=== PATIENT | female | born 1995 | race African-American/Black ===

== ENCOUNTER 2025-01-17 16:19 | Emergency (ER) | payer MEDICAID, SELFPAY ==
[2025-01-17 16:55] VITALS: BP 121/90; PULSE 84; RESP 18; TEMP 36.7; O2SAT 100
[2025-01-17 17:22] VITALS: BP 132/68; PULSE 81; RESP 18; O2SAT 100
--- NOTE | 2025-01-17 17:31 | ED.NAVMDI ---
HPI - Nausea/Vomiting/Diarrhea General Chief complaint: Nausea/Vomiting/Diarrhea Stated complaint: dizzy, ill feeling Time Seen by Provider: 01/17/25 17:17 History of Present Illness HPI Narrative: Patient is a 29-year-old female who presents ER with nausea vomiting. Ongoing over last week. Associated with dysuria. Has urinary urgency where she needs to be in the bathroom immediately otherwise she may go on herself. She has had fatigue as well as dizziness when she goes from sitting to standing. No spinning dizziness. Dizziness does not cause her nausea. No chest pain or shortness of breath. Related Data Allergies Allergy/AdvReac Type Severity Reaction Status Date / Time No Known Allergies Allergy Verified 01/17/25 17:28 Review of Systems Review of Systems: All systems reviewed & are unremarkable except as noted in HPI and below Constitutional: Constitutional: Reports no additional constitutional complaints ENT: Reports system reviewed and no additional complaints, except as documented Cardiovascular: Cardiovascular: Reports no additional cardiovascular complaints Respiratory: Respiratory: Reports no additional respiratory complaints Gastrointestinal: Gastrointestinal: Reports no additional gastrointestinal complaints Genitourinary: Genitourinary: Reports no additional female genitourinary complaints [facility] Past Medical History Medical History (Updated 01/17/25 @ 18:37 by oJb Loaiza MD) Healthy female adult Surgical History Surgical History (Updated 01/17/25 @ 17:32 by Job Loaiza MD) No pertinent past surgical history Exam Narrative: GENERAL: Well-appearing, well-nourished, and in no acute distress. HEAD: Normocephalic, atraumatic. ENT: Mucous membranes moist. TMs normal bilaterally. CHEST: Clear to auscultation. No respiratory distress. HEART: Regular rate and rhythm. Normal peripheral pulses. ABDOMEN: Soft, nontender, nondistended. EXTREMITIES: Normal range of motion. No edema. SKIN: Warm, dry, no rash. NEURO: Alert and oriented x3. PSYCH: Normal mood and affect. Course Course Emergency Course: Nonspecific transaminitis, hemoglobin mildly elevated. Patient hydrated. Educated on lab results. Appropriate for discharge home. Abdomen soft and nontender. Vital Signs Vital signs: Vital Signs Temperature 98.0 F 01/17/25 16:55 Pulse Rate 84 01/17/25 16:55 Respiratory Rate 18 01/17/25 16:55 Blood Pressure 121/90 01/17/25 16:55 Pulse Oximetry 100 01/17/25 16:55 Oxygen Delivery Room Air 01/17/25 16:55 Temperature 98.0 F 01/17/25 16:55 Pulse Rate 81 01/17/25 17:22 Respiratory Rate 18 01/17/25 17:22 Blood Pressure 132/68 01/17/25 17:22 Pulse Oximetry 100 01/17/25 17:22 Oxygen Delivery Room Air 01/17/25 17:22 MDM - Nausea/Vomiting/Diarrhea Lab Data 01/17/25 17:43 01/17/25 17:43 Labs: Lab Results 01/17/25 Range/Units 17:43 WBC 7.0 (4.5-10.0) K/mm3 RBC 5.07 (4.2-5.4) M/mm3 Hgb 15.8 H (12.0-15.0) g/dL Hct 45.4 (37.0-47.0) % MCV 89.5 (80-100) fl MCH 31.2 (26-34) pg MCHC 34.8 (32-36) g/dl RDW 11.9 (11.5-14.5) % Plt Count 294 (150-375) k/mm3 MPV 9.2 (7.4-10.4) fl Immature Gran % (Auto) 0.3 (0-0.5) % Neut % (Auto) 65.4 (45.5-73.1) % Lymph % (Auto) 19.3 (18.3-44.2) % [place] % (Auto) 9.2 H (2.6-8.5) % Eos % (Auto) 5.1 H (0-4.4) % Baso % (Auto) 0.7 (0.2-1.2) % Lymph # (Auto) 1.36 (0.9-3.2) K/mm3 [place] # (Auto) 0.7 H (0.1-0.6) K/mm3 Eos # (Auto) 0.4 H (0-0.3) K/mm3 Baso # (Auto) 0.1 (0.0-0.1) K/mm3 Abs Immat Gran (auto) 0.02 (0.00-0.031) K/mm3 Absolute Neuts (auto) 4.6 (1.3-6.7) K/mm3 Absolute Nucleated RBC 0.000 (0.0-0.012) K/mm3 Nucleated RBC % 0.0 (0.0-0.2) % Sodium 139 (137-145) mmol/L Potassium 4.1 (3.4-5.0) mmol/L Chloride 106 (98-107) mmol/L Carbon Dioxide 25 (22-30) mmol/L Anion Gap 8 (4-12) mmol/L BUN 13 (7-17) mg/dL Creatinine 0.93 (0.7-1.0) mg/dL Estim Creat Clear Calc 114 ml/min Estimated GFR > 60 (59 - ) Glucose 85 (65-110) mg/dL Calcium 9.4 (8.4-10.2) mg/dL Total Bilirubin 0.7 (0.2-1.3) mg/dL AST 45 H (14-36) U/L ALT 61 H (6-35) U/L Alkaline Phosphatase 62 (38-126) U/L Total Protein 8.4 H (6.3-8.2) g/dL Albumin 4.6 (3.5-5.1) g/dL Lipase 100 (23-300) U/L Urine Color Yellow (Yellow) Urine Appearance Cloudy H (Clear) Urine pH 6.5 (5.0-9.0) Ur Specific [place] 1.030 (1.001-1.035) Urine Protein Negative (Negative) mg/dL Urine Glucose (UA) Negative (Negative) mg/dL Urine Ketones Negative (Negative) mg/dL Ur Blood (Man) Negative (Negative) Urine Nitrate Negative (Negative) Urine Bilirubin Negative (Negative) Urine Urobilinogen 1.0 (<2.0) mg/dL Leukocyte Esterase Rfl Negative (Negative) MICHELE/UL Urine RBC 0-2 (0-2) /hpf Urine WBC 0-5 (0-3) /hpf Ur Squamous Epith Cells Occasional (Few) /hpf Urine Bacteria None seen /hpf Urine Casts 3-5 Discharge Plan Discharge Clinical Impression: Acute viral syndrome Patient Disposition: Home Condition: Stable Instructions: Viral Syndrome (ED) Additional Instructions: Return to the emergency department if you develop severe abdominal pain, severe nausea and vomiting to the point where you are unable to keep down fluids, if you develop chest pain or difficulty breathing, blood in your stool, dizziness or fainting, or if you develop any other new or concerning symptoms as these could be signs of more serious medical illness. Try to stay well hydrated. Patient Language: Israeli Follow-up/Referrals: PHYSICIAN NOT ON STAFF,NONSTAFF [Non-Staff] - 1 Week Stand Alone Forms: Work/School Release IP
[2025-01-17] MEDS: SODIUM CHLORIDE 0.9% IV 1,000 ML 999 ML IV CONT (17:42)
[2025-01-17] MEDS: ONDANSETRON INJ 4 MG/2 ML VIAL IV PUSH (17:42)
[2025-01-17 17:56] LABS: Hematocrit 45.4 % (37.0-47.0); Hemoglobin 15.8 g/dL (12.0-15.0); Immature Granulocyte Percent A 0.3 % (0-0.5); Lymphocytes Absolute Auto 1.36 K/mm3 (0.9-3.2); Mean Corpuscular HGB Conc 34.8 g/dl (32-36); Mean Corpuscular Hemoglobin 31.2 pg (26-34); Mean Corpuscular Volume 89.5 fl (80-100); Nucleated Red Blood Cells Absolute Auto 0.000 K/mm3 (0.0-0.012); Nucleated Red Blood Cells Perc 0.0 % (0.0-0.2); Platelet Count Result 294 k/mm3 (150-375); Red Blood Count 5.07 M/mm3 (4.2-5.4); White Blood Count 7.0 K/mm3 (4.5-10.0)
[2025-01-17 18:00] LABS: Add Urine Microscopic? YES; Appearance Urine Cloudy (Clear); Glucose Urine UA Negative (Negative); Leukocyte Esterase Ur Negative LEU/UL (Negative); Nitrate Urine Negative (Negative); Specific Grav Ur 1.030 (1.001-1.035)
[2025-01-17 18:06] LABS: Alanine Aminotransferase 61 U/L (6-35); Albumin Level 4.6 g/dL (3.5-5.1); Alkaline Phosphatase 62 U/L (38-126); Anion Gap 8 mmol/L (4-12); Aspartate Amino Transferase 45 U/L (14-36); Bilirubin,Total 0.7 mg/dL (0.2-1.3); Blood Urea Nitrogen 13 mg/dL (7-17); Calcium 9.4 mg/dL (8.4-10.2); Carbon Dioxide 25 mmol/L (22-30); Chloride 106 mmol/L (98-107); Estimated CRCL calculation 114 ml/min; Estimated Glomerular Filt Rate > 60; Glucose 85 mg/dL (65-110); Lipase 100 U/L (23-300); Potassium 4.1 mmol/L (3.4-5.0); Sodium 139 mmol/L (137-145); Total Protein 8.4 g/dL (6.3-8.2)
== END 2025-01-17 19:20 | disposition home or self-care (01) ==
PROVIDERS: Emergency Provider Emergency Medicine
DX: B34.9 Viral infection, unspecified (principal)
CPT/HCPCS: 36415; 80053; 81001; 83690; 85025; 96361; 96374; 99284; J2405; J7030

== ENCOUNTER 2025-02-09 21:20 | Emergency (ER) | payer MEDICAID, SELFPAY ==
--- NOTE | ~2025-02-09 | XR_ITS ---
EXAMINATION: XR chest 1V portable DATE: 02/10/2025 00:15 INDICATION: Cough TECHNIQUE: frontal view of the chest was obtained. COMPARISON: None FINDINGS: Patchy airspace opacities in the right mid and lower lung zones concerning for pneumonia. Left lung remains clear. No pulmonary edema, pleural effusion or pneumothorax. The cardiomediastinal silhouette is normal. Visualized bones and soft tissues are unremarkable. IMPRESSION: 1. Patchy airspace opacities in the right mid and lower lung zones consistent with pneumonia. Recommend radiographic follow-up to resolution. Reviewed, dictated and finalized at location A. IMPRESSION: 1. Patchy airspace opacities in the right mid and lower lung zones consistent w ith pneumonia. Recommend radiographic follow-up to resolution.
[2025-02-09 21:22] VITALS: BP 143/94; PULSE 75; RESP 18; TEMP 36.6; O2SAT 100
[2025-02-09 22:14] LABS: Influenza A QL RT-PCR Negative (Negative); Influenza B QL RT-PCR Negative (Negative); RSV RNA, RT-PCR Negative (Negative); SARS-CoV-2 RNA PCR Negative (Negative)
[2025-02-09 22:45] LABS: BEDSIDEPREGUCG Negative (Negative)
[2025-02-09 23:15] LABS: Hematocrit 40.9 % (37.0-47.0); Hemoglobin 14.3 g/dL (12.0-15.0); Immature Granulocyte Percent A 0.2 % (0-0.5); Lymphocytes Absolute Auto 1.52 K/mm3 (0.9-3.2); Mean Corpuscular HGB Conc 35.0 g/dl (32-36); Mean Corpuscular Hemoglobin 31.6 pg (26-34); Mean Corpuscular Volume 90.3 fl (80-100); Nucleated Red Blood Cells Absolute Auto 0.000 K/mm3 (0.0-0.012); Nucleated Red Blood Cells Perc 0.0 % (0.0-0.2); Platelet Count Result 298 k/mm3 (150-375); Red Blood Count 4.53 M/mm3 (4.2-5.4); White Blood Count 8.3 K/mm3 (4.5-10.0)
[2025-02-09 23:19] LABS: Alanine Aminotransferase 34 U/L (6-35); Albumin Level 4.2 g/dL (3.5-5.1); Alkaline Phosphatase 81 U/L (38-126); Anion Gap 7 mmol/L (4-12); Aspartate Amino Transferase 32 U/L (14-36); Bilirubin,Total 0.3 mg/dL (0.2-1.3); Blood Urea Nitrogen 6 mg/dL (7-17); Calcium 9.3 mg/dL (8.4-10.2); Carbon Dioxide 26 mmol/L (22-30); Chloride 103 mmol/L (98-107); Estimated CRCL calculation 183 ml/min; Estimated Glomerular Filt Rate > 60; Glucose 85 mg/dL (65-110); Potassium 3.8 mmol/L (3.4-5.0); Sodium 136 mmol/L (137-145); Total Protein 8.1 g/dL (6.3-8.2)
[2025-02-09 23:22] VITALS: BP 146/98; PULSE 71; RESP 20; O2SAT 100
--- NOTE | 2025-02-09 23:51 | ECG_ITS ---
Test Date: 2025-02-10 00:00:13 Measurements Intervals [place] Rate: 69 P: 17 [place]: 136 QRS: 33 QRSD: 97 T: 29 QT: 387 QTc: 415 Interpretive Statements SINUS RHYTHM NONSPECIFIC T-WAVE ABNORMALITY ABNORMAL ECG No previous ECG available for comparison Electronically Signed On 02-10-2025 11:11:34 CDT by Delbert Bean M.D.
--- NOTE | 2025-02-09 23:53 | ED_ITS ---
HPI - Dizziness General Chief Complaint: Dizziness Stated Complaint: Dizziness, sweating, hot and cold flashes Time Seen by Provider: 02/09/25 23:21 History of Present Illness HPI Narrative: 29 y/o F presents to the emergency department for multiple medical complaints. Patient states over the past 3 3 days she has had nausea, vomiting, 2 episodes of diarrhea daily. She states today she began to feel lightheaded when going from a sitting to standing position which prompted her to come to the ED. she states her children recently sick with similar symptoms, however there symptoms did not last for 3 days. She denies any fever or chest pain. She is endorsing a mild productive cough. Denies fever. She states her abdomen feels ?bloated?, but she denies any focal pain. She denies dysuria or hematuria but does state that she has had a malodorous vaginal discharge over the past few days. She states she is sexually active with her and has no concern for STDs. She denies vaginal itching or irritation, denies vaginal bleeding. LMP 01/29/2025. Related Data Allergies Allergy/AdvReac Type Severity Reaction Status Date / Time No Known Allergies Allergy Verified 01/17/25 17:28 Review of Systems 2 Review of Systems: All systems reviewed & are unremarkable except as noted in HPI and below PMFSH Past Medical History Medical History Healthy female adult Surgical History Surgical History No pertinent past surgical history Exam 2 Narrative: GENERAL: Well-appearing, well-nourished, and in no acute distress. HEAD: Normocephalic, atraumatic. EYES: EOMI. ENT: Nares clear, no rhinorrhea or epistaxis. Mucous membranes moist. NECK: Supple. CHEST: Clear to auscultation. No respiratory distress. HEART: Regular rate and rhythm. No murmur heard. Normal peripheral pulses. ABDOMEN: Soft, nontender, nondistended, normal active bowel sounds. No rebound, guarding or rigidity. No CVA tenderness. EXTREMITIES: Normal range of motion. No edema. SKIN: Warm, dry, no rash. NEURO: No focal deficits. Alert and oriented x3 Course Vital Signs Vital signs: Vital Signs Temperature 97.9 F 09/02/25 21:22 Pulse Rate 75 02/09/25 21:22 Respiratory Rate 18 02/09/25 21:22 Blood Pressure 143/94 H 02/09/25 21:22 Pulse Oximetry 100 02/09/25 21:22 Oxygen Delivery Room Air 02/09/25 21:22 Temperature 97.9 F 02/09/25 21:22 Pulse Rate 97 02/10/25 00:21 Respiratory Rate 20 02/10/25 00:19 Blood Pressure 132/81 02/10/25 00:21 Pulse Oximetry 100 02/10/25 00:19 Oxygen Delivery Room Air 02/09/25 21:22 MDM - Dizziness MDM Narrative Medical decision making narrative: 29-year-old female presents emergency department for multiple medical complaints. Patient is reporting N/V/D, lightheadedness when going from sitting to standing position, cough and vaginal discharge. See HPI for further history. Triage vitals are stable. Patient is afebrile and nontoxic appearing and resting comfortably in exam bed. Abdomen is soft and nontender. CBC without leukocytosis or anemia. Chemistries are unremarkable. Lipase is within normal limits. is negative. Viral swabs are negative. UA is unremarkable. BV pending. EKG shows normal sinus rhythm with a rate of 69 ppm, normal SD interval, normal QRS duration, normal QTC, no ST elevations or depressions. Chest x-ray shows increased opacities in the right lung, recommend correlation with infection. Pt received IV fluids and Zofran and is resting comfortably in exam bed on re- evaluation. Pt ambulatory in the ED with steady gait. Will treat for CAP with Augmentin and azithromycin. Curb-65 is 0. I advised her to follow-up with PCP, referral provided. Additionally I did discuss empirically treating for BV pending formal results. Patient would like to wait for results prior to treatment. Will provide her with OBGYN follow-up. Discussed strict ED return precautions. Patient is agreeable to plan verbalized understanding. Discharged in stable condition. Lab Data 02/09/25 23:02 02/09/25 23:02 Labs: Lab Results 02/09/25 02/09/25 02/09/25 Range/Units 21:32 22:43 23:02 WBC 8.3 (4.5-10.0) K/mm3 RBC 4.53 (4.2-5.4) M/mm3 Hgb 14.3 (12.0-15.0) g/dL Hct 40.9 (37.0-47.0) % MCV 90.3 (80-100) fl MCH 31.6 (26-34) pg MCHC 35.0 (32-36) g/dl RDW 12.1 (11.5-14.5) % Plt Count 298 (150-375) k/mm3 MPV 8.8 (7.4-10.4) fl Immature Gran % (Auto) 0.2 (0-0.5) % Neut % (Auto) 71.1 (45.5-73.1) % Lymph % (Auto) 18.4 (18.3-44.2) % [place] % (Auto) 7.5 (2.6-8.5) % Eos % (Auto) 2.4 (0-4.4) % Baso % (Auto) 0.4 (0.2-1.2) % Lymph # (Auto) 1.52 (0.9-3.2) K/mm3 [place] # (Auto) 0.6 (0.1-0.6) K/mm3 Eos # (Auto) 0.2 (0-0.3) K/mm3 Baso # (Auto) 0.0 (0.0-0.1) K/mm3 Abs Immat Gran (auto) 0.02 (0.00-0.031) K/mm3 Absolute Neuts (auto) 5.9 (1.3-6.7) K/mm3 Absolute Nucleated RBC 0.000 (0.0-0.012) K/mm3 Nucleated RBC % 0.0 (0.0-0.2) % Sodium 136 L (137-145) mmol/L Potassium 3.8 (3.4-5.0) mmol/L Chloride 103 (98-107) mmol/L Carbon Dioxide 26 (22-30) mmol/L Anion Gap 7 (4-12) mmol/L BUN 6 L D (7-17) mg/dL Creatinine 0.57 L (0.7-1.0) mg/dL Estim Creat Clear Calc 183 ml/min Estimated GFR > 60 (59 - ) Glucose 85 (65-110) mg/dL Calcium 9.3 (8.4-10.2) mg/dL Total Bilirubin 0.3 (0.2-1.3) mg/dL AST 32 (14-36) U/L ALT 34 (6-35) U/L Alkaline Phosphatase 81 (38-126) U/L Total Protein 8.1 (6.3-8.2) g/dL Albumin 4.2 (3.5-5.1) g/dL Lipase 78 (23-300) U/L Urine Color (Yellow) Urine Appearance (Clear) Urine pH (5.0-9.0) Ur Specific [place] (1.001-1.035) Urine Protein (Negative) mg/dL Urine Glucose (UA) (Negative) mg/dL Urine Ketones (Negative) mg/dL Ur Blood (Man) (Negative) Urine Nitrate (Negative) Urine Bilirubin (Negative) Urine Urobilinogen (<2.0) mg/dL Leukocyte Esterase Rfl (Negative) MICHELE/UL POC Urine HCG, Qual Negative (Negative) Influenza A (RT-PCR) Negative (Negative) Influenza B (RT-PCR) Negative (Negative) RSV (RT-PCR) Negative (Negative) SARS-CoV-2 RNA (RT-PCR) Negative (Negative) Bact Vaginosis Panel 02/09/25 Range/Units 23:59 WBC (4.5-10.0) K/mm3 RBC (4.2-5.4) M/mm3 Hgb (12.0-15.0) g/dL Hct (37.0-47.0) % MCV (80-100) fl MCH (26-34) pg MCHC (32-36) g/dl RDW (11.5-14.5) % Plt Count (150-375) k/mm3 MPV (7.4-10.4) fl Immature Gran % (Auto) (0-0.5) % Neut % (Auto) (45.5-73.1) % Lymph % (Auto) (18.3-44.2) % [place] % (Auto) (2.6-8.5) % Eos % (Auto) (0-4.4) % Baso % (Auto) (0.2-1.2) % Lymph # (Auto) (0.9-3.2) K/mm3 [place] # (Auto) (0.1-0.6) K/mm3 Eos # (Auto) (0-0.3) K/mm3 Baso # (Auto) (0.0-0.1) K/mm3 Abs Immat Gran (auto) (0.00-0.031) K/mm3 Absolute Neuts (auto) (1.3-6.7) K/mm3 Absolute Nucleated RBC (0.0-0.012) K/mm3 Nucleated RBC % (0.0-0.2) % Sodium (137-145) mmol/L Potassium (3.4-5.0) mmol/L Chloride (98-107) mmol/L Carbon Dioxide (22-30) mmol/L Anion Gap (4-12) mmol/L BUN (7-17) mg/dL Creatinine (0.7-1.0) mg/dL Estim Creat Clear Calc ml/min Estimated GFR (59 - ) Glucose (65-110) mg/dL Calcium (8.4-10.2) mg/dL Total Bilirubin (0.2-1.3) mg/dL AST (14-36) U/L ALT (6-35) U/L Alkaline Phosphatase (38-126) U/L Total Protein (6.3-8.2) g/dL Albumin (3.5-5.1) g/dL Lipase (23-300) U/L Urine Color Yellow (Yellow) Urine Appearance Clear (Clear) Urine pH 8.5 (5.0-9.0) Ur Specific [place] 1.011 (1.001-1.035) Urine Protein Negative (Negative) mg/dL Urine Glucose (UA) Negative (Negative) mg/dL Urine Ketones Negative (Negative) mg/dL Ur Blood (Man) Negative (Negative) Urine Nitrate Negative (Negative) Urine Bilirubin Negative (Negative) Urine Urobilinogen 0.2 (<2.0) mg/dL Leukocyte Esterase Rfl Negative (Negative) MICHELE/UL POC Urine HCG, Qual (Negative) Influenza A (RT-PCR) (Negative) Influenza B (RT-PCR) (Negative) RSV (RT-PCR) (Negative) SARS-CoV-2 RNA (RT-PCR) (Negative) Bact Vaginosis Panel Pending Discharge Plan Discharge Clinical Impression: CAP (community acquired pneumonia), Vaginal discharge Patient Disposition: Home Condition: Stable Instructions: Antibiotic Form, Community Acquired Pneumonia (DC), Bacterial Pneumonia (DC), Vaginal Discharge (ED) Additional Instructions: Please take antibiotics as directed. Make sure to drink plenty fluids including water, Gatorade and Pedialyte. Follow-up closely with the primary care provider in OBGYN I have referred you to. Return to the emergency department if you develop abdominal pain, fever, vomiting, or other concerning symptoms. Patient Language: Greek Prescriptions: New azithromycin 250 mg tablet See Rx Instructions .ROUTE .COMPLEX Qty: 6 0RF Rx Instructions: For 250 mg dose pack: take 500 mg today (day 1), then 250 mg for 4 days (days 2-5) amoxicillin-pot clavulanate 875-125 mg tablet 1 tablet PO Q12H Qty: 14 0RF ondansetron 4 mg tablet,disintegrating 4 mg PO Q8H Qty: 10 0RF Follow-up/Referrals: Franklin Mckay MD [Physician, Family Practice] PHYSICIAN,WASTE OIL PUMPER [Primary Care Provider, Internal Medicine] Tejas Langford MD [Physician, [facility]NER] Stand Alone Forms: Work/School Release IP
[2025-02-10] MEDS: SODIUM CHLORIDE 0.9% IV 1,000 ML 999 ML IV CONT
[2025-02-10] MEDS: ONDANSETRON INJ 4 MG/2 ML VIAL IV PUSH
[2025-02-10 00:02] LABS: Lipase 78 U/L (23-300)
[2025-02-10 00:15] LABS: Add Urine Microscopic? NO; Appearance Urine Clear (Clear); Glucose Urine UA Negative (Negative); Leukocyte Esterase Ur Negative LEU/UL (Negative); Nitrate Urine Negative (Negative); Specific Grav Ur 1.011 (1.001-1.035)
[2025-02-10 00:19] VITALS: BP 131/77; PULSE 69; RESP 20; O2SAT 100
[2025-02-10 00:20] VITALS: BP 131/77; PULSE 61
[2025-02-10 00:21] VITALS: BP 129/70; BP 132/81; PULSE 80; PULSE 97
[2025-02-10] MEDS: AZITHROMYCIN 500 MG TABLET PO (03:24)
== END 2025-02-10 03:30 | disposition home or self-care (01) ==
PROVIDERS: Student in an Organized Health Care Education/Training Program; Emergency Provider Physician Assistant
DX: J18.9 Pneumonia, unspecified organism (principal); N89.8 Other specified noninflammatory disorders of vagina; Z20.822 Contact with and (suspected) exposure to COVID-19
CPT/HCPCS: 36415; 71045; 80053; 81003; 81025; 81513; 83690; 85025; 87637; 87798; 93005; 96361; 96374; 99284; A9270; J2405; J7030

== ENCOUNTER 2025-03-09 23:45 | Emergency (ER) | payer SELFPAY ==
--- NOTE | ~2025-03-09 | US_ITS ---
US OB transvaginal 03/10/2025 03:55 Indication: Evaluate for ectopic . Procedure: Transvaginal early obstetrical ultrasound Comparison: No prior studies for comparison. Findings: Uterus measures 8.2 x 3.8 x 4.4 cm. No intrauterine identified. Ovaries within normal limits. Right ovary measures 4.2 x 2.1 x 2.5 cm. Left ovary measures 2.6 x 1.7 x 1.9 cm. There is trace free fluid in the pelvic cul-de-sac. No intrauterine identified. Impression: 1: No evidence for gestational sac or intrauterine . Normal endometrium. Differential diagnosis includes early intrauterine , failed and ectopic . Recommend follow-up with serial quantitative beta-hCG levels and ultrasound as clinically warranted. Reviewed, dictated and finalized at location B. Impression: 1: No evidence for gestational sac or intrauterine . Normal endometriu m. Differential diagnosis includes early intrauterine , failed pregnan cy and ectopic . Recommend follow-up with serial quantitative beta-hCG levels and ultrasound as clinically warranted.
[2025-03-09 23:48] VITALS: BP 166/83; PULSE 97; RESP 20; TEMP 36.7; O2SAT 98
[2025-03-10 02:15] LABS: INR 1.1; Partial Thromboplastin Time 30.5 Seconds (22.3-36.8); Prothrombin Time 14.2 Seconds (11.1-14.7)
[2025-03-10 02:16] LABS: Hematocrit 40.1 % (37.0-47.0); Hemoglobin 13.9 g/dL (12.0-15.0); Immature Granulocyte Percent A 0.1 % (0-0.5); Lymphocytes Absolute Auto 1.77 K/mm3 (0.9-3.2); Mean Corpuscular HGB Conc 34.7 g/dl (32-36); Mean Corpuscular Hemoglobin 31.1 pg (26-34); Mean Corpuscular Volume 89.7 fl (80-100); Nucleated Red Blood Cells Absolute Auto 0.000 K/mm3 (0.0-0.012); Nucleated Red Blood Cells Perc 0.0 % (0.0-0.2); Platelet Count Result 306 k/mm3 (150-375); Red Blood Count 4.47 M/mm3 (4.2-5.4); White Blood Count 8.1 K/mm3 (4.5-10.0)
[2025-03-10 02:17] LABS: Alanine Aminotransferase 44 U/L (6-35); Albumin Level 4.0 g/dL (3.5-5.1); Alkaline Phosphatase 65 U/L (38-126); Anion Gap 8 mmol/L (4-12); Aspartate Amino Transferase 47 U/L (14-36); Beta HCG Quantitative 400.96 mIU/ML; Bilirubin,Total 0.3 mg/dL (0.2-1.3); Blood Urea Nitrogen 13 mg/dL (7-17); Calcium 9.4 mg/dL (8.4-10.2); Carbon Dioxide 23 mmol/L (22-30); Chloride 107 mmol/L (98-107); Estimated CRCL calculation 148 ml/min; Estimated Glomerular Filt Rate > 60; Glucose 101 mg/dL (65-110); Potassium 3.7 mmol/L (3.4-5.0); Sodium 138 mmol/L (137-145); Total Protein 7.4 g/dL (6.3-8.2)
[2025-03-10 02:20] LABS: Add Urine Microscopic? YES; Appearance Urine Cloudy (Clear); Glucose Urine UA Negative (Negative); Leukocyte Esterase Ur Negative LEU/UL (Negative); Need Manual Microscopic Reviewed; Nitrate Urine Negative (Negative); Non Pathogenic Casts 0-2; Specific Grav Ur 1.028 (1.001-1.035)
--- NOTE | 2025-03-10 03:39 | ED.FEMALEGU ---
HPI - Female Genitourinary General Chief complaint: ART CLASS MODEL Stated complaint: menstural cramp, vag bleed Time Seen by Provider: 03/10/25 02:54 History of Present Illness HPI Narrative: 29-year-old otherwise healthy female presenting to the emergency department vaginal bleeding and abdominal cramping. She states she is having what appears to be an abnormal. For her. It is late by about 1 week. Denies any bright red bleeding states she is passing dark brown material. Endorses cramping intermittently. No fever, chills, upper abdominal pain, nausea, vomiting. Her thought she could be . Has a history of preeclampsia during previous pregnancies but no surgical emergencies. Does not currently have an OBGYN as she moved from out of [facility]. Related Data Allergies Allergy/AdvReac Type Severity Reaction Status Date / Time No Known Allergies Allergy Verified 03/09/25 23:52 Review of Systems Review of Systems: As reviewed above in HPI [facility] Past Medical History Medical History Healthy female adult Surgical History Surgical History No pertinent past surgical history Exam Narrative: GENERAL: [Well-appearing, well-nourished, and in no acute distress.] HEAD: [Normocephalic, atraumatic.] EYES: [PERRLA and EOMI.] ENT: Nares clear, no rhinorrhea or epistaxis. Mucous membranes moist. NECK: Supple. CHEST: [Clear to auscultation. No respiratory distress.] HEART: [Regular rate and rhythm]. No murmur heard. [Normal peripheral pulses.] ABDOMEN: [Soft, nondistended], [nontender], [No rigidity or guarding] EXTREMITIES: Normal range of motion. [No edema.] SKIN: Warm, dry, no rash. NEURO: [No focal deficits]. Alert and oriented [x3.] PSYCH: [Normal mood and affect.] Course Vital Signs Vital signs: Vital Signs Temperature 36.7 C 03/09/25 23:48 Pulse Rate 97 03/09/25 23:48 Respiratory Rate 20 03/09/25 23:48 Blood Pressure 166/83 H 03/09/25 23:48 Pulse Oximetry 98 03/09/25 23:48 Oxygen Delivery Room Air 03/09/25 23:48 Temperature 36.7 C 03/09/25 23:48 Pulse Rate 97 03/09/25 23:48 Respiratory Rate 20 03/09/25 23:48 Blood Pressure 166/83 H 03/09/25 23:48 Pulse Oximetry 98 03/09/25 23:48 Oxygen Delivery Room Air 03/09/25 23:48 MDM - Female Genitourinary MDM Narrative Medical decision making narrative: 29-year-old otherwise healthy female presenting to the emergency department vaginal bleeding and abdominal cramping. She states she is having what appears to be an abnormal. For her. It is late by about 1 week. Denies any bright red bleeding states she is passing dark brown material. Endorses cramping intermittently. No fever, chills, upper abdominal pain, nausea, vomiting. Her thought she could be . Has a history of preeclampsia during previous pregnancies but no surgical emergencies. Does not currently have an OBGYN [place] Patient is hemodynamically stable but does have an elevated blood pressure. No tachycardia, fever, hypoxemia. Differential includes normal vaginal bleeding in , ectopic , miscarriage, menstrual cycle, irregular or dysfunctional uterine bleeding. Patient's test is positive. Remaining laboratory studies are largely unremarkable. Ultrasound obtained to rule out ectopic . Ultrasound shows no acute abnormality. No gestational sac seen but beta hCG is only 400 so unlikely be visualized. Likely early versus ectopic not able to be ruled out. Unremarkable ovaries. Discussed this with the patient and she will need to follow-up with 48 hour ultrasound and hCG levels. Given OBGYN follow-up and referral and if she is not able to follow-up by Saturday she should return to the emergency department for these tests and imaging. Patient expressed understanding these instructions and safely discharged home at this time. Medical Records Attestation: I reviewed the patient's medical records. Lab Data Attestation: I reviewed the patient's lab results. 03/10/25 00:52 03/10/25 00:52 Labs: Lab Results 03/10/25 03/10/25 Range/Units 00:52 00:56 WBC 8.1 (4.5-10.0) K/mm3 RBC 4.47 (4.2-5.4) M/mm3 Hgb 13.9 (12.0-15.0) g/dL Hct 40.1 (37.0-47.0) % MCV 89.7 (80-100) fl MCH 31.1 (26-34) pg MCHC 34.7 (32-36) g/dl RDW 12.4 (11.5-14.5) % Plt Count 306 (150-375) k/mm3 MPV 8.9 (7.4-10.4) fl Immature Gran % (Auto) 0.1 (0-0.5) % Neut % (Auto) 65.3 (45.5-73.1) % Lymph % (Auto) 21.8 (18.3-44.2) % [place] % (Auto) 9.0 H (2.6-8.5) % Eos % (Auto) 3.3 (0-4.4) % Baso % (Auto) 0.5 (0.2-1.2) % Lymph # (Auto) 1.77 (0.9-3.2) K/mm3 [place] # (Auto) 0.7 H (0.1-0.6) K/mm3 Eos # (Auto) 0.3 (0-0.3) K/mm3 Baso # (Auto) 0.0 (0.0-0.1) K/mm3 Abs Immat Gran (auto) 0.01 (0.00-0.031) K/mm3 Absolute Neuts (auto) 5.3 (1.3-6.7) K/mm3 Absolute Nucleated RBC 0.000 (0.0-0.012) K/mm3 Nucleated RBC % 0.0 (0.0-0.2) % PT 14.2 (11.1-14.7) Seconds INR 1.1 APTT 30.5 (22.3-36.8) Seconds Sodium 138 (137-145) mmol/L Potassium 3.7 (3.4-5.0) mmol/L Chloride 107 (98-107) mmol/L Carbon Dioxide 23 (22-30) mmol/L Anion Gap 8 (4-12) mmol/L BUN 13 D (7-17) mg/dL Creatinine 0.72 (0.7-1.0) mg/dL Estim Creat Clear Calc 148 ml/min Estimated GFR > 60 (59 - ) Glucose 101 (65-110) mg/dL Calcium 9.4 (8.4-10.2) mg/dL Total Bilirubin 0.3 (0.2-1.3) mg/dL AST 47 H (14-36) U/L ALT 44 H (6-35) U/L Alkaline Phosphatase 65 (38-126) U/L Total Protein 7.4 (6.3-8.2) g/dL Albumin 4.0 (3.5-5.1) g/dL Beta HCG, Quant 400.96 mIU/ML Urine Color Yellow (Yellow) Urine Appearance Cloudy H (Clear) Urine pH 6.0 (5.0-9.0) Ur Specific [place] 1.028 (1.001-1.035) Urine Protein Negative (Negative) mg/dL Urine Glucose (UA) Negative (Negative) mg/dL Urine Ketones Trace H (Negative) mg/dL Ur Blood (Man) Negative (Negative) Urine Nitrate Negative (Negative) Urine Bilirubin Negative (Negative) Urine Urobilinogen 1.0 (<2.0) mg/dL Add Ur Microanalysis Reviewed Leukocyte Esterase Rfl Negative (Negative) MICHELE/UL Urine RBC 0-2 (0-2) /hpf Urine WBC 0-5 (0-3) /hpf Ur Squamous Epith Cells None seen (Few) /hpf Urine Bacteria None seen /hpf Urine Casts 0-2 Imaging Data Attestation: I personally reviewed and interpreted this imaging study as follows: Radiologist's impression: No acute abnormality. Unremarkable ovaries. No gestational sac early versus failed versus ectopic Discharge Plan Discharge Clinical Impression: Bleeding in early Patient Disposition: Home Condition: Stable Instructions: Antibiotic Form, Abdominal Pain in (ED) Additional Instructions: Your beta hCG level is only 400 which is below the visualized below threshold for location. Ultrasound does not show any free fluid or bleeding but we do not have a visualized below K showed the . Follow-up in 48 hours for repeat hCG testing and repeat ultrasound. Contact the provided OBGYN to get this done and if not able to return to the emergency department. Return with any urgent concerns such as worsening bleeding or pain or any other issues. Patient Language: Macanese Prescriptions: No Action azithromycin 250 mg tablet See Rx Instructions .ROUTE .COMPLEX Qty: 6 0RF Rx Instructions: For 250 mg dose pack: take 500 mg today (day 1), then 250 mg for 4 days (days 2-5) amoxicillin-pot clavulanate 875-125 mg tablet 1 tablet PO Q12H Qty: 14 0RF ondansetron 4 mg tablet,disintegrating 4 mg PO Q8H Qty: 10 0RF Follow-up/Referrals: Ryan Melendez MD [Physician, [employer]ER] - 2 Days Referral Note: [facility] and [facility] PHYSICIAN,SENIOR LOAN OFFICER [Primary Care Provider, Internal Medicine] Time of Disposition: 05:25
== END 2025-03-10 05:37 | disposition home or self-care (01) ==
PROVIDERS: Emergency Provider Student in an Organized Health Care Education/Training Program
DX: O20.9 Hemorrhage in early pregnancy, unspecified (principal); Z3A.00 Weeks of gestation of pregnancy not specified
CPT/HCPCS: 36415; 76817; 80053; 81001; 84702; 85025; 85610; 85730; 99284

== ENCOUNTER 2025-03-12 20:59 | Emergency (ER) | payer OTHER, SELFPAY ==
[2025-03-12 21:01] VITALS: BP 140/82; PULSE 99; RESP 18; TEMP 36.7; O2SAT 97
--- NOTE | 2025-03-12 22:47 | ED.DIZZY ---
HPI - Dizziness General Chief Complaint: Dizziness Stated Complaint: possible preg test Time Seen by Provider: 03/12/25 22:21 History of Present Illness HPI Narrative: Patient is a 29-year-old female who presents to the ER with complaints of dizziness and request for an hCG recheck. She reports she was here 2 days ago and was told she was but needed to follow-up for concurrent hCG levels. Patient reports she has been experiencing dizziness, nausea and vomiting, GERD since she was here. She denies any vaginal bleeding, urinary symptoms, abdominal pain. Patient is unsure when her last menstrual period was because her menstrual periods are irregular at baseline. She denies any concern for STDs. Patient reports she has had a total of 5 pregnancies with 2 living births. Related Data Allergies Allergy/AdvReac Type Severity Reaction Status Date / Time No Known Allergies Allergy Verified 03/12/25 21:04 Review of Systems Review of Systems: All systems reviewed & are unremarkable except as noted in HPI and below PMFSH Past Medical History Medical History Healthy female adult Surgical History Surgical History No pertinent past surgical history Exam Narrative: GENERAL: Well appearing, obese, non-toxic, in no acute distress. HEAD: Normocephalic, atraumatic. NECK: Supple. No adenopathy, no masses. RESPIRATORY: Airway patent, respirations nonlabored. Clear to auscultation bilaterally, no rales, rhonchi, wheezing. CARDIOVASCULAR: Regular rate and rhythm without murmurs, rubs, or gallops. Peripheral pulses 2+ and equal bilaterally. ABDOMINAL: Soft, nontender, nondistended, no hepatosplenomegaly. Normoactive BS. MUSCULOSKELETAL: Moves all extremities. Strength/ROM intact without gross deformities. SKIN: Warm, dry, normal color. No rashes. NEURO: A&O X3. Speech clear. Cranial nerves II-XII intact. No ataxic movements. PSYCHIATRIC: Appropriate mood and affect. Normal interaction. Course Vital Signs Vital signs: Vital Signs Temperature 36.7 C 03/12/25 21:01 Pulse Rate 99 03/12/25 21:01 Respiratory Rate 18 03/12/25 21:01 Blood Pressure 140/82 03/12/25 21:01 Pulse Oximetry 97 03/12/25 21:01 Oxygen Delivery Room Air 03/12/25 21:01 Temperature 36.7 C 03/12/25 21: Pulse Rate 99 03/12/25 21:01 Respiratory Rate 18 03/12/25 21:01 Blood Pressure 140/82 03/12/25 21:01 Pulse Oximetry 97 03/12/25 21:01 Oxygen Delivery Room Air 03/12/25 21:01 MDM - Dizziness MDM Narrative Medical decision making narrative: Patient is a 29-year-old female who presents to the ER with complaints of dizziness and request for an hCG recheck. She reports she was here 2 days ago and was told she was but needed to follow-up for concurrent hCG levels. Patient reports she has been experiencing dizziness, nausea and vomiting, GERD since she was here. She denies any vaginal bleeding, urinary symptoms, abdominal pain. Patient is unsure when her last menstrual period was because her menstrual periods are irregular at baseline. She denies any concern for STDs. Patient reports she has had a total of 5 pregnancies with 2 living births. Upon further discussion patient reports she has been intermittently passing some dark brown vaginal discharge. Labs Ordered: CBC, CMP, UA, beta hCG Imaging Ordered: None necessary Medications Ordered: 1 L normal saline IV bolus, Zofran 4 mg IV, Keflex p.o. Results: Patient's urinalysis indicates she has urinary tract infection. Her HCG levels have not increased much from when she was here in the ER two days ago. Diagnosis: Urinary tract infection, threatened miscarriage Patient Education/Shared MDM: Results of lab work shared with patient. Patient continues to deny any pain at this time. She will be given her 1st dose of oral antibiotic here in the ER. Patient strongly advised to maintain hydration status upon discharge and follow-up with her OBGYN as soon as possible. She will be discharged home with a prescription for Keflex. Strict return precautions provided. Patient verbalized understanding and is in agreement with plan. Vital signs stable at time of discharge. All questions answered. Differential Diagnosis Differential diagnosis: Likely other (Threatened miscarriage, urinary tract infection, vaginal bleeding) Lab Data Attestation: I reviewed the patient's lab results. 03/12/25 22:44 03/12/25 22:45 Labs: Lab Results 10/09/0103/12/25 03/12/25 Range/Units 22:44 22:45 23:41 WBC 8.0 (4.5-10.0) K/mm3 RBC 4.35 (4.2-5.4) M/mm3 Hgb 13.6 (12.0-15.0) g/dL Hct 39.0 (37.0-47.0) % MCV 89.7 (80-100) fl MCH 31.3 (26-34) pg MCHC 34.9 (32-36) g/dl RDW 12.6 (11.5-14.5) % Plt Count 306 (150-375) k/mm3 MPV 8.8 (7.4-10.4) fl Immature Gran % (Auto) 0.3 (0-0.5) % Neut % (Auto) 66.4 (45.5-73.1) % Lymph % (Auto) 20.7 (18.3-44.2) % Hind[place] % (Auto) 8.5 (2.6-8.5) % Eos % (Auto) 3.6 (0-4.4) % Baso % (Auto) 0.5 (0.2-1.2) % Lymph # (Auto) 1.65 (0.9-3.2) K/mm3 Hind[place] # (Auto) 0.7 H (0.1-0.6) K/mm3 Eos # (Auto) 0.3 (0-0.3) K/mm3 Baso # (Auto) 0.0 (0.0-0.1) K/mm3 Abs Immat Gran (auto) 0.02 (0.00-0.031) K/mm3 Absolute Neuts (auto) 5.3 (1.3-6.7) K/mm3 Absolute Nucleated RBC 0.000 (0.0-0.012) K/mm3 Nucleated RBC % 0.0 (0.0-0.2) % Sodium 136 L (137-145) mmol/L Potassium 3.8 (3.4-5.0) mmol/L Chloride 105 (98-107) mmol/L Carbon Dioxide 25 (22-30) mmol/L Anion Gap 6 (4-12) mmol/L BUN 12 (7-17) mg/dL Creatinine 1.08 H (0.7-1.0) mg/dL Estim Creat Clear Calc Not Reportable Estimated GFR 60 (59 - ) Glucose 86 (65-110) mg/dL Calcium 9.2 (8.4-10.2) mg/dL Total Bilirubin 0.5 (0.2-1.3) mg/dL AST 35 (14-36) U/L ALT 42 H (6-35) U/L Alkaline Phosphatase 66 (38-126) U/L Total Protein 7.3 (6.3-8.2) g/dL Albumin 3.8 (3.5-5.1) g/dL Beta HCG, Quant 504.66 mIU/ML Urine Color Yellow (Yellow) Urine Appearance Clear (Clear) Urine pH 5.0 (5.0-9.0) Ur Specific [place] 1.010 (1.001-1.035) Urine Protein Negative (Negative) mg/dL Urine Glucose (UA) Negative (Negative) mg/dL Urine Ketones Negative (Negative) mg/dL Ur Blood (Man) Negative (Negative) Urine Nitrate Negative (Negative) Urine Bilirubin Negative (Negative) Urine Urobilinogen 0.2 (<2.0) mg/dL Add Ur Microanalysis Reviewed Leukocyte Esterase Rfl Negative (Negative) MICHELE/UL Urine RBC 11-20 H (0-2) /hpf Urine WBC 4-6 H (0-3) /hpf Ur Squamous Epith Cells Few (Few) /hpf Urine Bacteria 1+ H (None) /hpf Urine Casts 0-2 Discharge Plan Discharge Clinical Impression: Urinary tract infection, Threatened Patient Disposition: Home Condition: Stable Instructions: Antibiotic Form, Urinary Tract Infection in (ED) Additional Instructions: Please return to the ER with any worsening symptoms. Follow-up with your OBGYN as soon as possible for repeat hCG levels. You may take Tylenol as needed for pain control. Please complete your full dose of antibiotics. Remember to drink lots of water. Patient Language: [place] Prescriptions: New cephalexin 500 mg capsule 500 mg PO Q8H 7 Days Qty: 21 0RF No Action azithromycin 250 mg tablet See Rx Instructions .ROUTE .COMPLEX Qty: 6 0RF Rx Instructions: For 250 mg dose pack: take 500 mg today (day 1), then 250 mg for 4 days (days 2-5) amoxicillin-pot clavulanate 875-125 mg tablet 1 tablet PO Q12H Qty: 14 0RF ondansetron 4 mg tablet,disintegrating 4 mg PO Q8H Qty: 10 0RF Follow-up/Referrals: PHYSICIAN,AIR TRANSPORTATION PROVIDER [Primary Care Provider, Internal Medicine] Stand Alone Forms: Work/School Release IP Time of Disposition: 01:32
[2025-03-12 22:54] LABS: Hematocrit 39.0 % (37.0-47.0); Hemoglobin 13.6 g/dL (12.0-15.0); Immature Granulocyte Percent A 0.3 % (0-0.5); Lymphocytes Absolute Auto 1.65 K/mm3 (0.9-3.2); Mean Corpuscular HGB Conc 34.9 g/dl (32-36); Mean Corpuscular Hemoglobin 31.3 pg (26-34); Mean Corpuscular Volume 89.7 fl (80-100); Nucleated Red Blood Cells Absolute Auto 0.000 K/mm3 (0.0-0.012); Nucleated Red Blood Cells Perc 0.0 % (0.0-0.2); Platelet Count Result 306 k/mm3 (150-375); Red Blood Count 4.35 M/mm3 (4.2-5.4); White Blood Count 8.0 K/mm3 (4.5-10.0)
[2025-03-12] MEDS: ONDANSETRON INJ 4 MG/2 ML VIAL IV PUSH (23:02)
[2025-03-12] MEDS: SODIUM CHLORIDE 0.9% IV 1,000 ML 999 ML IV CONT (23:02)
[2025-03-12 23:08] LABS: Alanine Aminotransferase 42 U/L (6-35); Albumin Level 3.8 g/dL (3.5-5.1); Alkaline Phosphatase 66 U/L (38-126); Anion Gap 6 mmol/L (4-12); Aspartate Amino Transferase 35 U/L (14-36); Bilirubin,Total 0.5 mg/dL (0.2-1.3); Blood Urea Nitrogen 12 mg/dL (7-17); Calcium 9.2 mg/dL (8.4-10.2); Carbon Dioxide 25 mmol/L (22-30); Chloride 105 mmol/L (98-107); Estimated Glomerular Filt Rate 60; Glucose 86 mg/dL (65-110); Potassium 3.8 mmol/L (3.4-5.0); Sodium 136 mmol/L (137-145); Total Protein 7.3 g/dL (6.3-8.2)
[2025-03-12 23:19] LABS: Beta HCG Quantitative 504.66 mIU/ML
[2025-03-13 00:15] LABS: Add Urine Microscopic? NO; Appearance Urine Clear (Clear); Glucose Urine UA Negative (Negative); Leukocyte Esterase Ur Negative LEU/UL (Negative); Nitrate Urine Negative (Negative); Specific Grav Ur 1.010 (1.001-1.035)
[2025-03-13 00:16] LABS: Non Pathogenic Casts 0-2
[2025-03-13 00:19] LABS: Need Manual Microscopic Reviewed
[2025-03-13] MEDS: CEPHALEXIN 500 MG CAPSULE PO (01:37)
[2025-03-13 01:40] VITALS: BP 123/59; PULSE 81; RESP 18; O2SAT 99
== END 2025-03-13 01:41 | disposition home or self-care (01) ==
PROVIDERS: Emergency Provider Registered Nurse
DX: O20.0 Threatened abortion (principal); O23.41 Unspecified infection of urinary tract in pregnancy, first trimester; N39.0 Urinary tract infection, site not specified; Z3A.00 Weeks of gestation of pregnancy not specified
CPT/HCPCS: 36415; 80053; 81003; 84702; 85025; 87086; 96361; 96374; 99284; A9270; J2405; J7030

== ENCOUNTER 2025-03-14 19:28 | Day surgery (SDC) | payer OTHER, SELFPAY ==
--- NOTE | ~2025-03-14 | US_ITS ---
EXAMINATION: US OB transvaginal DATE: 03/14/2025 22:15 INDICATION: Pelvic pain and vaginal bleeding during early first trimester of TECHNIQUE: Real-time pelvic ultrasound utilizing both a transvaginal and transabdominal probe was performed. The interpreting radiologist was not present for the study. COMPARISON: None. FINDINGS: The uterus measures 8.4 x 4.3 x 4.6 cm. Endometrial complex measures 11 mm in thickness. No evident intrauterine gestational sac. The right ovary measures 3.2 x 2.6 x 2.3 cm. The left ovary measures 2.5 x 1.4 x 1.7 cm. There is a small amount of complex free fluid in the pelvis which appears more anechoic in the cul-de-sac and is more hypoechoic lung the anterior and right sides of the uterus. IMPRESSION: 1. No evident intrauterine gestational sac which could be due to early , failed or ectopic . 2. Small amount of complex free fluid in the pelvis suspicious for hemoperitoneum. Dr. Oscar was notified of this and the absence of a definitive intrauterine raising concern for possible ectopic at 10:58 PM (-0:500) on 03/14/[address] Solomon. Reviewed, dictated and finalized at location A. IMPRESSION: 1. No evident intrauterine gestational sac which could be due to early pregnanc y, failed or ectopic . 2. Small amount of complex free fluid in the pelvis suspicious for hemoperitone um. Dr. Oscar was notified of this and the absence of a definitive intrau terine raising concern for possible ectopic at 10:58 PM (-0 :500) on 03/14/[address] Solomon.
[2025-03-14 19:48] VITALS: BP 125/77; PULSE 92; RESP 15; TEMP 36.3; O2SAT 100
[2025-03-14 21:40] LABS: Beta HCG Quantitative 569.54 mIU/ML
--- NOTE | 2025-03-14 21:43 | ED.PREGNANCY ---
HPI - General Chief complaint: Vaginal Bleeding <PHYLLIS Hayes Last Filed: 03/15/25 01:24> Stated complaint: vaginal bleeding, + preg test 5 days ago <PHYLLIS Hayes Last Filed: 03/15/25 01:24> Time Seen by Provider: 03/14/25 19:59 <PHYLLIS Hayes Last Filed: 03/15/25 01:24> Source: patient <PHYLLIS Hayes Last Filed: 03/15/25 01:24> Mode of arrival: ambulatory <PHYLLIS Hayes Last Filed: 03/15/25 01:24> Limitations: no limitations <PHYLLIS Hayes Last Filed: 03/15/25 01:24> History of Present Illness HPI Narrative: Patient is a 29-year-old female who presents to the ED with report of vaginal bleeding. Patient reports she was told she was on 03/10. Had very early . . Ultrasound at that time did not show any intra-uterine findings or evidence of ectopic. Patient returned to the ED on 03/12 and was told her beta-hCG levels were increasing, but not as much as to be expected. Patient did not have insurance to be able to follow-up with an OBGYN. She developed very light vaginal bleeding today and prompted here for re-evaluation. She reports slight discomfort throughout her lower abdomen. <PHYLLIS Hayes Last Filed: 03/15/25 01:24> Related Data Allergies/Adverse reactions: Allergies Allergy/AdvReac Type Severity Reaction Status Date / Time No Known Allergies Allergy Verified 03/12/25 21:04 <PHYLLIS Hayes Last Filed: 03/15/25 01:24> Review of Systems Review of Systems: All systems reviewed & are unremarkable except as noted in HPI. 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 HEAD: Normocephalic, atraumatic. RESPIRATORY: Airway patent, respirations nonlabored. Clear to auscultation bilaterally, no rales, rhonchi, wheezing. CARDIOVASCULAR: Regular rate and rhythm without murmurs, rubs, or gallops. ABDOMINAL: Soft, minimal tenderness throughout lower abdomen, nondistended. Normoactive BS. MUSCULOSKELETAL: Moves all extremities. No gross deformities. SKIN: Warm, dry, normal color. NEURO: A&O X3. Speech clear. PSYCHIATRIC: Appropriate mood and affect. Normal interaction. <Latha Oscar PA-C - Last Filed: 03/15/25 01:24> Course HEALTH EDUCATION ASSISTANT/PA Physician Supervision PA discussed the findings for this patient. I am aware they had conversations with [address] Cho did elect to take patient to the OR and came down to the ED to evaluate patient. Patient has otherwise remained hemodynamically stable. I was available for consultation while patient was in the ed but did not personally examine them. <Arlyn Kaufman MD - Last Filed: 03/16/25 14:55> Vital Signs Vital signs: Vital Signs Temperature 97.4 F L 03/14/25 19:48 Pulse Rate 92 03/14/25 19:48 Respiratory Rate 15 03/14/25 19:48 Blood Pressure 125/77 03/14/25 19:48 Pulse Oximetry 100 03/14/25 19:48 Oxygen Delivery Room Air 03/14/25 19:48 Temperature 97.3 F L 03/15/25 02:44 Pulse Rate 75 03/15/25 04:19 Respiratory Rate 16 03/15/25 04:19 Blood Pressure 113/57 L 03/15/25 04:19 Pulse Oximetry 100 03/15/25 04:19 Oxygen Delivery Room Air 03/15/25 04:19 Oxygen Flow Rate 8 03/15/25 02:55 <Latha Oscar PA-C - Last Filed: 03/15/25 01:24> Vital Signs Temperature 97.4 F L 03/14/25 19:48 Pulse Rate 92 03/14/25 19:48 Respiratory Rate 15 03/14/25 19:48 Blood Pressure 125/77 03/14/25 19:48 Pulse Oximetry 100 03/14/25 19:48 Oxygen Delivery Room Air 03/14/25 19:48 Temperature 97.3 F L 03/15/25 02:44 Pulse Rate 75 03/15/25 04:19 Respiratory Rate 16 03/15/25 04:19 Blood Pressure 113/57 L 03/15/25 04:19 Pulse Oximetry 100 03/15/25 04:19 Oxygen Delivery Room Air 03/15/25 04:19 Oxygen Flow Rate 8 03/15/25 02:55 <Arlyn Kaufman MD - Last Filed: 03/16/25 14:55> MDM - OB/Uterine Contractions MDM Narrative Medical decision making narrative: Patient presented to ED with vaginal bleeding, mild lower abdominal discomfort, currently very early gestation. Has been seen in our ED several times for this thus far. . Vital signs are stable. Patient in no acute distress. Beta hCG today is 569.54. This is increasing from 504 on 03/12, but not by much. Ob ultrasound was repeated today -showing findings concerning for possible ruptured ectopic with complex pelvic ascites likely representing hemorrhagic peritoneal fluid. H&H stable from recent laboratory testing this week. Blood type is B+, no indication for rhogam. Discussed case with Dr. Cho OBGYN reclamation furnace operator, who advised it is her understanding that the patient should be assigned to the OBGYN provider that was on-call when her was established on 03/10. Records reviewed. Patient was referred to Dr. Melendez at that time. Discussed case with Dr. De Jesus, OBGYN on-call for Dr. Melendez, initially had agreed to admit patient for observation and repeat labs in the morning, however upon learning that Dr. Melendez was not directly spoken to on 03/10, advised this should not declare patient to Dr. Melendez's service and should be deferred to walk in OBGYN. Discussed this with Dr. Cho. She discussed case with Dr. De Jesus herself. Patient will be admitted under Dr. Cho's service. Recommended repeat H&H and beta hcg at 5am. Dr. Cho called back -will take patient to the OR tonight. Patient is in agreement with plan and need for surgery. She has remained stable throughout ED stay. Dr. Cho in the ED to see patient. <Latha Oscar PA-C - Last Filed: 03/15/25 01:24> Medical Records Attestation: I reviewed the patient's medical records. <Latha Oscar PA-C - Last Filed: 03/15/25 01:24> Lab Data Attestation: I reviewed the patient's lab results. <Latha Oscar PA-C - Last Filed: 03/15/25 01:24> Result diagrams: 03/14/25 21:05 03/14/25 21:05 <Latha Oscar PA-C - Last Filed: 03/15/25 01:24> Labs: Lab Results 03/14/25 03/14/25 Range/Units 21:05 23:40 WBC 6.5 (4.5-10.0) K/mm3 RBC 4.78 (4.2-5.4) M/mm3 Hgb 15.0 (12.0-15.0) g/dL Hct 43.0 (37.0-47.0) % MCV 90.0 (80-100) fl MCH 31.4 (26-34) pg MCHC 34.9 (32-36) g/dl RDW 12.6 (11.5-14.5) % Plt Count 324 (150-375) k/mm3 MPV 9.2 (7.4-10.4) fl Immature Gran % (Auto) 0.3 (0-0.5) % Neut % (Auto) 62.7 (45.5-73.1) % Lymph % (Auto) 24.5 (18.3-44.2) % [place] % (Auto) 9.5 H (2.6-8.5) % Eos % (Auto) 2.5 (0-4.4) % Baso % (Auto) 0.5 (0.2-1.2) % Lymph # (Auto) 1.59 (0.9-3.2) K/mm3 [place] # (Auto) 0.6 (0.1-0.6) K/mm3 Eos # (Auto) 0.2 (0-0.3) K/mm3 Baso # (Auto) 0.0 (0.0-0.1) K/mm3 Abs Immat Gran (auto) 0.02 (0.00-0.031) K/mm3 Absolute Neuts (auto) 4.1 (1.3-6.7) K/mm3 Absolute Nucleated RBC 0.000 (0.0-0.012) K/mm3 Nucleated RBC % 0.0 (0.0-0.2) % PT 14.5 (11.1-14.7) Seconds INR 1.1 APTT 29.9 (22.3-36.8) Seconds Sodium 136 L (137-145) mmol/L Potassium 4.0 (3.4-5.0) mmol/L Chloride 101 (98-107) mmol/L Carbon Dioxide 26 (22-30) mmol/L Anion Gap 9 (4-12) mmol/L BUN 10 (7-17) mg/dL Creatinine 0.69 L (0.7-1.0) mg/dL Estim Creat Clear Calc 150 ml/min Estimated GFR > 60 (59 - ) Glucose 78 (65-110) mg/dL Calcium 9.7 (8.4-10.2) mg/dL Total Bilirubin 0.4 (0.2-1.3) mg/dL AST 37 H (14-36) U/L ALT 49 H (6-35) U/L Alkaline Phosphatase 76 (38-126) U/L Total Protein 7.5 (6.3-8.2) g/dL Albumin 4.1 (3.5-5.1) g/dL Beta HCG, Quant 569.54 mIU/ML Blood Type B Positive Antibody Screen Negative Screen Not Reportable Baby's Blood Type Not Reportable Baby's JENNIFER Not Reportable Doses of RhIg Required 0 <Latha Oscar PA-C - Last Filed: 03/15/25 01:24> Lab Results 03/14/25 03/14/25 Range/Units 21:05 23:40 WBC 6.5 (4.5-10.0) K/mm3 RBC 4.78 (4.2-5.4) M/mm3 Hgb 15.0 (12.0-15.0) g/dL Hct 43.0 (37.0-47.0) % MCV 90.0 (80-100) fl MCH 31.4 (26-34) pg MCHC 34.9 (32-36) g/dl RDW 12.6 (11.5-14.5) % Plt Count 324 (150-375) k/mm3 MPV 9.2 (7.4-10.4) fl Immature Gran % (Auto) 0.3 (0-0.5) % Neut % (Auto) 62.7 (45.5-73.1) % Lymph % (Auto) 24.5 (18.3-44.2) % [place] % (Auto) 9.5 H (2.6-8.5) % Eos % (Auto) 2.5 (0-4.4) % Baso % (Auto) 0.5 (0.2-1.2) % Lymph # (Auto) 1.59 (0.9-3.2) K/mm3 [place] # (Auto) 0.6 (0.1-0.6) K/mm3 Eos # (Auto) 0.2 (0-0.3) K/mm3 Baso # (Auto) 0.0 (0.0-0.1) K/mm3 Abs Immat Gran (auto) 0.02 (0.00-0.031) K/mm3 Absolute Neuts (auto) 4.1 (1.3-6.7) K/mm3 Absolute Nucleated RBC 0.000 (0.0-0.012) K/mm3 Nucleated RBC % 0.0 (0.0-0.2) % PT 14.5 (11.1-14.7) Seconds INR 1.1 APTT 29.9 (22.3-36.8) Seconds Sodium 136 L (137-145) mmol/L Potassium 4.0 (3.4-5.0) mmol/L Chloride 101 (98-107) mmol/L Carbon Dioxide 26 (22-30) mmol/L Anion Gap 9 (4-12) mmol/L BUN 10 (7-17) mg/dL Creatinine 0.69 L (0.7-1.0) mg/dL Estim Creat Clear Calc 150 ml/min Estimated GFR > 60 (59 - ) Glucose 78 (65-110) mg/dL Calcium 9.7 (8.4-10.2) mg/dL Total Bilirubin 0.4 (0.2-1.3) mg/dL AST 37 H (14-36) U/L ALT 49 H (6-35) U/L Alkaline Phosphatase 76 (38-126) U/L Total Protein 7.5 (6.3-8.2) g/dL Albumin 4.1 (3.5-5.1) g/dL Beta HCG, Quant 569.54 mIU/ML Blood Type B Positive Antibody Screen Negative Screen Not Reportable Baby's Blood Type Not Reportable Baby's JENNIFER Not Reportable Doses of RhIg Required 0 <Arlyn Kaufman MD - Last Filed: 03/16/25 14:55> Imaging Data Attestation: I personally reviewed and interpreted this imaging study as follows: <Latha Oscar PA-C - Last Filed: 03/15/25 01:24> Radiologist's impression: STAT RAD US OB: Prior 03/10/2025., no gestational sac seen. Complex small pelvic ascites probably represents hemorrhagic peritoneal fluid. In the setting of a positive test, this is concerning for nonvisualized ectopic . Recommend prompt OBGYN consultation and close follow-up. Consider also early viable or failed . <Latha Oscar PA-C - Last Filed: 03/15/25 01:24> Discharge Plan Discharge Clinical Impression: Ectopic Qualifiers: Location of ectopic : unspecified location Intrauterine status: without intrauterine Qualified Code(s): O00.90 - Unspecified ectopic without intrauterine <Latha Oscar PA-C - Last Filed: 03/15/25 01:24> Patient Disposition: Still a Patient <Latha Oscar PA-C - Last Filed: 03/15/25 01:24> Condition: Serious <Latha sOcar PA-C - Last Filed: 03/15/25 01:24>
[2025-03-14 23:21] LABS: Hematocrit 43.0 % (37.0-47.0); Hemoglobin 15.0 g/dL (12.0-15.0); Immature Granulocyte Percent A 0.3 % (0-0.5); Lymphocytes Absolute Auto 1.59 K/mm3 (0.9-3.2); Mean Corpuscular HGB Conc 34.9 g/dl (32-36); Mean Corpuscular Hemoglobin 31.4 pg (26-34); Mean Corpuscular Volume 90.0 fl (80-100); Nucleated Red Blood Cells Absolute Auto 0.000 K/mm3 (0.0-0.012); Nucleated Red Blood Cells Perc 0.0 % (0.0-0.2); Platelet Count Result 324 k/mm3 (150-375); Red Blood Count 4.78 M/mm3 (4.2-5.4); White Blood Count 6.5 K/mm3 (4.5-10.0)
[2025-03-14 23:32] LABS: Alanine Aminotransferase 49 U/L (6-35); Albumin Level 4.1 g/dL (3.5-5.1); Alkaline Phosphatase 76 U/L (38-126); Anion Gap 9 mmol/L (4-12); Aspartate Amino Transferase 37 U/L (14-36); Bilirubin,Total 0.4 mg/dL (0.2-1.3); Blood Urea Nitrogen 10 mg/dL (7-17); Calcium 9.7 mg/dL (8.4-10.2); Carbon Dioxide 26 mmol/L (22-30); Chloride 101 mmol/L (98-107); Estimated CRCL calculation 150 ml/min; Estimated Glomerular Filt Rate > 60; Glucose 78 mg/dL (65-110); Potassium 4.0 mmol/L (3.4-5.0); Sodium 136 mmol/L (137-145); Total Protein 7.5 g/dL (6.3-8.2)
[2025-03-15] VITALS (8 sets, daily range): BP systolic 102–144; BP diastolic 54–81; PULSE 75–99; RESP 15–24; TEMP 36.3; O2SAT 98–100
[2025-03-15] LABS: INR 1.1; Prothrombin Time 14.5 Seconds (11.1-14.7)
[2025-03-15 00:32] LABS: Partial Thromboplastin Time 29.9 Seconds (22.3-36.8)
--- NOTE | 2025-03-15 00:46 | P.HP_ITS ---
History of Present Illness History of Present Illness Consent: Risks, benefits, and alternatives have been discussed and questions answered. Patient agrees to proceed with procedure. Chief complaint: ectopic Narrative: Julieta Reyes is a 29 year old female A4 here at ER with suspected ruptured ectopic . Patient with minimally increasing HCG levels and u/s suspicious for hemoperitoneum without adnexal mass. Patient pain is minimal at rest and feels pressure. No dizziness, SOB, or syncope. Minimal spotting vaginal. Couple was trying for . 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 History of recurrent , currently 3 SAb and 1 elective medical termination (normal spontaneous vaginal delivery) x 2 2021-preeclampsia Healthy female adult Surgical History Surgical History (Updated 03/15/25 @ 00:51 by Laina Cho MD) History of D&C x 1 for twin loss first trimester Meds Home Medications and Allergies Home Medications ?Medication ?Instructions ?Recorded ?Confirmed ?Type amoxicillin 875 mg-potassium 1 tablet PO Q12H #14 tabs 02/10/25 Rx clavulanate 125 mg tablet azithromycin 250 mg tablet See Rx Instructions PO .COM PLEX #6 02/10/25 Rx tabs ondansetron 4 mg disintegrating 4 mg PO Q8H #10 tabs 0 02/10/25 Rx tablet cephalexin 500 mg capsule 500 mg PO Q8H 7 days #21 cap s 03/13/25 Rx Allergies Allergy/AdvReac Type Severity Reaction Status Date / Time No Known Allergies Allergy Verified 03/12/25 21:04 Vital Signs Vital Signs - 24 hr 03/14/25 19:48 03/15/25 00:38 Temperature 97.4 F L Pulse Rate 92 89 Respiratory Rate 15 18 Blood Pressure 125/77 125/73 Pulse Oximetry 100 100 Oxygen Delivery Room Air Exam Const: General: healthy appearing, comfortable, no acute distress and obese Resp: Effort & Inspection: normal respiratory effort GI: Inspection: normal to inspection GI Palp: Yes abdominal tenderness (lower abdomen), No Guarding due to palpation present (GI) and No Rebound tenderness present Assessment and Plan Assessment and plan (1) Ectopic : Code(s): O00.90 - Unspecified ectopic without intrauterine Status: Acute Assessment and Plan: Discussed with couple that finding very suspicious for ruptured ectopic . Discussed options are limited. Recommend surgical management with likely laparoscopic salpingectomy if rupture found. Discussed that if no rupture and no bleeding, then still not a healthy as HCG has not increased significantly. Discussed may need to also do an D&C. Risks of procedures disc ussed including infection, bleeding, and injury to internal organs. Discussed history of drug use and will give a minimal amount of [place] for to manage. May try tylenol and motrin and use the norco sparingly if at all. Patient agrees to proceed.
--- NOTE | 2025-03-15 01:29 | P.PNAN_ITS ---
Anes - Initial Pre Proc Eval Procedure: Operation Date: 03/15/25 01:30 Proposed Procedures p Diagnostic Laparoscopy Pos Lap Lap Bilat Salpingo oophorectomy(Not Applicable) - Laina Cho MD Date/Time: 03/15/25 01:29 Surgeon: Laina Cho MD Pre Op Diagnosis: ectopic Patient Data Age: 29 Gender: F Height: 1.8 m Weight: 125 kg Last Vital Signs Temp 97.4 F L 03/14/25 19:48 Pulse 89 03/15/25 00:38 Resp 18 03/15/25 00:38 BP 125/73 03/15/25 00:38 Pulse Ox 100 03/15/25 00:38 O2 Del Method Room Air 03/14/25 19:48 Allergies Allergy/AdvReac Type Severity Reaction Status Date / Time No Known Allergies Allergy Verified 03/12/25 21:04 Home Medications ?Medication ?Instructions ?Recorded ?Confirmed ?Type amoxicillin 875 mg-potassium 1 tablet PO Q12H #14 tabs 02/10/25 Rx clavulanate 125 mg tablet azithromycin 250 mg tablet See Rx Instructions PO .COM PLEX #6 02/10/25 Rx tabs ondansetron 4 mg disintegrating 4 mg PO Q8H #10 tabs 0 02/10/25 Rx tablet cephalexin 500 mg capsule 500 mg PO Q8H 7 days #21 cap s 03/13/25 Rx Laboratory Tests 03/14/25 03/14/25 21:05 23:40 WBC 6.5 K/mm3 (4.5-10.0) RBC 4.78 M/mm3 (4.2-5.4) Hgb 15.0 g/dL (12.0-15.0) Hct 43.0 % (37.0-47.0) MCV 90.0 fl (80-100) MCH 31.4 pg (26-34) MCHC 34.9 g/dl (32-36) RDW 12.6 % (11.5-14.5) Plt Count 324 k/mm3 (150-375) MPV 9.2 fl (7.4-10.4) Immature Gran % (Auto) 0.3 % (0-0.5) Neut % (Auto) 62.7 % (45.5-73.1) Lymph % (Auto) 24.5 % (18.3-44.2) [place] % (Auto) 9.5 H % (2.6-8.5) Eos % (Auto) 2.5 % (0-4.4) Baso % (Auto) 0.5 % (0.2-1.2) Lymph # (Auto) 1.59 K/mm3 (0.9-3.2) [place] # (Auto) 0.6 K/mm3 (0.1-0.6) Eos # (Auto) 0.2 K/mm3 (0-0.3) Baso # (Auto) 0.0 K/mm3 (0.0-0.1) Abs Immat Gran (auto) 0.02 K/mm3 (0.00-0.031) Absolute Neuts (auto) 4.1 K/mm3 (1.3-6.7) Absolute Nucleated RBC 0.000 K/mm3 (0.0-0.012) Nucleated RBC % 0.0 % (0.0-0.2) PT 14.5 Seconds (11.1-14.7) INR 1.1 APTT 29.9 Seconds (22.3-36.8) Sodium 136 L mmol/L (137-145) Potassium 4.0 mmol/L (3.4-5.0) Chloride 101 mmol/L (98-107) Carbon Dioxide 26 mmol/L (22-30) Anion Gap 9 mmol/L (4-12) BUN 10 mg/dL (7-17) Creatinine 0.69 L mg/dL (0.7-1.0) Estim Creat Clear Calc 150 ml/min Estimated GFR > 60 (59 - ) Glucose 78 mg/dL (65-110) Calcium 9.7 mg/dL (8.4-10.2) Total Bilirubin 0.4 mg/dL (0.2-1.3) AST 37 H U/L (14-36) ALT 49 H U/L (6-35) Alkaline Phosphatase 76 U/L (38-126) Total Protein 7.5 g/dL (6.3-8.2) Albumin 4.1 g/dL (3.5-5.1) Beta HCG, Quant 569.54 mIU/ML Blood Type B Positive Antibody Screen Negative Screen Not Reportable Baby's Blood Type Not Reportable Baby's JENNIFER Not Reportable Doses of RhIg Required 0 Patient hx anesthesia problems: none Family hx anesthesia problems: none Results Review: All pre-operative results and documents have been reviewed as part of the pre- operative evaluation. 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 History of recurrent , currently 3 SAb and 1 elective medical termination (normal spontaneous vaginal delivery) x 2 2021-preeclampsia Healthy female adult Surgical History Surgical History History of D&C x 1 for twin loss first trimester Anes - Eval Final PreProcedure Day of Procedure 03/15/25 01:29 Patient weight: obese Lungs: normal air movement Airway: Mallampati scale class II Neurological: alert and oriented Last oral intake: >/= 8 hours ASA classification: III Emergent: no Anesthetic plan: proceed Anesthesia type and monitoring: general ETT and standard monitoring Results Review: All pre-operative results and documents have been reviewed as part of the pre- operative evaluation. Pre DM, active smoker 5 cigs/day, BMI 38, hx of ROGELIO for 1 year, clean for 10 years. VS and labs stable. Pt can walk 1 mile without cp or sob. Informed Consent: The patient's anesthetic plan and its attendant risks and benefits were discussed with the patient/family/POA. Questions were solicited and answers provided to the satisfaction of the patient/family/POA.
--- NOTE | 2025-03-15 02:14 | S_PTH ---
PATIENT: Julieta Reyes LOC: [facility] U#:[id number] AGE/SX: 29/F ROOM: RE03/15/[address]: Laina Cho MD : 1995 BED: DIS: 03/15/2025 SPEC #: [id number] RECD: 03/15/25 09:00 STATUS: SELAM RETenisha #: [id number] WAYNE: 03/15/25 02:[address]: Laina Cho DEPT: [facility] Surgical RECD BY: Chelsey Stewart ENTERED: 03/15/25 09:01 SP TYPE: Surgical OTHR DR: Hardeep Reyes MD VP OF CUSTOMER EXPERIENCE STRATEGY PHYSICIAN Tissues: A - Fallopian Tube Single Procedures: Gross and Microscopic Level 2 Hematoxylin and Eosin Stain
--- NOTE | 2025-03-15 02:40 | W.PM.PROC2 ---
Procedure Note - Detailed Date of Procedure 03/15/25 Pre-op Diagnosis ectopic Post-op Diagnosis Same (Left ectopic ruptured) Procedure Performed Laparoscopic left salpingectomy Surgeon Laina Cho MD Anesthesia General Findings [id number] blood and the pelvis. Enlarged middle of the left tube with a small rupture site and minimal active bleeding. Bilateral ovaries and uterus appear normal. The lower 3rd of the right tube is edematous. Description of Procedure The patient was taken to the operating room and placed under anesthesia in the dorsal lithotomy position. She was prepped and draped in the usual sterile fashion. Bladder was drained with a red rubber catheter. [place] speculum was placed in the vagina and the cervix grasped on the anterior lip with a tenaculum. The acorn manipulator was placed and the speculum removed. Attention was turned to the abdomen where a vertical skin incision was made at the base of the umbilicus. The abdomen was tented and the Veress needle placed. Water drop test is normal. Opening patient pressure was 9mmHg. Pneumoperitoneum was obtained using CO2 to a patient pressure 17. The Veress needle was then removed and the 5mm trocar placed it was noted to be too short. The long 5mm trocar was placed without difficulty. The abdomen was minimally insulated and took [id number] to insufflate in order to visualize the pelvis. The 5mm trocars were then placed to the left and right of midline 2cm above the symphysis pubis under direct visualization. Using the suction the blood is evacuated and [id number]. The tubes and ovaries are inspected with the above-stated findings. The LigaSure was used to cauterize and cut the mesosalpinx until approximately 2cm of the tube was left. The tube was then crossclamped, cauterized, and cut. The 5mm trocar was switched to an 11mm trocar. The Endo-Catch bag was then placed and the specimen placed within the bag. The specimen was removed with the trocar. The suture cone was then placed in the 11mm port and the fascia closed using the device. The pneumoperitoneum was reduced in all instruments are removed. The skin incisions were closed using 4-0 nylon in interrupted fashion. The vaginal instruments are removed. Sponge, needle, and instrument counts are correct per the OR staff. The patient was awakened from anesthesia and taken to recovery in stable condition. Estimated Blood Loss 100 (Old blood in the pelvis with no active blood loss) Drains No Packing No Pathology Yes (Left tube with ectopic ) Complications No immediate complications Condition Stable Disposition PACU
[2025-03-15] MEDS: LACTATED RINGERS 1,000 ML 30 ML IV CONT ×2 (02:44)
[2025-03-15] MEDS: fentaNYL CITRATE INJ (*CRX) 100 MCG/2 ML VIAL 25 MCG IV PUSH ×4 (03:10→03:20)
[2025-03-15] MEDS: oxyCODONE HCL (*CRX) 5 MG TAB IR PO (03:41)
[2025-03-15] MEDS: ONDANSETRON INJ 4 MG/2 ML VIAL IV PUSH (03:48)
== END 2025-03-15 04:33 | disposition home or self-care (01) ==
LOC: ANHED 20:44 → ANHSURGERY 03-15 00:28
PROVIDERS: Emergency Provider Physician Assistant; Visit Provider Obstetrics & Gynecology Gynecology
PROC: (CPT 49320; principal; 2025-03-15 01:30)
DX: O00.102 Left tubal pregnancy without intrauterine pregnancy (principal); G89.18 Other acute postprocedural pain; Z98.890 Other specified postprocedural states; R73.03 Prediabetes
CPT/HCPCS: 58661; 36415; 76817; 80053; 84702; 85025; 85461; 85610; 85730; 86850; 86900; 86901; 88302; 99285; A9270; J1100; J1171; J1885; J2003; J2250; J2405; J2704; J3010; J7030; J7120

== ENCOUNTER 2025-03-17 09:35 | Emergency (ER) | payer MEDICAID, SELFPAY ==
--- NOTE | ~2025-03-17 | US_ITS ---
Clinical history:4 days post ectopic surgery with increased pain EXAM:Ultrasound pelvis complete TECHNIQUE:Multiple static grayscale images and color Doppler transabdominal images were obtained of the pelvis. Comparisons:Ultrasound OB transvaginal 03/14/25 FINDINGS: Uterus is 9.5 x 4.4 x 5.3 cm. Endometrial stripe measures 4 mm. Right ovary measures 1.9 x 2.5 x 2.1 cm with color Doppler flow. History of a left oophorectomy. IMPRESSION: 1. Left oophorectomy. 2. Otherwise, unremarkable study. If symptoms persist or worsen, consider a short-term follow-up study or additional imaging for further assessment. Reviewed, dictated and finalized at location Q. IMPRESSION: 1. Left oophorectomy. 2. Otherwise, unremarkable study. If symptoms persist or worsen, consider a short-term follow-up study or additio nal imaging for further assessment.
--- NOTE | ~2025-03-17 | CT_ITS ---
EXAMINATION: CTA chest PE abdomen pel DATE: 03/17/2025 10:54 INDICATION: Abdominal pain. TECHNIQUE: Computed tomography angiography (CTA) of the chest was performed with 100 mL Omnipaque-350 intravenous contrast timed to evaluate the pulmonary arteries. Coronal maximum intensity projection 3D-reconstructions were created by the technologist. Computed tomography (CT) of the abdomen and pelvis was performed with intravenous contrast. Automated exposure control and iterative reconstruction technique were employed. The dose-length product was 992.44 mGy-cm. COMPARISON: Chest single view 02/10/2025 FINDINGS: CTA chest: There are scattered nodules and masses in the lungs with involvement of all lobes. The largest mass measures 8.3 x 4.0 mm in right upper lobe. There is mild atelectasis bilaterally. The heart size is normal. No pericardial effusion. There is mild bilateral hilar lymphadenopathy. There is mild bilateral subpectoral lymphadenopathy. The heart size is normal. No pericardial effusion. There is no pulmonary embolus. There is mild thoracic spondylosis. CT abdomen and pelvis: The liver is normal. The gallbladder is distended, likely secondary to fasting. The spleen, pancreas, adrenal glands, and kidneys are normal. There are no dilated loops of bowel. The appendix is normal. There is physiologic fluid in the pelvis. There is free intraperitoneal gas and gas in the body wall, consistent with recent surgery. There is mild left external iliac lymphadenopathy. There is mild lumbar spondylosis. IMPRESSION: 1. No pulmonary embolus. 2. 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 The differential diagnosis includes pneumonia, eosinophilic pneumonia, sarcoid, vasculitis, and organizing pneumonia. 3. Mild chest and pelvic lymphadenopathy, likely reactive. Reviewed, dictated and finalized at location E. IMPRESSION: 1. No pulmonary embolus. 2. 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 The differential diagnosis incl udes pneumonia, eosinophilic pneumonia, sarcoid, vasculitis, and organizing pne umonia. 3. Mild chest and pelvic lymphadenopathy, likely reactive.
[2025-03-17 09:44] VITALS: BP 121/75; PULSE 69; RESP 16; TEMP 36.6; O2SAT 99
[2025-03-17 10:18] LABS: Hematocrit 40.0 % (37.0-47.0); Hemoglobin 13.6 g/dL (12.0-15.0); Immature Granulocyte Percent A 0.2 % (0-0.5); Lymphocytes Absolute Auto 1.52 K/mm3 (0.9-3.2); Mean Corpuscular HGB Conc 34.0 g/dl (32-36); Mean Corpuscular Hemoglobin 31.2 pg (26-34); Mean Corpuscular Volume 91.7 fl (80-100); Nucleated Red Blood Cells Absolute Auto 0.000 K/mm3 (0.0-0.012); Nucleated Red Blood Cells Perc 0.0 % (0.0-0.2); Platelet Count Result 277 k/mm3 (150-375); Red Blood Count 4.36 M/mm3 (4.2-5.4); White Blood Count 8.3 K/mm3 (4.5-10.0)
[2025-03-17 10:28] LABS: Alanine Aminotransferase 40 U/L (6-35); Albumin Level 3.6 g/dL (3.5-5.1); Alkaline Phosphatase 74 U/L (38-126); Anion Gap 5 mmol/L (4-12); Aspartate Amino Transferase 33 U/L (14-36); Bilirubin,Total 0.5 mg/dL (0.2-1.3); Blood Urea Nitrogen 8 mg/dL (7-17); Calcium 9.0 mg/dL (8.4-10.2); Carbon Dioxide 27 mmol/L (22-30); Chloride 105 mmol/L (98-107); Estimated CRCL calculation 165 ml/min; Estimated Glomerular Filt Rate > 60; Glucose 86 mg/dL (65-110); Lipase 49 U/L (23-300); Potassium 3.8 mmol/L (3.4-5.0); Sodium 137 mmol/L (137-145); Total Protein 7.2 g/dL (6.3-8.2)
[2025-03-17 10:30] LABS: INR 1.1; Partial Thromboplastin Time 29.0 Seconds (22.3-36.8); Prothrombin Time 14.5 Seconds (11.1-14.7)
--- NOTE | 2025-03-17 10:32 | ED.GENADULT ---
HPI - General Adult General Chief complaint: Abdominal Pain Stated complaint: post op pain Time Seen by Provider: 03/17/25 09:40 History of Present Illness HPI narrative: Julieta Reyes is a 29-year-old female with no significant past medical history who presents today with complaints of having increasing lower abdominal pelvic pain. She explains that she had surgery here 4 days ago for an ectopic . She states that she had at her ovary and fallopian to removed on the left side. She claims that since she has been home the pain has been increasing to her lower abdomen when she walks she feels like her pelvis is dropping down. She denies any vaginal bleeding denies any urinary symptoms. She states that she has had 1 small bowel movement since surgery she has been eating and drinking okay complains of having nausea but has not had any vomiting. 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 HEAD: Normocephalic, atraumatic. EYES: PERRLA and EOMI. ENT: Nares clear, no rhinorrhea or epistaxis. Mucous membranes moist. Oropharynx without tonsillar hypertrophy exudate or other lesions. NECK: Supple. No adenopathy or masses. No carotid bruits or JVD CHEST: Clear to auscultation. No respiratory distress. No wheezes rales or rhonchi HEART: Regular rate and rhythm. No murmur heard. Normal peripheral pulses. ABDOMEN: Soft nondistended, hypoactive bowel sounds, that are 3 lap sites noted with sutures in place that appear to be healing well no evidence of severe infection cellulitis or drainage. Positive pain generalized to the lower pelvic lower abdominal area. EXTREMITIES: Normal range of motion. No edema. SKIN: Warm, dry, no rash. NEURO: No focal deficits. Alert and oriented x3. PSYCH: Normal mood and affect. Course Vital Signs Vital signs: Vital Signs Temperature 36.6 C 03/17/25 09:44 Pulse Rate 69 03/17/25 09:44 Respiratory Rate 16 03/17/25 09:44 Blood Pressure 121/75 03/17/25 09:44 Pulse Oximetry 99 03/17/25 09:44 Oxygen Delivery Room Air 03/17/25 09:44 Temperature 36.6 C 03/17/25 09:44 Pulse Rate 70 03/17/25 14:10 Respiratory Rate 18 03/17/25 14:10 Blood Pressure 129/83 03/17/25 14:10 Pulse Oximetry 100 03/17/25 14:10 Oxygen Delivery Room Air 03/17/25 09:44 Medical Decision Making MDM Narrative Medical decision making narrative: 29-year-old female who presents with lower pelvic abdominal pain 4 days postop of ectopic surgery that was done here. She states that she had her left ovary and fallopian tube removed. She states that she has been having increasing lower abdominal pelvic pain since being home. She states that she has been eating and drinking okay she has only had 1 small bowel movement since surgery no vomiting no fevers or chills. On exam she is noted to have 3 laparoscopic surgery sites with sutures that appear to be healing well no evidence of infection abdomen is soft hypoactive bowel sounds pain with palpation generalized no vaginal bleeding. concern for: Constipation/ SBO/ surgical complication/ UTI/ Plan to check labs, CT abd/pelv, and Pelvic US CBC-no leukocytosis, hemodynamically stable, CMP ALT is 40 otherwise unremarkable, lipase is negative urine is unremarkable Pelvic ultrasound- 1. Left oophorectomy. 2. Otherwise, unremarkable study. CT scan IMPRESSION: 1. No pulmonary embolus. 2. 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 The differential diagnosis includes pneumonia, eosinophilic pneumonia, sarcoid, vasculitis, and organizing pneumonia. 3. Mild chest and pelvic lymphadenopathy, likely reactive. A multifocal in imaging is stable from February 10 patient is not having a cough or shortness of breath regarding this. The rest of her workup is quite normal patient is feeling better she was quite concerned of having a complication from the surgery which does not appear to be going on at this time. She was comfortable with going home will start her on some stool softeners to help her have bowel movement he has ear since she has only had 1 small 1 since surgery with follow-up with her surgeon as scheduled and return precautions discussed. Patient denies anything further at this time Medical Records Medical records reviewed: Yes I reviewed the external patient's medical records. Vital Signs Vital Signs: Vital Signs Temperature 36.6 C 03/17/25 09:44 Pulse Rate 69 03/17/25 09:44 Respiratory Rate 16 03/17/25 09:44 Blood Pressure 121/75 03/17/25 09:44 Pulse Oximetry 99 03/17/25 09:44 Oxygen Delivery Room Air 03/17/25 09:44 Temperature 36.6 C 03/17/25 09:44 Pulse Rate 70 03/17/25 14:10 Respiratory Rate 18 03/17/25 14:10 Blood Pressure 129/83 03/17/25 14:10 Pulse Oximetry 100 03/17/25 14:10 Oxygen Delivery Room Air 03/17/25 09:44 Vitals reviewed Lab Data Lab results reviewed: Yes I reviewed the patient's lab results. 03/17/25 10:10 03/17/25 10:10 Labs: Lab Results 03/17/25 03/17/25 03/17/25 Range/Units 10:10 11:31 11:36 WBC 8.3 (4.5-10.0) K/mm3 RBC 4.36 (4.2-5.4) M/mm3 Hgb 13.6 (12.0-15.0) g/dL Hct 40.0 (37.0-47.0) % MCV 91.7 (80-100) fl MCH 31.2 (26-34) pg MCHC 34.0 (32-36) g/dl RDW 12.8 (11.5-14.5) % Plt Count 277 (150-375) k/mm3 MPV 8.8 (7.4-10.4) fl Immature Gran % (Auto) 0.2 (0-0.5) % Neut % (Auto) 70.2 (45.5-73.1) % Lymph % (Auto) 18.3 (18.3-44.2) % [place] % (Auto) 8.2 (2.6-8.5) % Eos % (Auto) 2.7 (0-4.4) % Baso % (Auto) 0.4 (0.2-1.2) % Lymph # (Auto) 1.52 (0.9-3.2) K/mm3 [place] # (Auto) 0.7 H (0.1-0.6) K/mm3 Eos # (Auto) 0.2 (0-0.3) K/mm3 Baso # (Auto) 0.0 (0.0-0.1) K/mm3 Abs Immat Gran (auto) 0.02 (0.00-0.031) K/mm3 Absolute Neuts (auto) 5.8 (1.3-6.7) K/mm3 Absolute Nucleated RBC 0.000 (0.0-0.012) K/mm3 Nucleated RBC % 0.0 (0.0-0.2) % PT 14.5 (11.1-14.7) Seconds INR 1.1 APTT 29.0 (22.3-36.8) Seconds Sodium 137 (137-145) mmol/L Potassium 3.8 (3.4-5.0) mmol/L Chloride 105 (98-107) mmol/L Carbon Dioxide 27 (22-30) mmol/L Anion Gap 5 (4-12) mmol/L BUN 8 (7-17) mg/dL Creatinine 0.65 L (0.7-1.0) mg/dL Estim Creat Clear Calc 165 ml/min Estimated GFR > 60 (59 - ) Glucose 86 (65-110) mg/dL Calcium 9.0 (8.4-10.2) mg/dL Total Bilirubin 0.5 (0.2-1.3) mg/dL AST 33 (14-36) U/L ALT 40 H (6-35) U/L Alkaline Phosphatase 74 (38-126) U/L Total Protein 7.2 (6.3-8.2) g/dL Albumin 3.6 (3.5-5.1) g/dL Lipase 49 (23-300) U/L Urine Color Yellow (Yellow) Urine Appearance Clear (Clear) Urine pH 7.0 (5.0-9.0) Ur Specific [place] > 1.045 H (1.001-1.035) Urine Protein Trace (Negative) mg/dL Urine Glucose (UA) Negative (Negative) mg/dL Urine Ketones Negative (Negative) mg/dL Ur Blood (Man) Negative (Negative) Urine Nitrate Negative (Negative) Urine Bilirubin Negative (Negative) Urine Urobilinogen 0.2 (<2.0) mg/dL Leukocyte Esterase Rfl Negative (Negative) MICHELE/UL Urine RBC 0-2 (0-2) /hpf Urine WBC 0-5 (0-3) /hpf Ur Squamous Epith Cells None seen (Few) /hpf Urine Bacteria None seen /hpf Urine Casts 0-2 POC Urine HCG, Qual Negative (Negative) Imaging Data Radiologist's impression: Impressions Chest/Abdomen/Pelvis CTA 03/17/25 11:05 IMPRESSION: 1. No pulmonary embolus. 2. 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 The differential diagnosis includes pneumonia, eosinophilic pneumonia, sarcoid, vasculitis, and organizing pneumonia. 3. Mild chest and pelvic lymphadenopathy, likely reactive. Pelvis Ultrasound 03/17/25 11:49 IMPRESSION: 1. Left oophorectomy. 2. Otherwise, unremarkable study. If symptoms persist or worsen, consider a short-term follow-up study or additional imaging for further assessment. Discharge Plan Discharge Clinical Impression: Abdominal gas pain Constipation Qualifiers: Constipation type: other constipation type Qualified Code(s): K59.09 - Other constipation Patient Disposition: Home Condition: Stable Instructions: Antibiotic Form, Constipation (ED) Additional Instructions: Continue to take the Colace twice daily to help the constipation you may also continue to take Tylenol Motrin for your pain make sure drinking plenty of fluids and getting exercise help with the gas pain. He should continue to improve and feel better if he develops any new worsening symptoms or vomiting or fevers as always return to the emergency department. Patient Language: Bengali Prescriptions: New docusate sodium [Colace] 100 mg capsule 100 mg PO BID Qty: 30 0RF No Action ibuprofen 600 mg tablet 600 mg PO Q6H PRN (Reason: pain) Qty: 30 0RF hydrocodone-acetaminophen 5-325 mg tablet 1 tablet PO Q4H PRN (Reason: pain) Qty: 20 0RF azithromycin 250 mg tablet See Rx Instructions .ROUTE .COMPLEX Qty: 6 0RF Rx Instructions: For 250 mg dose pack: take 500 mg today (day 1), then 250 mg for 4 days (days 2-5) amoxicillin-pot clavulanate 875-125 mg tablet 1 tablet PO Q12H Qty: 14 0RF ondansetron 4 mg tablet,disintegrating 4 mg PO Q8H Qty: 10 0RF Follow-up/Referrals: PHYSICIAN,[facility] INSTRUMENT REPAIRER [Primary Care Provider, Internal Medicine] Time of Disposition: 13:41
[2025-03-17 11:38] LABS: BEDSIDEPREGUCG Negative (Negative)
[2025-03-17 11:43] LABS: Add Urine Microscopic? YES; Appearance Urine Clear (Clear); Glucose Urine UA Negative (Negative); Leukocyte Esterase Ur Negative LEU/UL (Negative); Nitrate Urine Negative (Negative); Non Pathogenic Casts 0-2; Specific Grav Ur > 1.045 (1.001-1.035)
[2025-03-17 14:10] VITALS: BP 129/83; PULSE 70; RESP 18; O2SAT 100
== END 2025-03-17 14:15 | disposition home or self-care (01) ==
PROVIDERS: Emergency Medicine; Emergency Provider Nurse Practitioner Family
DX: R14.1 Gas pain (principal); K59.09 Other constipation; Z90.721 Acquired absence of ovaries, unilateral; J98.4 Other disorders of lung
CPT/HCPCS: 36415; 71275; 74177; 76856; 80053; 81001; 81025; 83690; 85025; 85610; 85730; 99284; Q9967

== ENCOUNTER 2025-03-21 19:10 | Emergency (ER) | payer OTHER, SELFPAY ==
[2025-03-21 19:46] VITALS: BP 144/86; PULSE 73; RESP 18; TEMP 36.3; O2SAT 98
[2025-03-21 21:30] VITALS: BP 139/74; PULSE 69; RESP 18; TEMP 36.2; O2SAT 100
--- NOTE | 2025-03-21 21:43 | PC.NURSE ---
2143-AFTER ASSISTING PATIENT WITH RESTROOM FACILITY AND NECESSARY ITEMS FOR PERSONAL HYGIENE, PATIENT STATES SHE WANTS TO LEAVE AND FOLLOW UP WITH OB WHO PERFORMED THE SURGERY TOMORROW. ENCOURAGED PATIENT TO CONTINUE TO WAIT BUT PATIENT DECLINED. PATIENT STATES SHE WILL RETURN IF HER SYMPTOMS WORSEN.
== END 2025-03-21 22:09 | disposition left against medical advice (07) ==
LOC: ANHED 21:51
DX: N93.9 Abnormal uterine and vaginal bleeding, unspecified (principal)
CPT/HCPCS: 99199

== ENCOUNTER 2025-04-26 01:41 | Emergency (ER) | payer OTHER, SELFPAY ==
--- NOTE | ~2025-04-26 | CT_ITS ---
EXAMINATION: CTA chest PE abdomen pel DATE: 04/26/2025 06:45 INDICATION: Shortness of breath. Abdominal pain. TECHNIQUE: Computed tomography angiography (CTA) of the chest was performed with 100 mL Omnipaque-350 intravenous contrast timed to evaluate the pulmonary arteries. Coronal maximum intensity projection 3D-reconstructions were created by the technologist. Computed tomography (CT) of the abdomen and pelvis was performed with intravenous contrast. Automated exposure control and iterative reconstruction technique were employed. The dose-length product was 2404.64 mGy-cm. COMPARISON: CT 03/17/2025 FINDINGS: CTA chest: There are stable scattered nodules and masses involving all lobes. The largest mass measures 9.0 x 5.2 cm in right upper lobe. No pleural effusion. The heart size is normal. No pericardial effusion. There is mediastinal and bilateral hilar lymphadenopathy. There is no pulmonary embolus. The aorta is normal. There is mild chronic anterior wedging of multiple thoracic vertebral bodies. There is mild thoracic spondylosis. CT abdomen and pelvis: The liver, gallbladder, spleen, pancreas, adrenal glands, and kidneys are normal. There are no dilated loops of bowel. The appendix is normal. There is no free intraperitoneal fluid. There is mild bilateral external iliac and left common iliac lymphadenopathy. There is mild lumbar spondylosis. There is mild chronic anterior wedging of L1 vertebral body. IMPRESSION: 1. No pulmonary embolus. 2. Stable multifocal lung disease. The differential diagnosis includes pneumonia, eosinophilic pneumonia, sarcoid, vasculitis, and organizing pneumonia. 3. Mild chest and pelvic lymphadenopathy, likely reactive. Reviewed, dictated and finalized at location E. ETOLOGY EDUCATOR IMPRESSION: 1. No pulmonary embolus. 2. Stable multifocal lung disease. The differential diagnosis includes pneumoni a, eosinophilic pneumonia, sarcoid, vasculitis, and organizing pneumonia. 3. Mild chest and pelvic lymphadenopathy, likely reactive.
[2025-04-26 01:45] VITALS: BP 147/97; PULSE 87; RESP 20; TEMP 36.3; O2SAT 99
[2025-04-26 02:25] LABS: BEDSIDEPREGUCG Negative (Negative)
[2025-04-26 04:18] LABS: Hematocrit 40.7 % (37.0-47.0); Hemoglobin 13.9 g/dL (12.0-15.0); Immature Granulocyte Percent A 0.3 % (0-0.5); Lymphocytes Absolute Auto 1.36 K/mm3 (0.9-3.2); Mean Corpuscular HGB Conc 34.2 g/dl (32-36); Mean Corpuscular Hemoglobin 31.0 pg (26-34); Mean Corpuscular Volume 90.6 fl (80-100); Nucleated Red Blood Cells Absolute Auto 0.000 K/mm3 (0.0-0.012); Nucleated Red Blood Cells Perc 0.0 % (0.0-0.2); Platelet Count Result 308 k/mm3 (150-375); Red Blood Count 4.49 M/mm3 (4.2-5.4); White Blood Count 6.8 K/mm3 (4.5-10.0)
[2025-04-26 04:37] LABS: Alanine Aminotransferase 42 U/L (6-35); Albumin Level 3.9 g/dL (3.5-5.1); Alkaline Phosphatase 82 U/L (38-126); Anion Gap 3 mmol/L (4-12); Aspartate Amino Transferase 37 U/L (14-36); Bilirubin,Total 0.4 mg/dL (0.2-1.3); Blood Urea Nitrogen 7 mg/dL (7-17); Calcium 9.1 mg/dL (8.4-10.2); Carbon Dioxide 30 mmol/L (22-30); Chloride 106 mmol/L (98-107); Estimated CRCL calculation 160 ml/min; Estimated Glomerular Filt Rate > 60; Glucose 87 mg/dL (65-110); Lipase 426 U/L (23-300); Potassium 4.1 mmol/L (3.4-5.0); Sodium 139 mmol/L (137-145); Total Protein 7.8 g/dL (6.3-8.2)
--- NOTE | 2025-04-26 05:09 | ED_ITS ---
HPI - General Adult General Chief complaint: Abdominal Pain Stated complaint: Nausea, bloated, lower abd pain Time Seen by Provider: 04/26/25 03:49 History of Present Illness HPI narrative: This is a 29-year-old female presenting for multiple complaints. Patient had a salpingectomy performed on March 13. After that she developed some abdominal pain cough and difficulty breathing. She was seen on March 17 at our facility and discharged. However since then she has continued to have symptoms. Patient notes that she has had a productive cough with green sputum for the last 3 weeks. Associated a sharp chest pain. She denies fevers chills. She feels short of breath. She does not any lower extremity edema. She is also complaining sharp pain in her abdomen. It is across the lower part of her abdomen. It comes and goes. She has had normal bowel habits. No nausea and vomiting. She has followed up Dr. Cho was told she was cleared from surgery but is still having abdominal pain. Patient is also having a migraine. She says she has a headache behind her eyes that is associated with light sensitivity. This is her typical migraine. 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 EYES: EOMI, NOSE: Atraumatic NECK: Trachea midline RESPIRATORY: No increased rate of breathing clear to auscultation, cough on deep inspiration CARDIOVASCULAR: RRR, no peripheral edema ABDOMINAL: Non-distended soft nontender no guarding rebound MUSCULOSKELETAl: No obvious deformities NEURO: Alert. Moving 4/4 extremities SKIN:: Warm, dry. Normal color PSYCHIATRIC: Normal affect Course Vital Signs Vital signs: Vital Signs Temperature 97.4 F L 04/26/25 01:45 Pulse Rate 87 04/26/25 01:45 Respiratory Rate 20 04/26/25 01:45 Blood Pressure 147/97 H 04/26/25 01:45 Pulse Oximetry 99 04/26/25 01:45 Oxygen Delivery Room Air 04/26/25 01:45 Temperature 97.4 F L 04/26/25 01:45 Pulse Rate 87 04/26/25 01:45 Respiratory Rate 20 04/26/25 01:45 Blood Pressure 147/97 H 04/26/25 01:45 Pulse Oximetry 99 04/26/25 01:45 Oxygen Delivery Room Air 04/26/25 01:45 Medical Decision Making MDM Narrative Medical decision making narrative: -Course: 29-year-old female presenting multiple complaints. She has a typical migraine. She has been given a migraine cocktail. Her neurologic exam is normal. She has cough for 3 weeks. Review of previous ER visit on 10 HR that she had had some patchy opacities in her lungs although at that time she did not have any respiratory complaints. We will repeat the imaging to see if those have continued to grow as that may be the cause of her cough. CT redemonstrated the patchy opacities in the lungs. Differential including pneumonia, pneumonitis, sarcoid or scarring pneumonia. Patient will be treated with a course of antibiotics to see if that improves her symptoms. She is on referred to a primary care physician and may need pulmonology referral if her symptoms do not improve. She has continued to have abdominal pain. She has a benign abdominal exam. CT abdomen pelvis was unremarkable. Unclear cause of her pain. Instructed her to follow up with Dr. Cho for further management. Patient was updated on the results. She is comfortable taking it antibiotics for possible pneumonia following up with her primary care physician. Given return precautions for any new or worsening symptoms. -DDX includes but is not limited to: Bronchitis, pneumonia, PE, migraine,, tension headache stress reaction, constipation, viral syndrome Vital Signs Vital Signs: Vital Signs Temperature 97.4 F L 04/26/25 01:45 Pulse Rate 87 04/26/25 01:45 Respiratory Rate 20 04/26/25 01:45 Blood Pressure 147/97 H 04/26/25 01:45 Pulse Oximetry 99 04/26/25 01:45 Oxygen Delivery Room Air 04/26/25 01:45 Temperature 97.4 F L 04/26/25 01:45 Pulse Rate 87 04/26/25 01:45 Respiratory Rate 20 04/26/25 01:45 Blood Pressure 147/97 H 04/26/25 01:45 Pulse Oximetry 99 04/26/25 01:45 Oxygen Delivery Room Air 04/26/25 01:45 Lab Data 04/26/25 04:08 04/26/25 04:08 Labs: Lab Results 04/26/25 04/26/25 Range/Units 02:23 04:08 WBC 6.8 (4.5-10.0) K/mm3 RBC 4.49 (4.2-5.4) M/mm3 Hgb 13.9 (12.0-15.0) g/dL Hct 40.7 (37.0-47.0) % MCV 90.6 (80-100) fl MCH 31.0 (26-34) pg MCHC 34.2 (32-36) g/dl RDW 12.2 (11.5-14.5) % Plt Count 308 (150-375) k/mm3 MPV 8.6 (7.4-10.4) fl Immature Gran % (Auto) 0.3 (0-0.5) % Neut % (Auto) 63.6 (45.5-73.1) % Lymph % (Auto) 20.1 (18.3-44.2) % [place] % (Auto) 11.8 H (2.6-8.5) % Eos % (Auto) 3.3 (0-4.4) % Baso % (Auto) 0.9 (0.2-1.2) % Lymph # (Auto) 1.36 (0.9-3.2) K/mm3 [place] # (Auto) 0.8 H (0.1-0.6) K/mm3 Eos # (Auto) 0.2 (0-0.3) K/mm3 Baso # (Auto) 0.1 (0.0-0.1) K/mm3 Abs Immat Gran (auto) 0.02 (0.00-0.031) K/mm3 Absolute Neuts (auto) 4.3 (1.3-6.7) K/mm3 Absolute Nucleated RBC 0.000 (0.0-0.012) K/mm3 Nucleated RBC % 0.0 (0.0-0.2) % Sodium 139 (137-145) mmol/L Potassium 4.1 (3.4-5.0) mmol/L Chloride 106 (98-107) mmol/L Carbon Dioxide 30 (22-30) mmol/L Anion Gap 3 L (4-12) mmol/L BUN 7 (7-17) mg/dL Creatinine 0.65 L (0.7-1.0) mg/dL Estim Creat Clear Calc 160 ml/min Estimated GFR > 60 (59 - ) Glucose 87 (65-110) mg/dL Calcium 9.1 (8.4-10.2) mg/dL Total Bilirubin 0.4 (0.2-1.3) mg/dL AST 37 H (14-36) U/L ALT 42 H (6-35) U/L Alkaline Phosphatase 82 (38-126) U/L Total Protein 7.8 (6.3-8.2) g/dL Albumin 3.9 (3.5-5.1) g/dL Lipase 426 H (23-300) U/L POC Urine HCG, Qual Negative (Negative) Discharge Plan Discharge Clinical Impression: Cough, Abdominal pain, Migraine Patient Disposition: Home Condition: Stable Instructions: Antibiotic Form, Bacterial Pneumonia (DC) Additional Instructions: You were seen for a cough. Please complete the antibiotics as instructed. If her symptoms do not improve over the next week please follow-up with your primary care physician. If you develop any new or worsening symptoms like fevers shortness of breath or chest pain please return ED for re-evaluation. Patient Language: Cambodian Prescriptions: New amoxicillin-pot clavulanate 875-125 mg tablet 1 tablet PO Q12H Qty: 20 0RF doxycycline hyclate 100 mg capsule 100 mg PO DAILY Qty: 20 0RF No Action ibuprofen 600 mg tablet 600 mg PO Q6H PRN (Reason: pain) Qty: 30 0RF hydrocodone-acetaminophen 5-325 mg tablet 1 tablet PO Q4H PRN (Reason: pain) Qty: 20 0RF azithromycin 250 mg tablet See Rx Instructions .ROUTE .COMPLEX Qty: 6 0RF Rx Instructions: For 250 mg dose pack: take 500 mg today (day 1), then 250 mg for 4 days (days 2-5) amoxicillin-pot clavulanate 875-125 mg tablet 1 tablet PO Q12H Qty: 14 0RF ondansetron 4 mg tablet,disintegrating 4 mg PO Q8H Qty: 10 0RF docusate sodium [Colace] 100 mg capsule 100 mg PO BID Qty: 30 0RF Follow-up/Referrals: PHYSICIAN,STRUCTURAL ARCHITECT [Primary Care Provider, Internal Medicine] Shay Webber MD [Physician, Family Practice] - 1 Week
[2025-04-26] MEDS: PROCHLORPERAZINE EDISYLATE 10 MG/2 ML VIAL IM (06:26)
[2025-04-26] MEDS: KETOROLAC 15 MG/ML VIAL (*BKC) IV PUSH (06:30)
[2025-04-26 06:33] LABS: Influenza A QL RT-PCR Negative (Negative); Influenza B QL RT-PCR Negative (Negative); RSV RNA, RT-PCR Negative (Negative); SARS-CoV-2 RNA PCR Negative (Negative)
[2025-04-26 06:34] VITALS: BP 143/91; PULSE 81; RESP 17; O2SAT 98
== END 2025-04-26 07:20 | disposition home or self-care (01) ==
PROVIDERS: Emergency Provider Emergency Medicine
DX: R05.9 Cough, unspecified (principal); G43.909 Migraine, unspecified, not intractable, without status migrainosus; R10.30 Lower abdominal pain, unspecified; Z90.79 Acquired absence of other genital organ(s)
CPT/HCPCS: 36415; 71275; 74177; 80053; 81025; 83690; 85025; 87637; 96372; 96374; 96375; 99284; J0780; J1200; J1885; Q9967

== ENCOUNTER 2025-05-02 17:46 | Inpatient (IN) | payer OTHER, SELFPAY ==
[2025-05-02] VITALS (7 sets, daily range): BP systolic 119–136; BP diastolic 81–88; PULSE 73–98; RESP 16–20; TEMP 36.4; O2SAT 98–100; BMI 38.8
--- NOTE | ~2025-05-02 | US_ITS ---
LIMITED ABDOMINAL ULTRASOUND INDICATION: Transaminitis COMPARISON: None. FINDINGS: Liver: Visualized portions of the liver are normal. There is normal directional flow in the portal vein. Common bile duct: Normal in size. Gallbladder: The gallbladder wall is normal in thickness. No stones or sludge were seen. Fritz's sign: Negative Pancreas: The imaged portions appear normal. Right kidney: Right kidney appears normal on the images provided. IMPRESSION: No evidence for acute cholecystitis or cholelithiasis. No biliary ductal dilatation is noted. Reviewed, dictated and finalized at location B. RACTS SPECIALIST
--- NOTE | ~2025-05-02 | XR_ITS ---
EXAMINATION: XR chest 2V, 05/02/2025 18:51 PALLIATIVE CARE NURSE HISTORY: cough COMPARISON: 04/26/2025. Technique: 2 views obtained. Findings: There are bilateral lung masses identified the largest in the right lower lobe 4 x 5 cm. No pneumothorax. Heart is normal size. Mediastinal and hilar contours are within normal limits. Bony thorax no acute abnormality. Impression: Bilateral metastasis . Findings appear relatively unchanged compared to the previous CT 04/26/2025. Reviewed, dictated and finalized at location P. IATIVE CARE NURSE Impression: Bilateral metastasis . Findings appear relatively unchanged compared to the pre vious CT 04/26/2025.
--- NOTE | ~2025-05-02 | XR_ITS ---
EXAMINATION: XR fl bronchoscopy w imaging DATE: 05/04/2025 15:01 INDICATION: Lung mass TECHNIQUE: 6 fluoroscopic images of the right chest were obtained procedure performed by Dr. Harper. Radiologist was not present for the imaging or procedure. The amount of fluoroscopy time used during this procedure was 3.7 minutes. The dose area product was 1.87 mGym^2. COMPARISON: Chest radiograph dated 05/02/2025 FINDINGS: Images demonstrate bronchoscope projecting over the right lower lung zone. The masslike opacity right mid and lower lung seen on the prior chest radiograph are less clearly delineated on the fluoroscopic images. No evident pneumothorax. IMPRESSION: 1. Fluoroscopy utilized during bronchoscopy with reported transbronchial biopsies. See procedure note for further detail. Reviewed, dictated and finalized at location A. DEVELOPER IMPRESSION: 1. Fluoroscopy utilized during bronchoscopy with reported transbronchial biopsi es. See procedure note for further detail.
--- NOTE | ~2025-05-02 | XR_ITS ---
EXAMINATION: XR chest 1V portable DATE: 05/04/2025 15:26 INDICATION: Post bronchoscopy. TECHNIQUE: A single frontal view of the chest was obtained. COMPARISON: Chest x-ray dated 05/02/2025. FINDINGS: Heart size is unchanged. Large soft tissue masses of the mid and lower right lung and smaller masses of the left lung similar to the prior study. Outline of the pulmonary masses are ill-defined, possibly secondary to transbronchial biopsy. No evidence of pneumothorax. IMPRESSION: 1. Pulmonary masses as described above. No evidence of pneumothorax. Reviewed, dictated and finalized at location T. MA CENTER NURSE
--- NOTE | ~2025-05-02 | MR_ITS ---
EXAMINATION: MR brain/brain stem wo/w con DATE: 05/04/2025 12:24 INDICATION: Multiple pulmonary lesions suspicious for metastatic disease. TECHNIQUE: Magnetic resonance imaging (MRI) of the brain and brainstem was performed without and with 20 mL Multihance intravenous contrast. Sequences included sagittal and axial T1-weighted SE, axial diffusion-weighted FS SE, axial 3D SWAN, axial T2-weighted FLAIR, and axial T2-weighted FSE. Postcontrast axial, sagittal and coronal T1-weighted SE was obtained. Apparent diffusion coefficient (ADC) maps were created. COMPARISON: None. FINDINGS: There are no areas of restricted diffusion to suggest acute infarction. No intracranial hemorrhage or abnormal intracranial mass lesion. There are no intraparenchymal signal abnormalities seen on the other pulse sequences. The ventricles are symmetric and normal in size. There are no abnormal extra-axial fluid collections. Flow voids are seen in the cerebral arteries on the T2- weighted sequences consistent with their expected patency. Mild mucosal thickening throughout the paranasal sinuses with mucous retention cyst in the left sphenoid sinus. Visualized orbits and soft tissues are unremarkable. There are no areas of abnormal enhancement on the post contrast images. IMPRESSION: 1. Normal brain with no acute intrarenal process or abnormally enhancing brain lesions. Reviewed, dictated and finalized at location A. [employer]
--- NOTE | 2025-05-02 18:47 | ED.URI ---
HPI - URI/Sore Throat General Chief Complaint: Upper Respiratory Infection Stated Complaint: PNA Time Seen by Provider: 05/02/25 18:40 Source: patient Mode of arrival: ambulatory Limitations: no limitations History of Present Illness HPI Narrative: Coughing, nasal and postnasal discharge, sneezing, getting worse over the last 2 and have weeks. Patient's son had similar symptoms earlier. Patient is a smoker and have history of asthma currently not on any medication Six days ago came patient came to our emergency room and had CT scan of the chest abdomen and pelvis which showed stable multifocal lung disease. Mild chest and pelvic lymphadenopathy, likely reactive. Patient was discharged on Augmentin for 10 days and doxycycline for 10 days.. Patient's symptoms are worsening. Related Data Allergies Allergy/AdvReac Type Severity Reaction Status Date / Time No Known Allergies Allergy Verified 05/02/25 22:21 Review of Systems Review of Systems: All systems reviewed & are unremarkable except as noted in HPI and below PMFSH Past Medical History Medical History (Updated 05/03/25 @ 10:48 by Sidney Real MD) Vitiligo Obesity (BMI 30-39.9) History of methamphetamine abuse In remission for 10 years History of recurrent , currently 3 SAb and 1 elective medical termination (normal spontaneous vaginal delivery) x 2 2021-preeclampsia Surgical History Surgical History History of left salpingectomy (03/15/25) Due to ectopic History of D&C x 1 for twin loss first trimester Family History Family History (Updated 05/03/25 @ 03:04 by Heather Harper DO) Mother Diabetes mellitus COPD (chronic obstructive pulmonary disease) Grandparent Carcinoma of colon Father Unknown family medical history Social History Social History (Updated 05/03/25 @ 03:09 by Heather Harper DO) Social History: The patient and her have been since 2021. They have 2 children ages 3 and 6 years old. They have been residing in a long stay motel on and off for the last 6 months. They recently evicted from the hotel and have been living in their friend's car for the last week. The patient has smoked as much as 1.5 packs of cigarettes per day and started smoking at the age of 13. She has cut back to 0.5 packs of cigarettes per day since 2022. She has a distant history of methamphetamine use but stopped approximately 2014. She occasionally uses marijuana. She rarely drinks alcohol. She works part-time at a convenience store. Code status: Full code Surrogate decision maker: Darin () Smoking packs per day: 0.5 Smoking cigarettes per day: 10.0 Years smoked: 16 Smoking pack-years: 8.00 Smoking status: Heavy tobacco smoker Tobacco type: cigarettes Second hand tobacco smoke exposure: Yes Additional smoking assessment comments: not interested in smoking cessation Alcohol intake: current Alcohol use details: Rare Substance use: former Substance use type: marijuana and methamphetamine Other substance usage details: She has not used methamphetamine since proximally 2014. Lack of Transportation: YES Lack of Food: Often True Current Housing: I Do Not Have Housing Concerned About Future Housing: YES Difficulty Paying Gas/Electric Bills: YES Difficulty Paying for Meds: YES Currently Unemployed: No Education: High School Diploma/GED Difficulty w/ Childcare or Family Care: YES Spiritual care concerns: No Exam Narrative: General appearance: Well-developed, well-nourished Skin: Normal color Head: Normocephalic, nontraumatic Eyes: Clear conjunctiva ENT: Oropharynx normal, ears normal, nose normal Neck: Supple, nontender Chest and respiratory: Airway patent, no respiratory distress, no accessory muscle use Heart: Regular rate/rhythm Abdomen: Soft, nontender, no organomegaly, quiet bowel sounds Vascular: Normal peripheral pulses, normal capillary refill. Musculoskeletal: Normal range of motion, nontender back Neurologic: Alert and oriented ?3, REHAB/PRE VOCATIONAL COUNSELOR is normal as tested, no gross motor deficit Course Consultations Consultation #1: DR REAL ADMIT TO HOSPITALIST Date: 05/02/25 Vital Signs Vital signs: Vital Signs Temperature 36.4 C 05/02/25 17:53 Pulse Rate 86 05/02/25 17:53 Respiratory Rate 18 05/02/25 17:53 Blood Pressure 119/81 05/02/25 17:53 Pulse Oximetry 99 05/02/25 17:53 Oxygen Delivery Room Air 05/02/25 17:53 Temperature 36.6 C 05/03/25 16:00 Pulse Rate 83 05/03/25 16:00 Respiratory Rate 16 05/03/25 16:00 Blood Pressure 128/76 05/03/25 16:00 Pulse Oximetry 100 05/03/25 16:00 Oxygen Delivery Room Air 05/03/25 13:49 MDM - URI/Sore Throat MDM Narrative Medical decision making narrative: Upper respiratory symptom with coughing for the last 2 and have weeks Vital signs are stable Differential diagnosis include upper respiratory viral infection with secondary bacterial infection, bronchitis, pneumonia Patient tested negative for COVID flu RSV Chest x-ray showed abnormality consistent with possible pneumonia, sarcoidosis, metastasis Patient failed outpatient treatment for possible pneumonia Patient started on cefepime, vanco and Levaquin, consult Dr. Real Admit to hospitalist for further evaluation Differential Diagnosis Differential diagnosis: Likely other (As above) Medical Records Attestation: I reviewed the patient's medical records. Lab Data Attestation: I reviewed the patient's lab results. 05/03/25 05:29 05/03/25 05:29 Labs: Lab Results 05/02/25 05/02/25 05/02/25 Range/Units 19:03 19:38 21:29 WBC 6.1 (4.5-10.0) K/mm3 RBC 4.62 (4.2-5.4) M/mm3 Hgb 14.3 (12.0-15.0) g/dL Hct 40.9 (37.0-47.0) % MCV 88.5 (80-100) fl MCH 31.0 (26-34) pg MCHC 35.0 (32-36) g/dl RDW 12.3 (11.5-14.5) % Plt Count 326 (150-375) k/mm3 MPV 8.7 (7.4-10.4) fl Immature Gran % (Auto) 0.3 (0-0.5) % Neut % (Auto) 64.7 (45.5-73.1) % Lymph % (Auto) 23.0 (18.3-44.2) % [place] % (Auto) 9.3 H (2.6-8.5) % Eos % (Auto) 2.0 (0-4.4) % Baso % (Auto) 0.7 (0.2-1.2) % Lymph # (Auto) 1.41 (0.9-3.2) K/mm3 [place] # (Auto) 0.6 (0.1-0.6) K/mm3 Eos # (Auto) 0.1 (0-0.3) K/mm3 Baso # (Auto) 0.0 (0.0-0.1) K/mm3 Abs Immat Gran (auto) 0.02 (0.00-0.031) K/mm3 Absolute Neuts (auto) 4.0 (1.3-6.7) K/mm3 Absolute Nucleated RBC 0.000 (0.0-0.012) K/mm3 Nucleated RBC % 0.0 (0.0-0.2) % ESR 51 H (0-20) mm/hr PT (11.1-14.7) Seconds INR APTT (22.3-36.8) Seconds Sodium 137 (137-145) mmol/L Potassium 3.4 (3.4-5.0) mmol/L Chloride 105 (98-107) mmol/L Carbon Dioxide 24 (22-30) mmol/L Anion Gap 8 (4-12) mmol/L BUN 6 L (7-17) mg/dL Creatinine 0.63 L (0.7-1.0) mg/dL Estim Creat Clear Calc 164 ml/min Estimated GFR > 60 (59 - ) Glucose 105 (65-110) mg/dL Lactic Acid 0.8 (0.7-2.0) mmol/L Calcium 9.5 (8.4-10.2) mg/dL Total Bilirubin 0.6 (0.2-1.3) mg/dL AST 38 H (14-36) U/L ALT 42 H (6-35) U/L Alkaline Phosphatase 97 (38-126) U/L Total Creatine Kinase (30-135) U/L C-Reactive Protein 2.5 H (<1.0) mg/dL NT-Pro-B Natriuret Pep (19.9-100) pg/mL Total Protein 8.6 H (6.3-8.2) g/dL Albumin 4.3 (3.5-5.1) g/dL Lipase 55 (23-300) U/L Aldolase Procalcitonin ng/mL A. niger Allergen IgE [place] Serum IgG Ab Nasal MRSA (PCR) Not detected (NOT DETECTE) Rheumatoid Factor (<12) IU/ML Rheumatoid Factor Scrn Rheumatoid Factor Titer CCP IgG/IgA Ab NEELA Screen NEELA Titer NEELA Titer 2 NEELA Titer 3 NEELA Pattern NEELA Pattern 2 NEELA Pattern 3 NEELA Comment Myeloperoxidase Ab FILEMON-1 Antibody EJ Antibody Ku Antibody OJ Antibody Mi-2 Antibody NXP-[address] PL-[address]-12 Antibody MDA5 Ab Myositis SAE1 Ab Myositis TIF1-gamma Ab SS-A/Ro 52 kDa Ab A-PM Scleroderma 100 Ab Anti-U1-INFORMATICS EDUCATOR Ab U2-nRNP Antibody U3-INFORMATICS EDUCATOR (Fibrillarin) Ab Anti-SRP Antibody CMV IgG Ab CMV IgM Ab EBV Capsid Ag IgG Ab EBV Capsid Ag IgM Ab EBV Nuclear Antigen Ab EBV Interpretation Hepatitis A IgM Ab (Negative) Hep Bs Antigen (Negative) Hep B Core IgM Ab (Negative) Hepatitis C Ab Screen (Negative) Histoplasma Ab Imm Diff HIV 1&2 Ab/P24 Ag 4thGn Negative (Negative) Influenza A (RT-PCR) Negative (Negative) Influenza B (RT-PCR) Negative (Negative) M.pneumoniae IgM Titer T. sacchari IgG Ab T. vulgaris IgG Ab A. fumigatus IgG Ab A. fumigatus IgE Ab A. pullulans Aller IgG M. faeni IgG Ab RSV (RT-PCR) Negative (Negative) SARS-CoV-2 RNA (RT-PCR) Negative (Negative) 05/03/25 05/03/25 05/03/25 Range/Units 05:28 05:29 05:29 WBC 6.2 (4.5-10.0) K/mm3 RBC 4.11 L (4.2-5.4) M/mm3 Hgb 12.7 (12.0-15.0) g/dL Hct 36.9 L (37.0-47.0) % MCV 89.8 (80-100) fl MCH 30.9 (26-34) pg MCHC 34.4 (32-36) g/dl RDW 12.3 (11.5-14.5) % Plt Count 296 (150-375) k/mm3 MPV 8.8 (7.4-10.4) fl Immature Gran % (Auto) 0.5 (0-0.5) % Neut % (Auto) 59.3 (45.5-73.1) % Lymph % (Auto) 22.8 (18.3-44.2) % [place] % (Auto) 13.2 H (2.6-8.5) % Eos % (Auto) 3.6 (0-4.4) % Baso % (Auto) 0.6 (0.2-1.2) % Lymph # (Auto) 1.41 (0.9-3.2) K/mm3 [place] # (Auto) 0.8 H (0.1-0.6) K/mm3 Eos # (Auto) 0.2 (0-0.3) K/mm3 Baso # (Auto) 0.0 (0.0-0.1) K/mm3 Abs Immat Gran (auto) 0.03 (0.00-0.031) K/mm3 Absolute Neuts (auto) 3.7 (1.3-6.7) K/mm3 Absolute Nucleated RBC 0.000 (0.0-0.012) K/mm3 Nucleated RBC % 0.0 (0.0-0.2) % ESR (0-20) mm/hr PT (11.1-14.7) Seconds INR APTT (22.3-36.8) Seconds Sodium 137 (137-145) mmol/L Potassium 3.9 (3.4-5.0) mmol/L Chloride 111 H (98-107) mmol/L Carbon Dioxide 20 L (22-30) mmol/L Anion Gap 6 (4-12) mmol/L BUN 7 (7-17) mg/dL Creatinine 0.64 L (0.7-1.0) mg/dL Estim Creat Clear Calc 161 ml/min Estimated GFR > 60 (59 - ) Glucose 90 (65-110) mg/dL Lactic Acid (0.7-2.0) mmol/L Calcium 8.6 (8.4-10.2) mg/dL Total Bilirubin 0.5 (0.2-1.3) mg/dL AST 31 (14-36) U/L ALT 34 (6-35) U/L Alkaline Phosphatase 68 (38-126) U/L Total Creatine Kinase 54 (30-135) U/L C-Reactive Protein (<1.0) mg/dL NT-Pro-B Natriuret Pep 51 (19.9-100) pg/mL Total Protein 6.9 (6.3-8.2) g/dL Albumin 3.5 (3.5-5.1) g/dL Lipase (23-300) U/L Aldolase Procalcitonin 0.0 ng/mL A. niger Allergen IgE [place] Serum IgG Ab Nasal MRSA (PCR) (NOT DETECTE) Rheumatoid Factor 14.0 (<12) IU/ML Rheumatoid Factor Scrn Cancelled Rheumatoid Factor Titer Cancelled CCP IgG/IgA Ab NEELA Screen Cancelled Pending NEELA Titer Cancelled NEELA Titer 2 Cancelled NEELA Titer 3 Cancelled NEELA Pattern Cancelled NEELA Pattern 2 Cancelled NEELA Pattern 3 Cancelled NEELA Comment Cancelled Myeloperoxidase Ab FILEMON-1 Antibody EJ Antibody Ku Antibody OJ Antibody Mi-2 Antibody NXP-[address]-12 Antibody MDA5 Ab Myositis SAE1 Ab Myositis TIF1-gamma Ab SS-A/Ro 52 kDa Ab A-PM Scleroderma 100 Ab Anti-U1-INFORMATICS EDUCATOR Ab U2-nRNP Antibody U3-INFORMATICS EDUCATOR (Fibrillarin) Ab Anti-SRP Antibody CMV IgG Ab Pending CMV IgM Ab Pending EBV Capsid Ag IgG Ab Pending EBV Capsid Ag IgM Ab Pending EBV Nuclear Antigen Ab Pending EBV Interpretation Pending Hepatitis A IgM Ab Negative (Negative) Hep Bs Antigen Negative (Negative) Hep B Core IgM Ab Negative (Negative) Hepatitis C Ab Screen Negative (Negative) Histoplasma Ab Imm Diff Pending HIV 1&2 Ab/P24 Ag 4thGn (Negative) Influenza A (RT-PCR) (Negative) Influenza B (RT-PCR) (Negative) M.pneumoniae IgM Titer Pending T. sacchari IgG Ab T. vulgaris IgG Ab A. fumigatus IgG Ab Pending A. fumigatus IgE Ab A. pullulans Aller IgG M. faeni IgG Ab RSV (RT-PCR) (Negative) SARS-CoV-2 RNA (RT-PCR) (Negative) 05/03/25 05/03/25 Range/Units 10:27 10:43 WBC (4.5-10.0) K/mm3 RBC (4.2-5.4) M/mm3 Hgb (12.0-15.0) g/dL Hct (37.0-47.0) % MCV (80-100) fl MCH (26-34) pg MCHC (32-36) g/dl RDW (11.5-14.5) % Plt Count (150-375) k/mm3 MPV (7.4-10.4) fl Immature Gran % (Auto) (0-0.5) % Neut % (Auto) (45.5-73.1) % Lymph % (Auto) (18.3-44.2) % [place] % (Auto) (2.6-8.5) % Eos % (Auto) (0-4.4) % Baso % (Auto) (0.2-1.2) % Lymph # (Auto) (0.9-3.2) K/mm3 [place] # (Auto) (0.1-0.6) K/mm3 Eos # (Auto) (0-0.3) K/mm3 Baso # (Auto) (0.0-0.1) K/mm3 Abs Immat Gran (auto) (0.00-0.031) K/mm3 Absolute Neuts (auto) (1.3-6.7) K/mm3 Absolute Nucleated RBC (0.0-0.012) K/mm3 Nucleated RBC % (0.0-0.2) % ESR (0-20) mm/hr PT 16.2 H (11.1-14.7) Seconds INR 1.3 APTT 32.0 (22.3-36.8) Seconds Sodium (137-145) mmol/L Potassium (3.4-5.0) mmol/L Chloride (98-107) mmol/L Carbon Dioxide (22-30) mmol/L Anion Gap (4-12) mmol/L BUN (7-17) mg/dL Creatinine (0.7-1.0) mg/dL Estim Creat Clear Calc ml/min Estimated GFR (59 - ) Glucose (65-110) mg/dL Lactic Acid (0.7-2.0) mmol/L Calcium (8.4-10.2) mg/dL Total Bilirubin (0.2-1.3) mg/dL AST (14-36) U/L ALT (6-35) U/L Alkaline Phosphatase (38-126) U/L Total Creatine Kinase (30-135) U/L C-Reactive Protein (<1.0) mg/dL NT-Pro-B Natriuret Pep (19.9-100) pg/mL Total Protein (6.3-8.2) g/dL Albumin (3.5-5.1) g/dL Lipase (23-300) U/L Aldolase Pending Procalcitonin ng/mL A. niger Allergen IgE Pending [place] Serum IgG Ab Pending Nasal MRSA (PCR) (NOT DETECTE) Rheumatoid Factor (<12) IU/ML Rheumatoid Factor Scrn Rheumatoid Factor Titer CCP IgG/IgA Ab Pending NEELA Screen Pending NEELA Titer NEELA Titer 2 NEELA Titer 3 NEELA Pattern NEELA Pattern 2 NEELA Pattern 3 NEELA Comment Myeloperoxidase Ab Pending FILEMON-1 Antibody Pending EJ Antibody Pending Ku Antibody Pending OJ Antibody Pending Mi-2 Antibody Pending NXP-[address]-12 Antibody Pending MDA5 Ab Pending Myositis SAE1 Ab Pending Myositis TIF1-gamma Ab Pending SS-A/Ro 52 kDa Ab Pending A-PM Scleroderma 100 Ab Pending Anti-U1-INFORMATICS EDUCATOR Ab Pending U2-nRNP Antibody Pending U3-INFORMATICS EDUCATOR (Fibrillarin) Ab Pending Anti-SRP Antibody Pending CMV IgG Ab CMV IgM Ab EBV Capsid Ag IgG Ab EBV Capsid Ag IgM Ab EBV Nuclear Antigen Ab EBV Interpretation Hepatitis A IgM Ab (Negative) Hep Bs Antigen (Negative) Hep B Core IgM Ab (Negative) Hepatitis C Ab Screen (Negative) Histoplasma Ab Imm Diff HIV 1&2 Ab/P24 Ag 4thGn (Negative) Influenza A (RT-PCR) (Negative) Influenza B (RT-PCR) (Negative) M.pneumoniae IgM Titer T. sacchari IgG Ab Pending T. vulgaris IgG Ab Pending A. fumigatus IgG Ab Pending A. fumigatus IgE Ab Pending A. pullulans Aller IgG Pending M. faeni IgG Ab Pending RSV (RT-PCR) (Negative) SARS-CoV-2 RNA (RT-PCR) (Negative) ABG Data ABG results: 05/02/25 19:38 Puncture Site Right radial ABG pH 7.434 ABG pCO2 32.0 L ABG pO2 78.9 L ABG PO2/FiO2 Ratio 3.76 ABG HCO3 21.0 L ABG O2 Saturation 96.1 ABG O2 Content 18.3 ABG Base Excess -2.3 A-a Gradient 32.5 Oxyhemoglobin 91.3 Total Hemoglobin 14.2 O2 Delivery Device Room air O2 Liters/Min Not Reportable FiO2 21 Imaging Data Radiologist's impression: Impressions Chest X-Ray 05/02/25 19:00 Impression: Bilateral metastasis . Findings appear relatively unchanged compared to the previous CT 04/26/2025. Critical Care Time Critical Care Time Critical Care Time: No Discharge Plan Discharge Clinical Impression: Atypical pneumonia Patient Disposition: Still a Patient Condition: Stable
[2025-05-02] MEDS: IBUPROFEN 400 MG TABLET 800 MG PO (19:01)
[2025-05-02] MEDS: ACETAMINOPHEN 500 MG TABLET 1000 MG PO (19:01)
[2025-05-02 19:44] LABS: Influenza A QL RT-PCR Negative (Negative); Influenza B QL RT-PCR Negative (Negative); RSV RNA, RT-PCR Negative (Negative); SARS-CoV-2 RNA PCR Negative (Negative)
[2025-05-02 19:47] LABS: Hematocrit 40.9 % (37.0-47.0); Hemoglobin 14.3 g/dL (12.0-15.0); Immature Granulocyte Percent A 0.3 % (0-0.5); Lymphocytes Absolute Auto 1.41 K/mm3 (0.9-3.2); Mean Corpuscular HGB Conc 35.0 g/dl (32-36); Mean Corpuscular Hemoglobin 31.0 pg (26-34); Mean Corpuscular Volume 88.5 fl (80-100); Nucleated Red Blood Cells Absolute Auto 0.000 K/mm3 (0.0-0.012); Nucleated Red Blood Cells Perc 0.0 % (0.0-0.2); Platelet Count Result 326 k/mm3 (150-375); Red Blood Count 4.62 M/mm3 (4.2-5.4); White Blood Count 6.1 K/mm3 (4.5-10.0)
[2025-05-02 19:50] LABS: Alveolar/Arterial O2 Gradient 32.5 mmHg; Fractional Inspired Oxygen 21 %; HCO3 ABG 21.0 mEq/l (22.0-26.0); Oxygen Content ABG 18.3 %vol (16.0-22.0); Oxygen Saturation ABG 96.1 % (95.0-100.0); PCO2 ABG 32.0 mmHg (35.0-45.0); PO2 ABG 78.9 mmHg (80.0-100.0); PO2 FiO2 Ratio Arterial Blood 3.76 %
[2025-05-02 19:52] LABS: Modified Allen's Test Pass; Site Drawn RIGHT RADIAL
[2025-05-02 20:02] LABS: Alanine Aminotransferase 42 U/L (6-35); Albumin Level 4.3 g/dL (3.5-5.1); Alkaline Phosphatase 97 U/L (38-126); Anion Gap 8 mmol/L (4-12); Aspartate Amino Transferase 38 U/L (14-36); Bilirubin,Total 0.6 mg/dL (0.2-1.3); Blood Urea Nitrogen 6 mg/dL (7-17); CRP 2.5 mg/dL (<1.0); Calcium 9.5 mg/dL (8.4-10.2); Carbon Dioxide 24 mmol/L (22-30); Chloride 105 mmol/L (98-107); Estimated CRCL calculation 164 ml/min; Estimated Glomerular Filt Rate > 60; Glucose 105 mg/dL (65-110); Lipase 55 U/L (23-300); Potassium 3.4 mmol/L (3.4-5.0); Sodium 137 mmol/L (137-145); Total Protein 8.6 g/dL (6.3-8.2)
[2025-05-02] MEDS: IPRATROPIUM 0.5 MG/ALBUTEROL SULFATE 2.5 MG (BASE) AMPUL.NEB 3 ML INHALATION (20:09)
--- NOTE | 2025-05-02 21:27 | WPCEDHO ---
ED Hand Off Checklist All vitals saved:yes IV Site documented:yes All med administrations documented:yes Triage Note Triage Note Pt arrives with c/o cough, 05/02/25 21:21 congestion x 3 weeks. Pt states that she has been dx with PNA her past 2 visits and thinks that it has to do with the place that they were staying that had black mold. Pt also reports MURPHY. Allergies No Known Allergies Allergy (Verified 05/02/25 18:00) Administered/Completed Medications Discontinued Medications Acetaminophen (Acetaminophen 500 Mg Tablet) 1,000 mg PO ONCE STA Stop: 05/02/25 18:57 Last Admin: 05/02/25 19:01 Dose: 1,000 mg Documented By: LUIS Albuterol/Ipratropium (Ipratropium 0.5 Mg/Albuterol Sulfate 2.5 Mg (Base) Ampul.Neb 3 Ml) 3 ml INHALATION ONCE STA Stop: 05/02/25 19:56 Last Admin: 05/02/25 20:09 Dose: 3 ml Documented By: ALICIA Ibuprofen (Ibuprofen 400 Mg Tablet) 800 mg PO ONCE STA Stop: 05/02/25 18:57 Last Admin: 05/02/25 19:01 Dose: 800 mg Documented By: LUIS Interventions/Assessments IV / Saline Lock, Insert Start: 05/02/25 17:46 Freq: Status: Active Protocol: Document 05/02/25 21:23 SRW (Rec: 05/02/25 21:24 SRW [id number]) IV Assessment Left Antecubital IV Catheter Access Initiated IV Insertion Date 05/02/25 IV Insertion Time 21:24 Catheter Gauge 20 IV Insertion 1 Attempts Ultrasound Used for No Placement IV Site Assessment WNL IV Care and WNL Maintenance PA: HEENT Assessment Start: 05/02/25 17:48 Freq: Status: Active Protocol: Document 05/02/25 18:00 [facility] (Rec: 05/02/25 18:00 [facility] [id number]) Head and Neck Assessment Bilateral Naris/Nares Nasal Symptoms Congestion PA: Respiratory Assessment Start: 05/02/25 17:46 Freq: Status: Active Protocol: Document 05/02/25 18:00 [facility] (Rec: 05/02/25 18:00 [facility] [id number]) Respiratory Assessment Symptoms Congestion,Cough Effort Normal Pattern Regular Depth Normal Chest Expansion Symmetrical Adult Capillary Normal/Less than 2 Seconds Refill Cough Description Loose Cough Frequency Intermittent Oxygen Delivery Oxygen Delivery Room Air Pulse Oximetry (90- 100 100) Last Vital Signs Temperature 97.6 F 05/02/25 17:53 Pulse Rate 98 05/02/25 20:15 Respiratory Rate 20 05/02/25 21:24 Pulse Oximetry 98 05/02/25 21:24 Blood Pressure 119/81 05/02/25 17:53 Blood Pressure Mean 93 05/02/25 17:53 Blood Pressure Position Sitting 05/02/25 17:53 Oxygen Delivery Room Air 05/02/25 18:00 Weight 126.4 kg 05/02/25 21:21 Last Result - Abnormals Only [place] % (Auto) 9.3 % (2.6-8.5) H 05/02/25 19:38 ABG pCO2 32.0 mmHg (35.0-45.0) L 05/02/25 19:38 ABG pO2 78.9 mmHg (80.0-100.0) L 05/02/25 19:38 ABG HCO3 21.0 mEq/l (22.0-26.0) L 05/02/25 19:38 BUN 6 mg/dL (7-17) L 05/02/25 19:38 Creatinine 0.63 mg/dL (0.7-1.0) L 05/02/25 19:38 AST 38 U/L (14-36) H 05/02/25 19:38 ALT 42 U/L (6-35) H 05/02/25 19:38 C-Reactive Protein 2.5 mg/dL (<1.0) H 05/02/25 19:38 Total Protein 8.6 g/dL (6.3-8.2) H 05/02/25 19:38 Most Recent Suicide Severity Rating Suicide Severity Rating NO RISK INDICATED 05/02/25 21:21
--- NOTE | 2025-05-02 21:31 | P.HP_ITS ---
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 The patient reports that she received antibiotics in February for pneumonia. She initially felt better following the 1st course of antibiotics with Augmentin and azithromycin but was still having an occasional cough. She then in March had a ruptured ectopic and underwent surgery. She reported that she recovered okay from surgery but still having occasional bilateral adnexal discomfort. She has been having normal bowel movements and denies any significant nausea or vomiting. But shortly after surgery she began having cough in came back into the ER for evaluation on 04/26/2025. At that time she had a CTA of the chest which demonstrated stable multifocal lung disease with differential including pneumonia, eosinophilic pneumonia, sarcoidosis, vasculitis and organizing pneumonia. She was discharged from the ER on Augmentin and doxycycline. She completed a 7 day course of the antibiotics. Despite completing antibiotics she has continued to have cough and shortness of breath. She reports that her cough is occasional productive of green sputum. She reports that she does have some chest discomfort in her right chest head is sharp and is worse with deep breathing. She reports that the pain is under her right breast. She reports that when the pain occurs it is a 7/10 in intensity. She has been checking her temperature is at home and her T-max is been 99?. She did report significant improvement in her symptoms after she received nebulizer treatments in the ER. She reports she did have a history of ?asthmatic bronchitis? as a child. She is still smoking and has smoked as much as 1.5 packs of cigarettes per day. She reports that for the last week she has been so short of breath that she has only been able to smoke a few cigarettes at a time. She reports that she has had decreased appetite because she feels like she has to work so hard to breathe that she can not take that time to swallow her food. She does report postnasal drip and intermittent hoarseness to her voice. She has also been having some right maxillary pressure and right nasal congestion for the last couple of weeks. She is concerned that the long stay hotel that her and her family were living in until this past week may have been contaminated with black mold. She reported that the motel also had rodents and bugs. In the last week her family has been evicted from the motel in they have been living in a friend's car. She reports that over the last several days both of her children and her have also developed respiratory symptoms. Her came to the ER and was evaluated today as well and did not have evidence of pneumonia on imaging. The patient's COVID flu and RSV PCR were negative in the ER. She did not have any hypoxia and she has not noticed any wheezing. She has not been immunized against flu. She reports that she has become so weak that she feels like she may pass out with minimal exertion and when trying to eat. She has been having some lightheadedness with position changes. Since her onset of symptoms she has had increased stress urinary incontinence. She denies any dysuria but has chronic urinary frequency. Since onset of antibiotic use she has developed a malodorous white vaginal discharge with some vaginal itching. She reports that she was having multiple episodes of loose stools for about 5 days in a row but diarrhea has since resolved. She reports that the loose stool started before she was placed on antibiotics. She does snore and has some symptoms of daytime fatigue. She has never been tested for obstructive sleep apnea. Review of Systems 2 Review of Systems: 12 systems were reviewed with pertinent positives and negatives per HPI. Except as documented in the HPI, all other systems were reviewed and are negative. [facility] Past Medical History Medical History (Updated 05/03/25 @ 03:09 by Heather Harper DO) Vitiligo Obesity (BMI 30-39.9) History of methamphetamine abuse In remission for 10 years History of recurrent , currently 3 SAb and 1 elective medical termination (normal spontaneous vaginal delivery) x 2 2021-preeclampsia Surgical History Surgical History History of left salpingectomy (03/15/25) Due to ectopic History of D&C x 1 for twin loss first trimester Family History Family History (Updated 05/03/25 @ 03:04 by Heather Harper DO) Mother Diabetes mellitus COPD (chronic obstructive pulmonary disease) Grandparent Carcinoma of colon Father Unknown family medical history Social History Social History (Updated 05/03/25 @ 03:09 by Heather Harper DO) Social History: The patient and her have been since 2021. They have 2 children ages 3 and 6 years old. They have been residing in a long stay motel on and off for the last 6 months. They recently evicted from the hotel and have been living in their friend's car for the last week. The patient has smoked as much as 1.5 packs of cigarettes per day and started smoking at the age of 13. She has cut back to 0.5 packs of cigarettes per day since 2022. She has a distant history of methamphetamine use but stopped approximately 2014. She occasionally uses marijuana. She rarely drinks alcohol. She works part-time at a convenience store. Code status: Full code Surrogate decision maker: Darin () Smoking packs per day: 0.5 Smoking cigarettes per day: 10.0 Years smoked: 16 Smoking pack-years: 8.00 Smoking status: Heavy tobacco smoker Tobacco type: cigarettes Second hand tobacco smoke exposure: Yes Additional smoking assessment comments: not interested in smoking cessation Alcohol intake: current Alcohol use details: Rare Substance use: former Substance use type: marijuana and methamphetamine Other substance usage details: She has not used methamphetamine since proximally 2014. Lack of Transportation: YES Lack of Food: Often True Current Housing: I Do Not Have Housing Concerned About Future Housing: YES Difficulty Paying Gas/Electric Bills: YES Difficulty Paying for Meds: YES Currently Unemployed: No Education: High School Diploma/GED Difficulty w/ Childcare or Family Care: YES Spiritual care concerns: No Meds Home Medications and Allergies Home Medications ?Medication ?Instructions ?Recorded ?Confirmed ?Type ibuprofen 600 mg tablet 600 mg PO Q6H PRN pain #30 t abs 03/15/25 05/02/25 Rx Allergies Allergy/AdvReac Type Severity Reaction Status Date / Time No Known Allergies Allergy Verified 05/02/25 22:21 Vital Signs Vital Signs - 24 hr 05/02/25 17:53 05/02/25 18:00 05/02/25 20:10 Temperature 97.6 F Pulse Rate 86 98 Respiratory Rate 18 16 Blood Pressure 119/81 Pulse Oximetry 99 100 Oxygen Delivery Room Air Room Air 05/02/25 20:15 05/02/25 21:24 Temperature Pulse Rate 98 Respiratory Rate 16 20 Blood Pressure Pulse Oximetry 98 Oxygen Delivery Exam 2 Narrative: Weight 126.4 kg BMI 38.9 Const: Other: Mildly ill-appearing, obese, appears stated age HENMT: Other: Mucous membranes are moist, no oral pharyngeal erythema, crowded posterior oropharynx Eyes: Other: Pupils are equal and reactive, no scleral icterus, no conjunctival pallor Neck: Other: No JVD, no lymphadenopathy, large neck circumference Resp: Other: Clear to auscultation bilaterally, no increased work of breathing Cardio: Other: Regular rate, regular rhythm, 2+ bilateral radial pedal pulses, no murmur GI: Other: Soft, nontender, nondistended, normoactive bowel sounds Skin: Other: No jaundice, no pallor, areas of irrigation of melena consistent with vitiligo, multiple tattoos of various quality on the extremities and back Neuro: Other: Alert oriented, speech is clear, no facial asymmetry, no localizing neurologic deficits noted during the course of conversation Extrem: Other: No clubbing, cyanosis or edema Psych: Other: Appropriate mood and affect, pleasant and cooperative, judgment and insight intact H&P: Results Labs Labs: Laboratory Tests 05/02/25 19:38 05/02/25 19:38 05/02/25 05/02/25 05/02/25 19:03 19:38 21:29 WBC 6.1 RBC 4.62 Hgb 14.3 Hct 40.9 MCV 88.5 MCH 31.0 MCHC 35.0 RDW 12.3 Plt Count 326 MPV 8.7 Immature Gran % (Auto) 0.3 Neut % (Auto) 64.7 Lymph % (Auto) 23.0 Moore % (Auto) 9.3 H Eos % (Auto) 2.0 Baso % (Auto) 0.7 Lymph # (Auto) 1.41 Moore # (Auto) 0.6 Eos # (Auto) 0.1 Baso # (Auto) 0.0 Abs Immat Gran (auto) 0.02 Absolute Neuts (auto) 4.0 Absolute Nucleated RBC 0.000 Nucleated RBC % 0.0 ESR 51 H Puncture Site Right radial ABG pH 7.434 ABG pCO2 32.0 L ABG pO2 78.9 L ABG PO2/FiO2 Ratio 3.76 ABG HCO3 21.0 L ABG O2 Saturation 96.1 ABG O2 Content 18.3 ABG Base Excess -2.3 A-a Gradient 32.5 Oxyhemoglobin 91.3 Total Hemoglobin 14.2 O2 Delivery Device Room air O2 Liters/Min Not Reportable FiO2 21 Sodium 137 Potassium 3.4 Chloride 105 Carbon Dioxide 24 Anion Gap 8 BUN 6 L Creatinine 0.63 L Estim Creat Clear Calc 164 Estimated GFR > 60 Glucose 105 Lactic Acid 0.8 Calcium 9.5 Total Bilirubin 0.6 AST 38 H ALT 42 H Alkaline Phosphatase 97 C-Reactive Protein 2.5 H Total Protein 8.6 H Albumin 4.3 Lipase 55 Nasal MRSA (PCR) Pending HIV 1&2 Ab/P24 Ag 4thGn Pending Influenza A (RT-PCR) Negative Influenza B (RT-PCR) Negative RSV (RT-PCR) Negative SARS-CoV-2 RNA (RT-PCR) Negative EXAMINATION: CTA chest PE abdomen pel DATE: 04/26/2025 06:45 INDICATION: Shortness of breath. Abdominal pain. TECHNIQUE: Computed tomography angiography (CTA) of the chest was performed with 100 mL Omnipaque-350 intravenous contrast timed to evaluate the pulmonary arteries. Coronal maximum intensity projection 3D-reconstructions were created by the technologist. Computed tomography (CT) of the abdomen and pelvis was performed with intravenous contrast. Automated exposure control and iterative reconstruction technique were employed. The dose-length product was 2404.64 mGy- cm. COMPARISON: CT 03/17/2025 FINDINGS: CTA chest: There are stable scattered nodules and masses involving all lobes. The largest mass measures 9.0 x 5.2 cm in right upper lobe. No pleural effusion. The heart size is normal. No pericardial effusion. There is mediastinal and bilateral hilar lymphadenopathy. There is no pulmonary embolus. The aorta is normal. There is mild chronic anterior wedging of multiple thoracic vertebral bodies. There is mild thoracic spondylosis. CT abdomen and pelvis: The liver, gallbladder, spleen, pancreas, adrenal glands, and kidneys are normal. There are no dilated loops of bowel. The appendix is normal. There is no free intraperitoneal fluid. There is mild bilateral external iliac and left common iliac lymphadenopathy. There is mild lumbar spondylosis. There is mild chronic anterior wedging of L1 vertebral body. IMPRESSION: 1. No pulmonary embolus. 2. Stable multifocal lung disease. The differential diagnosis includes pneumonia, eosinophilic pneumonia, sarcoid, vasculitis, and organizing pneumonia. 3. Mild chest and pelvic lymphadenopathy, likely reactive. Impressions Chest X-Ray 05/02/25 19:00 Impression: Bilateral metastasis . Findings appear relatively unchanged compared to the previous CT 04/26/2025. ADDENDUM: 05/02/25 192 With reference to the previous CT the lesions detailed in the chest x-ray may reflect an atypical infectious process however underlying neoplasm is not excluded. If there is a previous history of neoplasm metastasis is in the differential. Findings were discussed with the referring clinician, clinically there is no prior history of neoplasm. Bronchoscopy may be of benefit to assess Assessment and Plan Assessment and plan (1) Atypical pneumonia: Code(s): J18.9 - Pneumonia, unspecified organism Status: Acute (2) Transaminitis: Code(s): R74.01 - Elevation of levels of liver transaminase levels Status: Acute (3) Obesity (BMI 30-39.9): Code(s): E66.9 - Obesity, unspecified Status: Acute (4) Snoring: Code(s): R06.83 - Snoring Status: Acute Plan Patient has had persistent abnormal findings of chest x-ray since February. Her opacities on imaging appear to be consistent in the same areas of concentration with just a more dense appearance of the opacities on x-ray compared to imaging in February. CTA of the chest abdomen pelvis was performed on the 26 of April correlates with the chest x-ray findings with differential including pneumonia, sarcoidosis, vasculitis but cannot rule out underlying mass. She did have some chest and pelvic lymphadenopathy that was thought to be reactive. Patient has had persistent normal white count throughout her multiple visits. She has not had any documented fevers. She is not hypoxic. She does have some mild elevation of her CRP and significant elevation of her ESR. The patient has already received full course of treatment with Augmentin and azithromycin in February and Augmentin and doxycycline with a 6 day course starting on the 26 of April. Despite these treatments her symptoms have not improved. Differential includes recurrent or persistent bacterial pneumonia, fungal pneumonia or unspecified pneumonitis. Will send for extended respiratory pathogen panel. Will check urine Legionella and pneumococcal antigen. Will also check EBV CMV HIV and histoplasmosis. If the patient is able to produce a sputum specimen will also check for TB, MAC or fungal causes. Other differentials to include autoimmune process such as sarcoidosis or vasculitis. Will check NEELA screen. Given recurrence of symptoms despite routine treatment for community-acquired pneumonia pulmonology was consulted from the ER. Quality System Manager recommends patient be placed on broader spectrum antibiotic coverage and has been initiated on cefepime, Levaquin and vancomycin. She also received 1 dose of IV Solu-Medrol and nebulizer treatment in the ER. Nebulizer treatments have been continued. She does have some mild but stable transaminitis. She has had intermittent transaminitis on labs at this facility far back as January. She did not have any evidence of hepatic steatosis or cirrhosis on CT of the chest abdomen pelvis performed in April. She denies any heavy alcohol use and her AST to ALT ratio do not fit with ratio consistent with alcohol liver disease. Will check right quadrant ultrasound for further delineation of the liver. Will check hepatitis A, B and C antibody. I am more suspicious of hepatic steatosis given the patient's longstanding obesity. But cannot rule out component of autoimmune process. Acute infectious process causing transaminitis with seemed less likely given persistence of elevation. Patient does have mildly elevated serum total protein in could have mild component of hypovolemia resulting in falls elevation of the transaminases as well. Will give the patient 1 L IV fluid bolus and 1 L of IV fluids at 100 mL an hour and then re-evaluate a.m. labs. Patient is obese and does snore. Will perform ApneaLink monitor to screen for obstructive sleep apnea. MEDICAL DECISION MAKING NARRATIVE -Spoke with the ED provider in detail regarding patient's evaluation, workup and management -Patient seen and examined at bedside -Collaborated with patient's nurse at the bedside in detail and addressed all concerns -Labs, electrolytes, radiology, investigations and test results personally reviewed and interpreted unless otherwise specified -ED/Consult/Nursing/Ancilliary notes on the chart reviewed and appreciated -Spoke with patient at bedside and diagnosis and plan of care was discussed. All questions answered. Quality VTE Prophylaxis VTE prophylaxis: pharmacologic ordered (Lovenox 40 mg subQ daily.) Hospitalist [facility] Advance Care Plan I have confirmed that the patient's Advanced Care Plan is present, code status is documented, or surrogate decision maker is listed in patient medical record.: Yes Medication Reconciliation I have utilized all available resources to obtain, update and review the patients current medications (includes all prescriptions, OTC, herbals, cannabis, and nutritional supplements).: Yes
[2025-05-02] MEDS: VANCOMYCIN 1,250 MG/NS 250 ML 1,250 MG/250 ML BAG 166.67 MG IVPB (21:34)
--- NOTE | 2025-05-02 21:55 | ADMGEN ---
This patient, Julieta Reyes, was admitted to 3 [facility] Surg Room 303-01. Patient/family oriented to hospital policies and general routines including ID bracelet, bed and alarms, visiting hours, pain management, procedures, bathroom and other care routines, personal items, smoking policy, room service/diet, and visiting hours. Information on how to activate the Rapid Response Team has been discussed. Patient/Family are encouraged to report perceived risks to care and to ask questions if they do not understand what they are told or what they should do.
[2025-05-02 22:19] LABS: HIV 1/2 Ab P24 Ag Result Negative (Negative)
[2025-05-02 22:44] LABS: MRSA (PCR) NOT DETECTED (NOT DETECTE)
[2025-05-03] VITALS (12 sets, daily range): BP systolic 102–139; BP diastolic 67–81; PULSE 75–96; RESP 16–20; TEMP 36.3–36.6; O2SAT 97–100
[2025-05-03] MEDS: SODIUM CHLORIDE 0.9% IV 1,000 ML 999 ML IV CONT (00:06)
[2025-05-03] MEDS: VANCOMYCIN 1,250 MG/NS 250 ML 1,250 MG/250 ML BAG 166.67 MG IVPB (00:07)
[2025-05-03] MEDS: SODIUM CHLORIDE 0.9% IV 1,000 ML 100 ML IV CONT (01:26)
[2025-05-03] MEDS: CEFEPIME 2 GM in SODIUM CHLORIDE 0.9% IV 50 ML 100 ML IVPB ×3 (03:04→17:38)
[2025-05-03] MEDS: levoFLOXacin 750 MG/D5W 150 ML 750 MG/150 ML BAG 100 MG IVPB (03:05)
[2025-05-03] MEDS: FLUCONAZOLE 150 MG TABLET PO (03:13)
[2025-05-03] MEDS: ALBUTEROL SULFATE NEB 2.5 MG/3 ML INH INHALATION ×4 (05:23→21:43)
--- NOTE | 2025-05-03 05:29 | PC.NURSE ---
Pt noted to be coughing excessively, Pt complains of being SOB and requested a breathing treatment, respiratory and Dr. Harper notified , one time order given for Albuterol tx at this time.
[2025-05-03 05:55] LABS: Hematocrit 36.9 % (37.0-47.0); Hemoglobin 12.7 g/dL (12.0-15.0); Immature Granulocyte Percent A 0.5 % (0-0.5); Lymphocytes Absolute Auto 1.41 K/mm3 (0.9-3.2); Mean Corpuscular HGB Conc 34.4 g/dl (32-36); Mean Corpuscular Hemoglobin 30.9 pg (26-34); Mean Corpuscular Volume 89.8 fl (80-100); Nucleated Red Blood Cells Absolute Auto 0.000 K/mm3 (0.0-0.012); Nucleated Red Blood Cells Perc 0.0 % (0.0-0.2); Platelet Count Result 296 k/mm3 (150-375); Red Blood Count 4.11 M/mm3 (4.2-5.4); White Blood Count 6.2 K/mm3 (4.5-10.0)
[2025-05-03 06:28] LABS: Alanine Aminotransferase 34 U/L (6-35); Albumin Level 3.5 g/dL (3.5-5.1); Alkaline Phosphatase 68 U/L (38-126); Anion Gap 6 mmol/L (4-12); Aspartate Amino Transferase 31 U/L (14-36); Bilirubin,Total 0.5 mg/dL (0.2-1.3); Blood Urea Nitrogen 7 mg/dL (7-17); Calcium 8.6 mg/dL (8.4-10.2); Carbon Dioxide 20 mmol/L (22-30); Chloride 111 mmol/L (98-107); Estimated CRCL calculation 161 ml/min; Estimated Glomerular Filt Rate > 60; Glucose 90 mg/dL (65-110); Potassium 3.9 mmol/L (3.4-5.0); Sodium 137 mmol/L (137-145); Total Protein 6.9 g/dL (6.3-8.2)
[2025-05-03 08:09] LABS: Hepatitis B Surface Antigen Negative (Negative)
[2025-05-03 08:15] LABS: HAV RESULT Negative (Negative); Hepatitis B Core IgM Result Negative (Negative)
--- NOTE | 2025-05-03 08:19 | P.PNIM_ITS ---
Progress Note: A&P Assessment and Plan (1) Atypical pneumonia: Code(s): J18.9 - Pneumonia, unspecified organism Status: Acute Assessment and Plan: Sarcoidosis, lymphoma, cryptogenic organizing pneumonia, fungal infection and doubt metastatic disease, bacterial infection, Eosinophilic pneumonia, or vasculitis. Failed outpatient antibiotics Pulmonology consulted see Dr. Real's note for details Plan for bronchoscopy tomorrow with BAL and biopsies Holding off on further steroids extended respiratory pathogen panel pending urine Legionella and pneumococcal antigen pending EBV CMV HIV and histoplasmosis pending TB, MAC or fungal causes. Pending cefepime, Levaquin and vancomycin continue for now Guaifenesin Tessalon Perles (2) Migraine: Code(s): G43.909 - Migraine, unspecified, not intractable, without status migrainosus Status: Inactive Assessment and Plan: Patient with complaints of migraines for the last couple months increasing blurry vision Started on Fioricet MRI pending (3) Transaminitis: Code(s): R74.01 - Elevation of levels of liver transaminase levels Status: Acute Assessment and Plan: no evidence of hepatic steatosis or cirrhosis on CT of the chest abdomen pelvis performed in . Will check hepatitis A, B and C antibody negative CMP Liver ultrasound pending (4) Obesity (BMI 30-39.9): Code(s): E66.9 - Obesity, unspecified Status: Acute Assessment and Plan: Will perform ApneaLink monitor to screen for obstructive sleep apnea Time Spent With Patient Time: Patient medications Long discussion with Dr. 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 Pulmonology was consulted recommending bronchoscoped will be done tomorrow, liver ultrasound for later on this afternoon patient may have regular diet afterwards. MRI ordered due to migraines Review of Systems Review of Systems: 12 systems were reviewed with pertinent positives and negatives per HPI. Except as documented in the HPI, all other systems were reviewed and are negative. Exam Narrative: General: well appearing, appears stated age. HEENT: normocephalic, atraumatic. Mucous membranes moist. EOMI, PERRLA, bilateral sclera anicteric, no conjunctival injection. Neck supple without JVD, lymphadenopathy, or bruit. Respiratory: clear bilaterally. No rales/rhonic/wheezes. Continue his coughing Cardiovascular: Regular rate and rhythm, normal S1-S2. No murmurs, rubs, or clicks. PMI is nondisplaced, capillary refill less than 3 second. Abdomen: Soft, round, no pulsatile masses, nondistended and nontender. No rebound, no guarding. Bowel sounds present to all four quadrants. No high pitch or tinkling sounds, resonant to percussion. Extremities: No cyanosis, clubbing, or edema present. Pulses are palpable 2/2. Active ROM to all four extremities. Neuro: Alert and orientated x 4. PERRLA. Cranial nerves 2-12 intact without focal deficit. Skin: Warm, dry, and intact, without rash, erythema, or lesion. Psych: pleasant, cooperative, normal speech, normal affect, no hallucinations, no dysarthia Objective Data Vital Signs Vital Signs: Vital Signs - 24 hr 05/02/25 17:53 05/02/25 18:00 05/02/25 20:10 Temperature 97.6 F Pulse Rate 86 98 Respiratory Rate 18 16 Blood Pressure 119/81 Pulse Oximetry 99 100 Oxygen Delivery Room Air Room Air 05/02/25 20:15 05/02/25 21:24 05/02/25 21:34 Temperature Pulse Rate 98 74 Respiratory Rate 16 20 20 Blood Pressure 136/88 Pulse Oximetry 98 99 Oxygen Delivery 05/02/25 22:00 05/03/25 05:23 05/03/25 05:33 Temperature 97.6 F 97.3 F L Pulse Rate 73 76 75 Respiratory Rate 19 20 17 Blood Pressure 135/85 109/70 Pulse Oximetry 99 99 Oxygen Delivery 05/03/25 07:13 05/03/25 07:13 05/03/25 07:19 Temperature Pulse Rate 78 78 96 Respiratory Rate 20 20 20 Blood Pressure Pulse Oximetry 97 Oxygen Delivery Room Air 05/03/25 08:00 Temperature 97.5 F L Pulse Rate 81 Respiratory Rate 16 Blood Pressure 102/73 Pulse Oximetry 97 Oxygen Delivery Intake/Output Intake/Output: Intake & Output 04/30/25 05/01/25 05/02/25 05/03/25 23:59 23:59 23:59 23:59 Intake Total 100 Output Total 650 Balance -550 Meds/Results Medications: Active Medications Generic Name Dose Route Start Last Admin Trade Name Freq PRN Reason Stop Dose Admin Albuterol 2.5 mg 05/03/25 08:00 05/03/25 07:11 Albuterol Sulfate Neb 2.5 Mg/3 Ml Inh INHALATION 2.5 mg Q6HRT KASEY Administration Calcium Carbonate 200 mg 05/02/25 22:10 Calcium Carbonate (Tums) 500 Mg (200 Mg Elemental) PO Q6H PRN Indigestion Docusate Sodium 100 mg 05/02/25 22:10 Docusate Sodium 100 Mg Capsule PO Q12H PRN Constipation Enoxaparin Sodium 40 mg 05/03/25 09:00 Enoxaparin 40 Mg/0.4 Ml Syringe SUB-Q DAILY KASEY Cefepime HCl 2 gm/ Sodium 50 mls @ 100 mls/hr 05/03/25 11:00 Chloride IVPB Q8H KASEY Vancomycin HCl 1,500 mg in 500 mls @ 250 mls/hr 05/03/25 10:00 Vancomycin 1,500 Mg/Ns 500 Ml IVPB Q12H KASEY Sodium Chloride 1,000 mls @ 100 mls/hr 05/02/25 23:26 05/03/25 01:26 Normal Saline Iv IV CONT 05/03/25 09:25 100 mls/hr .Q10H KASEY Administration Ibuprofen 600 mg 05/02/25 22:10 Ibuprofen 600 Mg Tablet PO Q6H PRN Pain Rated 1-3 Radiology Results: ITS Impressions Chest X-Ray 05/02/25 19:00 Impression: Bilateral metastasis . Findings appear relatively unchanged compared to the previous CT 04/26/2025. ADDENDUM: 05/02/251920 With reference to the previous CT the lesions detailed in the chest x-ray may reflect an atypical infectious process however underlying neoplasm is not excluded. If there is a previous history of neoplasm metastasis is in the differential. Findings were discussed with the referring clinician, clinically there is no prior history of neoplasm. Bronchoscopy may be of benefit to assess Labs Labs: Laboratory Results - last 24 hr 05/02/25 05/02/25 05/02/25 19:03 19:38 21:29 WBC 6.1 RBC 4.62 Hgb 14.3 Hct 40.9 MCV 88.5 MCH 31.0 MCHC 35.0 RDW 12.3 Plt Count 326 MPV 8.7 Immature Gran % (Auto) 0.3 Neut % (Auto) 64.7 Lymph % (Auto) 23.0 [place] % (Auto) 9.3 H Eos % (Auto) 2.0 Baso % (Auto) 0.7 Lymph # (Auto) 1.41 [place] # (Auto) 0.6 Eos # (Auto) 0.1 Baso # (Auto) 0.0 Abs Immat Gran (auto) 0.02 Absolute Neuts (auto) 4.0 Absolute Nucleated RBC 0.000 Nucleated RBC % 0.0 ESR 51 H Puncture Site Right radial ABG pH 7.434 ABG pCO2 32.0 L ABG pO2 78.9 L ABG PO2/FiO2 Ratio 3.76 ABG HCO3 21.0 L ABG O2 Saturation 96.1 ABG O2 Content 18.3 ABG Base Excess -2.3 A-a Gradient 32.5 Oxyhemoglobin 91.3 Total Hemoglobin 14.2 O2 Delivery Device Room air O2 Liters/Min Not Reportable FiO2 21 Sodium 137 Potassium 3.4 Chloride 105 Carbon Dioxide 24 Anion Gap 8 BUN 6 L Creatinine 0.63 L Estim Creat Clear Calc 164 Estimated GFR > 60 Glucose 105 Lactic Acid 0.8 Calcium 9.5 Total Bilirubin 0.6 AST 38 H ALT 42 H Alkaline Phosphatase 97 C-Reactive Protein 2.5 H Total Protein 8.6 H Albumin 4.3 Lipase 55 Nasal MRSA (PCR) Not detected NEELA Screen NEELA Titer NEELA Titer 2 NEELA Titer 3 NEELA Pattern NEELA Pattern 2 NEELA Pattern 3 NEELA Comment Hepatitis A IgM Ab Hep Bs Antigen Hep B Core IgM Ab HIV 1&2 Ab/P24 Ag 4thGn Negative Influenza A (RT-PCR) Negative Influenza B (RT-PCR) Negative RSV (RT-PCR) Negative SARS-CoV-2 RNA (RT-PCR) Negative 05/03/25 05:29 WBC 6.2 RBC 4.11 L Hgb 12.7 Hct 36.9 L MCV 89.8 MCH 30.9 MCHC 34.4 RDW 12.3 Plt Count 296 MPV 8.8 Immature Gran % (Auto) 0.5 Neut % (Auto) 59.3 Lymph % (Auto) 22.8 [place] % (Auto) 13.2 H Eos % (Auto) 3.6 Baso % (Auto) 0.6 Lymph # (Auto) 1.41 [place] # (Auto) 0.8 H Eos # (Auto) 0.2 Baso # (Auto) 0.0 Abs Immat Gran (auto) 0.03 Absolute Neuts (auto) 3.7 Absolute Nucleated RBC 0.000 Nucleated RBC % 0.0 ESR Puncture Site ABG pH ABG pCO2 ABG pO2 ABG PO2/FiO2 Ratio ABG HCO3 ABG O2 Saturation ABG O2 Content ABG Base Excess A-a Gradient Oxyhemoglobin Total Hemoglobin O2 Delivery Device O2 Liters/Min FiO2 Sodium 137 Potassium 3.9 Chloride 111 H Carbon Dioxide 20 L Anion Gap 6 BUN 7 Creatinine 0.64 L Estim Creat Clear Calc 161 Estimated GFR > 60 Glucose 90 Lactic Acid Calcium 8.6 Total Bilirubin 0.5 AST 31 ALT 34 Alkaline Phosphatase 68 C-Reactive Protein Total Protein 6.9 Albumin 3.5 Lipase Nasal MRSA (PCR) NEELA Screen Cancelled NEELA Titer Cancelled NEELA Titer 2 Cancelled NEELA Titer 3 Cancelled NEELA Pattern Cancelled NEELA Pattern 2 Cancelled NEELA Pattern 3 Cancelled NEELA Comment Cancelled Hepatitis A IgM Ab Negative Hep Bs Antigen Negative Hep B Core IgM Ab Negative HIV 1&2 Ab/P24 Ag 4thGn Influenza A (RT-PCR) Influenza B (RT-PCR) RSV (RT-PCR) SARS-CoV-2 RNA (RT-PCR) Quality VTE Prophylaxis VTE prophylaxis: pharmacologic ordered (Lovenox 40 mg subQ daily.) Hospitalist MIPS Advance Care Plan I have confirmed that the patient's Advanced Care Plan is present, code status is documented, or surrogate decision maker is listed in patient medical record.: Yes Medication Reconciliation I have utilized all available resources to obtain, update and review the patients current medications (includes all prescriptions, OTC, herbals, cannabis, and nutritional supplements).: Yes
[2025-05-03 08:42] LABS: NT Pro B Type Natriuretic Pept 51 pg/mL (19.9-100)
[2025-05-03] MEDS: ENOXAPARIN 40 MG/0.4 ML SYRINGE SUB-Q (08:43)
[2025-05-03 09:03] LABS: Procalcitonin 0.0 ng/mL
[2025-05-03] MEDS: VANCOMYCIN 1,500 MG/NS 500 ML 1,500 MG/500 ML BAG 250 MG IVPB ×2 (10:13→22:00)
--- NOTE | 2025-05-03 10:20 | P.CONPL_ITS ---
Assessment and Plan Assessment and plan (1) Lung mass: Code(s): R91.8 - Other nonspecific abnormal finding of lung field Status: Acute Assessment and Plan: female with bilateral large lung masses first seen on chest x-ray 02/10/2025 and on more recent CT scans from 03/17/2025 and 04/26/2025, now the masses in RUL, RLL and LLL with largest 9.0 X 5.2 in RUL and are without vascular or airway distortion within the masses and with some progression since 03/17/2025, mediastinal lymphadenopathy that has progressed since 03/17/2025. She complains of a history of migraines that have all been worsening over the last few months, painful swollen hands that have been worse over the last 6-8 months, blurry vision worse over the last 2 months. HIV negative, MRSA swab negative, COVID, influenza, RSV RT PCR assay negative. Eosinophils 122 per micro L on admission. Etiology: Sarcoidosis, lymphoma, cryptogenic organizing pneumonia, fungal infection and doubt metastatic disease, bacterial infection, Eosinophilic pneumonia, or vasculitis. plan: Will proceed with bronchoscopy with BAL and transbronchial biopsies as soon as can be scheduled. I have discussed with assist coordinator and hopefully this will occur today. Continue vancomycin, cefepime and levofloxacin for now. Will hold off on any systemic steroids until pathology has returned. I will send serologies for autoimmune disease. I will order a NEELA screen that includes 11 different auto antibodies, an ANCA screen, a rheumatoid factor, anti CCP antibody, hypersensitivity pneumonitis panel, a CPK, an aldolase level, and myomarker 3 plus profile. I will send respiratory pathogen panel, urine for Legionella, urine for pneumococcal antigen, urine for Histoplasma, mycoplasma IgM, Aspergillus IgE titers. CMV titers, EBV titers (2) Asthma: Code(s): J45.909 - Unspecified asthma, uncomplicated Status: Acute Assessment and Plan: Regarding patient's history of asthma she was diagnosed to about age 16-17 and was given p.r.n. albuterol. Her triggers include perfumes, change in the season from spring to summer and from fall to winter, she takes p.r.n. albuterol but has not had any physician follow-up and has not taking any albuterol in 2 years. She wheezes when she exerts herself. 05/03/2025: Patient does not feel like she is having an asthma exacerbation. She has no wheezing. Plan: Will continue albuterol nebulizer q.6 hours. History of Present Illness History of Present Illness Consult date: 05/03/25 Chief complaint: Atypical pneumonia, Failed outpatient treatment Narrative: 05/03/2025: This is a new pulmonary consult for lung masses. 29-year-old with a history of asthma, tobacco use, and lung masses. Regarding patient's history of asthma she was diagnosed to about age 16-16 and was given p.r.n. albuterol. Her triggers include perfumes, change in the season from spring to summer and from fall to winter, she takes p.r.n. albuterol but has not had any physician follow-up and has not taking any albuterol in 2 years. She wheezes when she exerts herself. Regarding her tobacco use, the patient smoked 2 packs per day from age [age] for a total of 28 pack years, currently she is smoking half a pack per day. She smoked marijuana daily from age [age] and recently smokes 1 time every 2 weeks. Patient was exposed to secondhand smoke from her mother and currently smoke exposed to secondhand smoke from her . Patient vape tobacco products for 3 months and quit 1 month ago. Patient did methamphetamine 2 to 3 times a week from age [age] and has not done any since then. She denies cocaine, heroin use. 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 Patient denies prior history of cancer, chemotherapy, radiation therapy. No significant family history. Her grandpa has colon cancer he is in his 70s. She denies recurrent sinus disease. She has no new skin rashes, no new swollen or painful joints. She does complain of painful week hands occasionally dropping her phone for the last 6-8 months. She has headaches for 5 years that have been come becoming more frequent. She describes blurry vision for 3 years which is worse over the last 2 months and pain behind both eyes. 01/17/2025: Presented to the emergency room with nausea, vomiting and diarrhea. Room air saturations 100%. Creatinine 0.93, UA was negative for blood or protein. White blood cell count 7.0, eosinophils 5.1%. Diagnosed with acute viral illness and no meds were given. 02/09/2025: Presented to the ER complaining of hot, cold, sweats, nausea, vomiting, diarrhea. Exposed to sick children. She felt bloated. Room air saturations 100%. White blood cell count 8.3, creatinine 0.57, COVID, influenza, RSV RT PCR assay negative. Chest x-ray with rounded masses right lower lobe and right mid lung field. Patient was treated with azithromycin and Augmentin. 03/10/2025 presented with vaginal bleeding and a positive beta hCG. Returned on 03/12 and then 03/14 with vaginal bleeding and of sound to have a ruptured a toxic requiring laparoscopic left fallopian tube and ovary removal. Patient was discharged home. Patient described a minimal dry cough that was nothing out of the ordinary for her and otherwise had no breathing issues on 03/14/2025. 03/17/2025: Patient presented to the emergency depart with abdominal pain, nausea no vomiting. Room air saturations 99%. CT scan chest abdomen and pelvis demonstrated well-circumscribed round consolidative masses in the right upper lobe, 2 distinct lesions in the right lower lobe and 1 in the left lower lobe. White blood cell count 8.3, creatinine 0.65. Patient was told she had pneumonia and if she took antibiotics lesions with go away. She was prescribed azithromycin and Augmentin. She took those and felt no different. On 03/29 the patient noticed the development of rest shortness of breath and dyspnea on exertion. Her dry cough had increased in intermittently she had chest pain. Symptoms progressed on 04/23 she had hot and cold feelings with perspiration temperature was 98.2?, she had worsening dry cough and phlegm 2 to 3 times a day on a good day and 5-10 the on a bad day described as green to yellow or milky white. 04/26/2025 patient presented to the emergency room with continued respiratory complaints, dizziness, lightheaded, dyspnea on exertion across the room. Room air saturations 99%. White blood cell count 6.8, eosinophils 3.3%. Creatinine 0.65. CT scan of the chest compared to 03/17/2025 showed continued pulmonary round consolidative infiltrates right upper lobe, right lower lobe x2 and left lower lobe. The mass is not do not distort pulmonary vasculature or the airways. There was minimal progression from 03/17/2025. There was increased mediastinal adenopathy. Patient was given Augmentin and doxycycline but she could not afford these and did not fill these prescriptions. 05/02/2025: Patient presented to the emergency room with worsening shortness of breath at rest and dyspnea on exertion, cough with green to yellow phlegm, her kids had similar symptoms. Her blood pressure is 119/81, heart rate 86, respirations 18, room air saturations 99%. White blood cell count 6.1, eosinophils 2%, CRP 2.5, creatinine 0.63, HIV negative, MRSA swab negative, COVID influenza RSV RT PCR assay negative. Room air blood gas 7.43/32/79. Patient was treated with Solu-Medrol 125 x 1 dose, vancomycin, cefepime and Levaquin. Patient was given DuoNebs q.6 hours. 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 Technique: 2 views obtained. Findings: There are bilateral lung masses identified the largest in the right lower lobe 4 x 5 cm. No pneumothorax. Heart is normal size. Mediastinal and hilar contours are within normal limits. Bony thorax no acute abnormality. Impression: Bilateral metastasis . Findings appear relatively unchanged compared to the previous CT 04/26/2025. EXAMINATION: CTA chest PE abdomen pel DATE: 04/26/2025 06:45 INDICATION: Shortness of breath. Abdominal pain. TECHNIQUE: Computed tomography angiography (CTA) of the chest was performed with 100 mL Omnipaque-350 intravenous contrast timed to evaluate the pulmonary arteries. Coronal maximum intensity projection 3D-reconstructions were created by the technologist. Computed tomography (CT) of the abdomen and pelvis was performed with intravenous contrast. Automated exposure control and iterative reconstruction technique were employed. The dose-length product was 2404.64 mGy- cm. COMPARISON: CT 03/17/2025 FINDINGS: CTA chest: There are stable scattered nodules and masses involving all lobes. The largest mass measures 9.0 x 5.2 cm in right upper lobe. No pleural effusion. The heart size is normal. No pericardial effusion. There is mediastinal and bilateral hilar lymphadenopathy. There is no pulmonary embolus. The aorta is normal. There is mild chronic anterior wedging of multiple thoracic vertebral bodies. There is mild thoracic spondylosis. CT abdomen and pelvis: The liver, gallbladder, spleen, pancreas, adrenal glands, and kidneys are normal. There are no dilated loops of bowel. The appendix is normal. There is no free intraperitoneal fluid. There is mild bilateral external iliac and left common iliac lymphadenopathy. There is mild lumbar spondylosis. There is mild chronic anterior wedging of L1 vertebral body. IMPRESSION: 1. No pulmonary embolus. 2. Stable multifocal lung disease. The differential diagnosis includes pneumonia, eosinophilic pneumonia, sarcoid, vasculitis, and organizing pneumonia. 3. Mild chest and pelvic lymphadenopathy, likely reactive. 03/17/25: EXAMINATION: CTA chest PE abdomen pel INDICATION: Abdominal pain. COMPARISON: Chest single view 02/10/2025 FINDINGS: CTA chest: There are scattered nodules and masses in the lungs with involvement of all lobes. The largest mass measures 8.3 x 4.0 mm in right upper lobe. There is mild atelectasis bilaterally. The heart size is normal. No pericardial effusion. There is mild bilateral hilar lymphadenopathy. There is mild bilateral subpectoral lymphadenopathy. The heart size is normal. No pericardial effusion. There is no pulmonary embolus. There is mild thoracic spondylosis. CT abdomen and pelvis: The liver is normal. The gallbladder is distended, likely secondary to fasting. The spleen, pancreas, adrenal glands, and kidneys are normal. There are no dilated loops of bowel. The appendix is normal. There is physiologic fluid in the pelvis. There is free intraperitoneal gas and gas in the body wall, consistent with recent surgery. There is mild left external iliac lymphadenopathy. There is mild lumbar spondylosis. IMPRESSION: 1. No pulmonary embolus. 2. 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 The differential diagnosis includes pneumonia, eosinophilic pneumonia, sarcoid, vasculitis, and organizing pneumonia. 3. Mild chest and pelvic lymphadenopathy, likely reactive. Review of Systems 2 Constitutional: Constitutional: Reports no additional constitutional complaints Eyes: Eyes: Reports no additional eye complaints ENT: Reports system reviewed and no additional complaints, except as documented Cardiovascular: Cardiovascular: Reports no additional cardiovascular complaints Respiratory: Respiratory: Reports no additional respiratory complaints Gastrointestinal: Gastrointestinal: Reports no additional gastrointestinal complaints Musculoskeletal: Musculoskeletal: Reports no additional musculoskeletal complaints Neurologic: Reports system reviewed and no additional complaints, except as documented Psychiatric: Psychiatric: Reports no additional psychiatric complaints Endocrine: Endocrine: Reports no additional endocrine complaints Hematologic/Lymphatic: Hematologic/Lymphatic: Reports no additional hematologic/lymphatic complaints Allergic/Immunologic: Allergic/Immunologic: Reports no additional allergic/immunologic complaints [facility] Past Medical History Medical History (Updated 05/03/25 @ 10:48 by Sidney Real MD) Vitiligo Obesity (BMI 30-39.9) History of methamphetamine abuse In remission for 10 years History of recurrent , currently 3 SAb and 1 elective medical termination (normal spontaneous vaginal delivery) x 2 2021-preeclampsia Surgical History Surgical History History of left salpingectomy (03/15/25) Due to ectopic History of D&C x 1 for twin loss first trimester Family History Family History (Updated 05/03/25 @ 03:04 by Heather Harper DO) Mother Diabetes mellitus COPD (chronic obstructive pulmonary disease) Grandparent Carcinoma of colon Father Unknown family medical history Social History Social History (Updated 05/03/25 @ 03:09 by Heather Harper DO) Social History: The patient and her have been since 2021. They have 2 children ages 3 and 6 years old. They have been residing in a long stay motel on and off for the last 6 months. They recently evicted from the hotel and have been living in their friend's car for the last week. The patient has smoked as much as 1.5 packs of cigarettes per day and started smoking at the age of 13. She has cut back to 0.5 packs of cigarettes per day since 2022. She has a distant history of methamphetamine use but stopped approximately 2014. She occasionally uses marijuana. She rarely drinks alcohol. She works part-time at a convenience store. Code status: Full code Surrogate decision maker: Darin () Smoking packs per day: 0.5 Smoking cigarettes per day: 10.0 Years smoked: 16 Smoking pack-years: 8.00 Smoking status: Heavy tobacco smoker Tobacco type: cigarettes Second hand tobacco smoke exposure: Yes Additional smoking assessment comments: not interested in smoking cessation Alcohol intake: current Alcohol use details: Rare Substance use: former Substance use type: marijuana and methamphetamine Other substance usage details: She has not used methamphetamine since proximally 2014. Lack of Transportation: YES Lack of Food: Often True Current Housing: I Do Not Have Housing Concerned About Future Housing: YES Difficulty Paying Gas/Electric Bills: YES Difficulty Paying for Meds: YES Currently Unemployed: No Education: High School Diploma/GED Difficulty w/ Childcare or Family Care: YES Spiritual care concerns: No Meds Home Medications and Allergies Home Medications ?Medication ?Instructions ?Recorded ?Confirmed ?Type ibuprofen 600 mg tablet 600 mg PO Q6H PRN pain #30 t abs 03/15/25 05/02/25 Rx Allergies Allergy/AdvReac Type Severity Reaction Status Date / Time No Known Allergies Allergy Verified 05/02/25 22:21 Vital Signs Vital Signs - 24 hr 05/02/25 17:53 05/02/25 18:00 05/02/25 20:10 Temperature 36.4 C Pulse Rate 86 98 Respiratory Rate 18 16 Blood Pressure 119/81 Pulse Oximetry 99 100 Oxygen Delivery Room Air Room Air 05/02/25 20:15 05/02/25 21:24 05/02/25 21:34 Temperature Pulse Rate 98 74 Respiratory Rate 16 20 20 Blood Pressure 136/88 Pulse Oximetry 98 99 Oxygen Delivery 05/02/25 22:00 05/03/25 05:23 05/03/25 05:33 Temperature 36.4 C 36.3 C L Pulse Rate 73 76 75 Respiratory Rate 19 20 17 Blood Pressure 135/85 109/70 Pulse Oximetry 99 99 Oxygen Delivery 05/03/25 07:13 05/03/25 07:13 05/03/25 07:19 Temperature Pulse Rate 78 78 96 Respiratory Rate 20 20 20 Blood Pressure Pulse Oximetry 97 Oxygen Delivery Room Air 05/03/25 08:00 05/03/25 08:55 Temperature 36.4 C L Pulse Rate 81 Respiratory Rate 16 Blood Pressure 102/73 Pulse Oximetry 97 Oxygen Delivery Room Air Exam 2 Const: General: cooperative and comfortable Orientation/consciousness: o riented to person, oriented to place and oriented to time Other: obese HENMT: Head: normal to inspection Ears: hearing grossly normal bilaterally Other: No oral ulcers. No lacrimal gland enlargement. Eyes: General: appearance normal, both eyes and all related structures Neck: Neck: normal visual inspection Chest: Chest palpation & inspection: normal inspection of the chest Resp: Effort & Inspection: normal respiratory effort and able to speak in complete sentences Auscultation: no crackles, no rales, no rhonchi, no wheezes and lung sounds not diminished Cardio: Jugular venous distension: no JVD GI: Inspection: normal to inspection GI Palp: No abdominal tenderness O ther: Laparoscopic wounds healing well. No masses. Skin: General skin exam: normal color Neuro: General: oriented to person, oriented to place and oriented to time Extrem: General: normal to inspection Other: No edema Psych: Appearance: grossly normal Results Laboratory Findings 05/03/25 05:29 05/03/25 05:29 ABG, PT/INR, D-dimer: ABG ABG pH 7.434 (7.350-7.450) 05/02/25 19:38 ABG pCO2 32.0 mmHg (35.0-45.0) L 05/02/25 19:38 ABG pO2 78.9 mmHg (80.0-100.0) L 05/02/25 19:38 ABG O2 Saturation 96.1 % (95.0-100.0) 05/02/25 19:38 Abnormal lab findings: Abnormal Labs 05/02/25 05/03/25 19:38 05:29 RBC 4.11 L Hct 36.9 L [place] % (Auto) 9.3 H 13.2 H [place] # (Auto) 0.8 H ESR 51 H ABG pCO2 32.0 L ABG pO2 78.9 L ABG HCO3 21.0 L Chloride 111 H Carbon Dioxide 20 L BUN 6 L Creatinine 0.63 L 0.64 L AST 38 H ALT 42 H C-Reactive Protein 2.5 H Total Protein 8.6 H Diagnostic Findings Additional studies: ITS Impressions Chest X-Ray 05/02/25 19:00 Impression: Bilateral metastasis . Findings appear relatively unchanged compared to the previous CT 04/26/2025. ADDENDUM: 05/02/251920 With reference to the previous CT the lesions detailed in the chest x-ray may reflect an atypical infectious process however underlying neoplasm is not excluded. If there is a previous history of neoplasm metastasis is in the differential. Findings were discussed with the referring clinician, clinically there is no prior history of neoplasm. Bronchoscopy may be of benefit to assess
[2025-05-03 10:25] LABS: Creatine Kinase 54 U/L (30-135)
[2025-05-03 11:05] LABS: INR 1.3; Prothrombin Time 16.2 Seconds (11.1-14.7)
[2025-05-03 11:06] LABS: Partial Thromboplastin Time 32.0 Seconds (22.3-36.8)
[2025-05-03] MEDS: BENZONATATE 100 MG CAPSULE 200 MG PO (17:39)
[2025-05-03] MEDS: guaiFENesin 12 HR 600 MG TABCR 1200 MG PO (21:38)
[2025-05-04] VITALS (18 sets, daily range): BP systolic 95–141; BP diastolic 52–80; PULSE 72–117; RESP 16–30; TEMP 36.3–36.7; O2SAT 94–100
[2025-05-04] MEDS: CEFEPIME 2 GM in SODIUM CHLORIDE 0.9% IV 50 ML 100 ML IVPB ×3 (03:12→18:23)
[2025-05-04] MEDS: levoFLOXacin 750 MG/D5W 150 ML 750 MG/150 ML BAG 100 MG IVPB (03:51)
[2025-05-04 06:42] LABS: Hematocrit 35.5 % (37.0-47.0); Hemoglobin 12.2 g/dL (12.0-15.0); Mean Corpuscular HGB Conc 34.4 g/dl (32-36); Mean Corpuscular Hemoglobin 31.0 pg (26-34); Mean Corpuscular Volume 90.3 fl (80-100); Platelet Count Result 302 k/mm3 (150-375); Red Blood Count 3.93 M/mm3 (4.2-5.4); White Blood Count 6.1 K/mm3 (4.5-10.0)
[2025-05-04 07:08] LABS: Alanine Aminotransferase 31 U/L (6-35); Albumin Level 3.5 g/dL (3.5-5.1); Alkaline Phosphatase 71 U/L (38-126); Anion Gap 7 mmol/L (4-12); Aspartate Amino Transferase 33 U/L (14-36); Bilirubin,Total 0.3 mg/dL (0.2-1.3); Blood Urea Nitrogen 11 mg/dL (7-17); Calcium 8.8 mg/dL (8.4-10.2); Carbon Dioxide 22 mmol/L (22-30); Chloride 110 mmol/L (98-107); Estimated CRCL calculation 136 ml/min; Estimated Glomerular Filt Rate > 60; Glucose 92 mg/dL (65-110); Potassium 3.9 mmol/L (3.4-5.0); Sodium 139 mmol/L (137-145); Total Protein 7.0 g/dL (6.3-8.2)
[2025-05-04 08:08] LABS: Cytomegalovirus (CMV) Ab, IgG <0.60 U/mL (0.00-0.59); Cytomegalovirus (CMV) Ab, IgM <30.0 AU/mL (0.0-29.9)
--- NOTE | 2025-05-04 08:30 | P.PNIM_ITS ---
Progress Note: A&P Assessment and Plan (1) Atypical pneumonia: Code(s): J18.9 - Pneumonia, unspecified organism Status: Acute Assessment and Plan: Sarcoidosis, lymphoma, cryptogenic organizing pneumonia, fungal infection and doubt metastatic disease, bacterial infection, Eosinophilic pneumonia, or vasculitis. Failed outpatient antibiotics Pulmonology consulted see Dr. Real's note for details Plan for bronchoscopy today with BAL and biopsies Holding off on further steroids extended respiratory pathogen panel pending urine Legionella and pneumococcal antigen pending EBV CMV HIV and histoplasmosis pending TB, MAC or fungal causes. Pending cefepime, Levaquin and vancomycin continue for now Guaifenesin Tessalon Perles (2) Migraine: Code(s): G43.909 - Migraine, unspecified, not intractable, without status migrainosus Status: Inactive Assessment and Plan: Patient with complaints of migraines for the last couple months increasing blurry vision Started on Fioricet MRI no acute finding (3) Transaminitis: Code(s): R74.01 - Elevation of levels of liver transaminase levels Status: Acute Assessment and Plan: no evidence of hepatic steatosis or cirrhosis on CT of the chest abdomen pelvis performed in April. 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 Pulmonology was consulted bronchoscoped today, liver ultrasound WDL, patient m ay have regular diet afterwards. MRI ordered due to migraines no acute findings Review of Systems Review of Systems: 12 systems were reviewed with pertinent positives and negatives per HPI. Except as documented in the HPI, all other systems were reviewed and are negative. Exam Narrative: General: well appearing, appears stated age. HEENT: normocephalic, atraumatic. Mucous membranes moist. EOMI, PERRLA, bilateral sclera anicteric, no conjunctival injection. Neck supple without JVD, lymphadenopathy, or bruit. Respiratory: clear bilaterally. No rales/rhonic/wheezes. Continue his coughing Cardiovascular: Regular rate and rhythm, normal S1-S2. No murmurs, rubs, or clicks. PMI is nondisplaced, capillary refill less than 3 second. Abdomen: Soft, round, no pulsatile masses, nondistended and nontender. No rebound, no guarding. Bowel sounds present to all four quadrants. No high pitch or tinkling sounds, resonant to percussion. Extremities: No cyanosis, clubbing, or edema present. Pulses are palpable 2/2. Active ROM to all four extremities. Neuro: Alert and orientated x 4. PERRLA. Cranial nerves 2-12 intact without focal deficit. Skin: Warm, dry, and intact, without rash, erythema, or lesion. Psych: pleasant, cooperative, normal speech, normal affect, no hallucinations, no dysarthia Objective Data Vital Signs Vital Signs: Vital Signs - 24 hr 05/03/25 08:55 05/03/25 13:49 05/03/25 13:49 Temperature Pulse Rate 85 80 Respiratory Rate 20 20 Blood Pressure Pulse Oximetry 97 Oxygen Delivery Room Air Room Air Fraction of Inspired Oxygen 05/03/25 13:56 05/03/25 14:00 05/03/25 16:00 Temperature 97.7 F 97.8 F Pulse Rate 87 80 83 Respiratory Rate 20 18 16 Blood Pressure 139/67 128/76 Pulse Oximetry 100 100 Oxygen Delivery Fraction of Inspired Oxygen 05/03/25 20:00 05/03/25 21:39 05/03/25 21:44 Temperature 97.8 F Pulse Rate 78 76 Respiratory Rate 18 18 Blood Pressure 130/81 Pulse Oximetry 97 97 Oxygen Delivery Room Air Room Air Fraction of Inspired Oxygen 21 05/03/25 21:44 05/03/25 22:55 05/04/25 05:28 Temperature 97.9 F Pulse Rate 76 79 Respiratory Rate 18 16 Blood Pressure 118/78 Pulse Oximetry 98 98 Oxygen Delivery Room Air Fraction of Inspired Oxygen 21 Intake/Output Intake/Output: Intake & Output 05/01/25 05/02/25 05/03/25 05/04/25 23:59 23:59 23:59 23:59 Intake Total 1180 900 Output Total 650 Balance 530 900 Meds/Results Medications: Active Medications Generic Name Dose Route Start Last Admin Trade Name Freq PRN Reason Stop Dose Admin Acetaminophen/Butalbital/Caffeine 1 tab 05/03/25 13:14 Acetaminophen/Butalbital/Caffeine 325-50-40 Mg Tablet (Fioricet) PO Q4H PRN Migraine Headache Albuterol 2.5 mg 05/03/25 08:00 05/04/25 02:15 Albuterol Sulfate Neb 2.5 Mg/3 Ml Inh INHALATION Not Given Q6HRT KASEY Benzonatate 200 mg 05/03/25 17:00 05/03/25 17:39 Benzonatate 100 Mg Capsule PO 200 mg TID KASEY Administration Calcium Carbonate 200 mg 05/02/25 22:10 Calcium Carbonate (Tums) 500 Mg (200 Mg Elemental) PO Q6H PRN Indigestion Docusate Sodium 100 mg 05/02/25 22:10 Docusate Sodium 100 Mg Capsule PO Q12H PRN Constipation Enoxaparin Sodium 40 mg 05/03/25 09:00 05/03/25 08:43 Enoxaparin 40 Mg/0.4 Ml Syringe SUB-Q 40 mg DAILY KASEY Administration Guaifenesin 1,200 mg 05/03/25 21:00 05/03/25 21:38 Guaifenesin 12 Hr 600 Mg Tabcr PO 1,200 mg Q12HR KASEY Administration Cefepime HCl 2 gm/ Sodium 50 mls @ 100 mls/hr 05/03/25 11:00 05/04/25 03:42 Chloride IVPB Infused Q8H KASEY Infusion Vancomycin HCl 1,500 mg in 500 mls @ 250 mls/hr 05/03/25 10:00 05/04/25 00:00 Vancomycin 1,500 Mg/Ns 500 Ml IVPB Infused Q12H KASEY Infusion Levofloxacin/Dextrose 750 mg in 150 mls @ 100 mls/hr 05/04/25 03:00 05/04/25 05:21 Levaquin 750 Mg/D5w 150 Ml IVPB Infused Q24H KASEY Infusion Ibuprofen 600 mg 05/02/25 22:10 Ibuprofen 600 Mg Tablet PO Q6H PRN Pain Rated 1-3 Radiology Results: ITS Impressions Upper Quadrant Ultrasound 05/03/25 15:23 IMPRESSION: No evidence for acute cholecystitis or cholelithiasis. No biliary ductal dilatation is noted. Labs Labs: Laboratory Results - last 24 hr 05/03/25 05/03/25 05/03/25 05:28 05:29 10:43 WBC RBC Hgb Hct MCV MCH MCHC RDW Plt Count MPV PT 16.2 H INR 1.3 APTT 32.0 Sodium Potassium Chloride Carbon Dioxide Anion Gap BUN Creatinine Estim Creat Clear Calc Estimated GFR Glucose Calcium Total Bilirubin AST ALT Alkaline Phosphatase Total Creatine Kinase 54 NT-Pro-B Natriuret Pep 51 Total Protein Albumin Procalcitonin 0.0 Rheumatoid Factor 14.0 Rheumatoid Factor Scrn Cancelled Rheumatoid Factor Titer Cancelled CMV IgG Ab <0.60 CMV IgM Ab <30.0 05/04/25 05:45 WBC 6.1 RBC 3.93 L Hgb 12.2 Hct 35.5 L MCV 90.3 MCH 31.0 MCHC 34.4 RDW 12.3 Plt Count 302 MPV 9.1 PT INR APTT Sodium 139 Potassium 3.9 Chloride 110 H Carbon Dioxide 22 Anion Gap 7 BUN 11 Creatinine 0.69 L Estim Creat Clear Calc 136 Estimated GFR > 60 Glucose 92 Calcium 8.8 Total Bilirubin 0.3 AST 33 ALT 31 Alkaline Phosphatase 71 Total Creatine Kinase NT-Pro-B Natriuret Pep Total Protein 7.0 Albumin 3.5 Procalcitonin Rheumatoid Factor Rheumatoid Factor Scrn Rheumatoid Factor Titer CMV IgG Ab CMV IgM Ab Quality VTE Prophylaxis VTE prophylaxis: pharmacologic ordered (Lovenox 40 mg subQ daily.)
[2025-05-04] MEDS: ALBUTEROL SULFATE NEB 2.5 MG/3 ML INH INHALATION (08:55)
--- NOTE | 2025-05-04 08:56 | PM.PNPUL ---
Progress Note: A&P Assessment and Plan (1) Lung mass: Code(s): R91.8 - Other nonspecific abnormal finding of lung field Status: Acute Assessment and Plan: female with bilateral large lung masses first seen on chest x-ray 02/10/2025 and on more recent CT scans from 03/17/2025 and 04/26/2025, now the masses in RUL, RLL and LLL with largest 9.0 X 5.2 in RUL and are without vascular or airway distortion within the masses and with some progression since 03/17/2025, mediastinal lymphadenopathy that has progressed since 03/17/2025. She complains of a history of migraines that have all been worsening over the last few months, painful swollen hands that have been worse over the last 6-8 months, blurry vision worse over the last 2 months. HIV negative, MRSA swab negative, COVID, influenza, RSV RT PCR assay negative. Eosinophils 122 per micro L on admission. Etiology: Sarcoidosis, lymphoma, cryptogenic organizing pneumonia, fungal infection and doubt metastatic disease, bacterial infection, Eosinophilic pneumonia, or vasculitis. 05/03 plan: Will proceed with bronchoscopy with BAL and transbronchial biopsies as soon as can be scheduled. I have discussed with assist coordinator and hopefully this will occur today. Unfortunately no anesthesia time later today. Continue vancomycin, cefepime and levofloxacin for now. Will hold off on any systemic steroids until pathology has returned. I will send serologies for autoimmune disease. I will order a NEELA screen that includes 11 different auto antibodies, an ANCA screen, a rheumatoid factor, anti CCP antibody, hypersensitivity pneumonitis panel, a CPK, an aldolase level, and myomarker 3 plus profile. I will send respiratory pathogen panel, urine for Legionella, urine for pneumococcal antigen, urine for Histoplasma, mycoplasma IgM, Aspergillus IgE titers. CMV titers, EBV titers. Serologies: CPK 54, RF 14 Titers: CMV IgG less than 0.6, negative. CMV IgM less than 30, negative. Hepatitis a, B and C screen negative. 05/04/2025: Patient states that her breathing at rest is a little bit better and overall she feels 25% back to her normal. Her dyspnea on exertion is a little bit better but persists at 20 ft, walking to the bathroom. She has no change in her persistent dry cough. Room air saturations are 100%. She is afebrile. White blood cell count 6.1, creatinine 0.69. Patient an overnight oximetry on room air with recording duration of 6 hours and 17 minutes. Average saturation 97%. Low saturation 93%. Time with saturation less than or equal to 88% was 0 minutes. Oxygen desaturation index 1.0. Plan: Will proceed with bronchoscopy with BAL and transbronchial biopsies. Continue vancomycin, cefepime and levofloxacin (all day 2) pending blood cultures and additional microbiology studies. (2) Asthma: Code(s): J45.909 - Unspecified asthma, uncomplicated Status: Acute Assessment and Plan: Regarding patient's history of asthma she was diagnosed to about age 16-17 and was given p.r.n. albuterol. Her triggers include perfumes, change in the season from spring to summer and from fall to winter, she takes p.r.n. albuterol but has not had any physician follow-up and has not taking any albuterol in 2 years. She wheezes when she exerts herself. 05/03/2025: Patient does not feel like she is having an asthma exacerbation. She has no wheezing. Plan: Will continue albuterol nebulizer q.6 hours. 05/04/2025: Patient states the albuterol nebulizers are helping her. Plan: I will add ipratropium today and place her on DuoNebs q.6 hours. Subjective Date/time seen: 05/04/25 08:56 Interval history: 05/03/2025: This is a new pulmonary consult for lung masses. 29-year-old with a history of asthma, tobacco use, and lung masses. Regarding patient's history of asthma she was diagnosed to about age 16-16 and was given p.r.n. albuterol. Her triggers include perfumes, change in the season from spring to summer and from fall to winter, she takes p.r.n. albuterol but has not had any physician follow-up and has not taking any albuterol in 2 years. She wheezes when she exerts herself. Regarding her tobacco use, the patient smoked 2 packs per day from age [age] for a total of 28 pack years, currently she is smoking half a pack per day. She smoked marijuana daily from age [age] and recently smokes 1 time every 2 weeks. Patient was exposed to secondhand smoke from her mother and currently smoke exposed to secondhand smoke from her . Patient vape tobacco products for 3 months and quit 1 month ago. Patient did methamphetamine 2 to 3 times a week from age [age] and has not done any since then. She denies cocaine, heroin use. 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 Patient denies prior history of cancer, chemotherapy, radiation therapy. No significant family history. Her grandpa has colon cancer he is in his 70s. She denies recurrent sinus disease. She has no new skin rashes, no new swollen or painful joints. She does complain of painful week hands occasionally dropping her phone for the last 6-8 months. She has headaches for 5 years that have been come becoming more frequent. She describes blurry vision for 3 years which is worse over the last 2 months and pain behind both eyes. 01/17/2025: Presented to the emergency room with nausea, vomiting and diarrhea. Room air saturations 100%. Creatinine 0.93, UA was negative for blood or protein. White blood cell count 7.0, eosinophils 5.1%. Diagnosed with acute viral illness and no meds were given. 02/09/2025: Presented to the ER complaining of hot, cold, sweats, nausea, vomiting, diarrhea. Exposed to sick children. She felt bloated. Room air saturations 100%. White blood cell count 8.3, creatinine 0.57, COVID, influenza, RSV RT PCR assay negative. Chest x-ray with rounded masses right lower lobe and right mid lung field. Patient was treated with azithromycin and Augmentin. 03/10/2025 presented with vaginal bleeding and a positive beta hCG. Returned on 03/12 and then 03/14 with vaginal bleeding and of sound to have a ruptured a toxic requiring laparoscopic left fallopian tube and ovary removal. Patient was discharged home. Patient described a minimal dry cough that was nothing out of the ordinary for her and otherwise had no breathing issues on 03/14/2025. 03/17/2025: Patient presented to the emergency depart with abdominal pain, nausea no vomiting. Room air saturations 99%. CT scan chest abdomen and pelvis demonstrated well-circumscribed round consolidative masses in the right upper lobe, 2 distinct lesions in the right lower lobe and 1 in the left lower lobe. White blood cell count 8.3, creatinine 0.65. Patient was told she had pneumonia and if she took antibiotics lesions with go away. She was prescribed azithromycin and Augmentin. She took those and felt no different. On 03/29 the patient noticed the development of rest shortness of breath and dyspnea on exertion. Her dry cough had increased in intermittently she had chest pain. Symptoms progressed on 04/23 she had hot and cold feelings with perspiration temperature was 98.2?, she had worsening dry cough and phlegm 2 to 3 times a day on a good day and 5-10 the on a bad day described as green to yellow or milky white. 04/26/2025 patient presented to the emergency room with continued respiratory complaints, dizziness, lightheaded, dyspnea on exertion across the room. Room air saturations 99%. White blood cell count 6.8, eosinophils 3.3%. Creatinine 0.65. CT scan of the chest compared to 03/17/2025 showed continued pulmonary round consolidative infiltrates right upper lobe, right lower lobe x2 and left lower lobe. The mass is not do not distort pulmonary vasculature or the airways. There was minimal progression from 03/17/2025. There was increased mediastinal adenopathy. Patient was given Augmentin and doxycycline but she could not afford these and did not fill these prescriptions. 05/02/2025: Patient presented to the emergency room with worsening shortness of breath at rest and dyspnea on exertion, cough with green to yellow phlegm, her kids had similar symptoms. Her blood pressure is 119/81, heart rate 86, respirations 18, room air saturations 99%. White blood cell count 6.1, eosinophils 2%, CRP 2.5, creatinine 0.63, HIV negative, MRSA swab negative, COVID influenza RSV RT PCR assay negative. Room air blood gas 7.43/32/79. Patient was treated with Solu-Medrol 125 x 1 dose, vancomycin, cefepime and Levaquin. Patient was given DuoNebs q.6 hours. 05/03/2025: Patient states she is the same. She has continued shortness of breath at rest and dyspnea on exertion. She is afebrile. She is on room air with saturations 98%. She is afebrile. White blood 6.2, creatinine 0.64. procalcitonin 0.1. BNP 51. 05/04/2025: Patient states that her breathing at rest is a little bit better and overall she feels 25% back to her normal. Her dyspnea on exertion is a little bit better but persists at 20 ft, walking to the bathroom. She has no change in her persistent dry cough. Room air saturations are 100%. She is afebrile. White blood cell count 6.1, creatinine 0.69. Patient an overnight oximetry on room air with recording duration of 6 hours and 17 minutes. Average saturation 97%. Low saturation 93%. Time with saturation less than or equal to 88% was 0 minutes. Oxygen desaturation index 1.0. DATA: 05/04/25: Patient had an overnight oximetry on room air with recording duration of 6 hours and 17 minutes. Average saturation 97%. Low saturation 93%. Time with saturation less than or equal to 88% was 0 minutes. Oxygen desaturation index 1.0. 05/02/25: EXAMINATION: XR chest 2V, 05/02/2025 18:51 TUBE LANCER HISTORY: cough COMPARISON: 04/26/2025. Technique: 2 views obtained. Findings: There are bilateral lung masses identified the largest in the right lower lobe 4 x 5 cm. No pneumothorax. Heart is normal size. Mediastinal and hilar contours are within normal limits. Bony thorax no acute abnormality. Impression: Bilateral metastasis . Findings appear relatively unchanged compared to the previous CT 04/26/2025. EXAMINATION: CTA chest PE abdomen pel DATE: 04/26/2025 06:45 INDICATION: Shortness of breath. Abdominal pain. TECHNIQUE: Computed tomography angiography (CTA) of the chest was performed with 100 mL Omnipaque-350 intravenous contrast timed to evaluate the pulmonary arteries. Coronal maximum intensity projection 3D-reconstructions were created by the technologist. Computed tomography (CT) of the abdomen and pelvis was performed with intravenous contrast. Automated exposure control and iterative reconstruction technique were employed. The dose-length product was 2404.64 mGy-cm. COMPARISON: CT 03/17/2025 FINDINGS: CTA chest: There are stable scattered nodules and masses involving all lobes. The largest mass measures 9.0 x 5.2 cm in right upper lobe. No pleural effusion. The heart size is normal. No pericardial effusion. There is mediastinal and bilateral hilar lymphadenopathy. There is no pulmonary embolus. The aorta is normal. There is mild chronic anterior wedging of multiple thoracic vertebral bodies. There is mild thoracic spondylosis. CT abdomen and pelvis: The liver, gallbladder, spleen, pancreas, adrenal glands, and kidneys are normal. There are no dilated loops of bowel. The appendix is normal. There is no free intraperitoneal fluid. There is mild bilateral external iliac and left common iliac lymphadenopathy. There is mild lumbar spondylosis. There is mild chronic anterior wedging of L1 vertebral body. IMPRESSION: 1. No pulmonary embolus. 2. Stable multifocal lung disease. The differential diagnosis includes pneumonia, eosinophilic pneumonia, sarcoid, vasculitis, and organizing pneumonia. 3. Mild chest and pelvic lymphadenopathy, likely reactive. 03/17/25: EXAMINATION: CTA chest PE abdomen pel INDICATION: Abdominal pain. COMPARISON: Chest single view 02/10/2025 FINDINGS: CTA chest: There are scattered nodules and masses in the lungs with involvement of all lobes. The largest mass measures 8.3 x 4.0 mm in right upper lobe. There is mild atelectasis bilaterally. The heart size is normal. No pericardial effusion. There is mild bilateral hilar lymphadenopathy. There is mild bilateral subpectoral lymphadenopathy. The heart size is normal. No pericardial effusion. There is no pulmonary embolus. There is mild thoracic spondylosis. CT abdomen and pelvis: The liver is normal. The gallbladder is distended, likely secondary to fasting. The spleen, pancreas, adrenal glands, and kidneys are normal. There are no dilated loops of bowel. The appendix is normal. There is physiologic fluid in the pelvis. There is free intraperitoneal gas and gas in the body wall, consistent with recent surgery. There is mild left external iliac lymphadenopathy. There is mild lumbar spondylosis. IMPRESSION: 1. No pulmonary embolus. 2. 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 The differential diagnosis includes pneumonia, eosinophilic pneumonia, sarcoid, vasculitis, and organizing pneumonia. 3. Mild chest and pelvic lymphadenopathy, likely reactive. Review of Systems Constitutional: Constitutional: Reports no additional constitutional complaints Eyes: Eyes: Reports no additional eye complaints ENT: Reports system reviewed and no additional complaints, except as documented Cardiovascular: Cardiovascular: Reports no additional cardiovascular complaints Respiratory: Respiratory: Reports no additional respiratory complaints Gastrointestinal: Gastrointestinal: Reports no additional gastrointestinal complaints Musculoskeletal: Musculoskeletal: Reports no additional musculoskeletal complaints Neurologic: Reports system reviewed and no additional complaints, except as documented Psychiatric: Psychiatric: Reports no additional psychiatric complaints Endocrine: Endocrine: Reports no additional endocrine complaints Hematologic/Lymphatic: Hematologic/Lymphatic: Reports no additional hematologic/lymphatic complaints Allergic/Immunologic: Allergic/Immunologic: Reports no additional allergic/immunologic complaints Exam Const: General: cooperative and comfortable Orientation/consciousness: oriented to person, oriented to place and oriented to time Other: obese HENMT: Head: normal to inspection Ears: hearing grossly normal bilaterally Other: No oral ulcers. No lacrimal gland enlargement. Eyes: General: appearance normal, both eyes and all related structures Neck: Neck: normal visual inspection Chest: Chest palpation & inspection: normal inspection of the chest Resp: Effort & Inspection: normal respiratory effort and able to speak in complete sentences Auscultation: no crackles, no rales, no rhonchi, no wheezes and lung sounds not diminished Cardio: Jugular venous distension: no JVD GI: Inspection: normal to inspection Other: Laparoscopic wounds healing well. No masses. Skin: General skin exam: normal color Neuro: General: oriented to person, oriented to place and oriented to time Extrem: General: normal to inspection Other: No edema Psych: Appearance: grossly normal Objective Data Vital Signs Vital Signs: Vital Signs - 24 hr 05/03/25 13:49 05/03/25 13:49 05/03/25 13:56 Temperature Pulse Rate 85 80 87 Respiratory Rate 20 20 20 Blood Pressure Pulse Oximetry 97 Oxygen Delivery Room Air Fraction of Inspired Oxygen 05/03/25 14:00 05/03/25 16:00 05/03/25 20:00 Temperature 36.5 C 36.6 C Pulse Rate 80 83 Respiratory Rate 18 16 Blood Pressure 139/67 128/76 Pulse Oximetry 100 100 Oxygen Delivery Room Air Fraction of Inspired Oxygen 05/03/25 21:39 05/03/25 21:44 05/03/25 21:44 Temperature 36.6 C Pulse Rate 78 76 76 Respiratory Rate 18 18 18 Blood Pressure 130/81 Pulse Oximetry 97 97 Oxygen Delivery Room Air Fraction of Inspired Oxygen 21 05/03/25 22:55 05/04/25 05:28 Temperature 36.6 C Pulse Rate 79 Respiratory Rate 16 Blood Pressure 118/78 Pulse Oximetry 98 98 Oxygen Delivery Room Air Fraction of Inspired Oxygen 21 Intake/Output Intake/Output: Intake & Output 05/01/25 05/02/25 05/03/25 05/04/25 23:59 23:59 23:59 23:59 Intake Total 1180 900 Output Total 650 Balance 530 900 Meds/Results Medications: Active Medications Generic Name Dose Route Start Last Admin Trade Name Freq PRN Reason Stop Dose Admin Acetaminophen/Butalbital/Caffeine 1 tab 05/03/25 13:14 Acetaminophen/Butalbital/Caffeine 325-50-40 Mg Tablet (Fioricet) PO Q4H PRN Migraine Headache Albuterol 2.5 mg 05/03/25 08:00 05/04/25 02:15 Albuterol Sulfate Neb 2.5 Mg/3 Ml Inh INHALATION Not Given Q6HRT KASEY Benzonatate 200 mg 05/03/25 17:00 05/03/25 17:39 Benzonatate 100 Mg Capsule PO 200 mg TID KASEY Administration Calcium Carbonate 200 mg 05/02/25 22:10 Calcium Carbonate (Tums) 500 Mg (200 Mg Elemental) PO Q6H PRN Indigestion Docusate Sodium 100 mg 05/02/25 22:10 Docusate Sodium 100 Mg Capsule PO Q12H PRN Constipation Enoxaparin Sodium 40 mg 05/03/25 09:00 05/03/25 08:43 Enoxaparin 40 Mg/0.4 Ml Syringe SUB-Q 40 mg DAILY KASEY Administration Guaifenesin 1,200 mg 05/03/25 21:00 05/03/25 21:38 Guaifenesin 12 Hr 600 Mg Tabcr PO 1,200 mg Q12HR KASEY Administration Cefepime HCl 2 gm/ Sodium 50 mls @ 100 mls/hr 05/03/25 11:00 05/04/25 03:42 Chloride IVPB Infused Q8H KASEY Infusion Vancomycin HCl 1,500 mg in 500 mls @ 250 mls/hr 05/03/25 10:00 05/04/25 00:00 Vancomycin 1,500 Mg/Ns 500 Ml IVPB Infused Q12H KASEY Infusion Levofloxacin/Dextrose 750 mg in 150 mls @ 100 mls/hr 05/04/25 03:00 05/04/25 05:21 Levaquin 750 Mg/D5w 150 Ml IVPB Infused Q24H KASEY Infusion Ibuprofen 600 mg 05/02/25 22:10 Ibuprofen 600 Mg Tablet PO Q6H PRN Pain Rated 1-3 Radiology Results: ITS Impressions Upper Quadrant Ultrasound 05/03/25 15:23 IMPRESSION: No evidence for acute cholecystitis or cholelithiasis. No biliary ductal dilatation is noted. Labs Labs: Laboratory Results - last 24 hr 05/03/25 05/03/25 05/03/25 05:28 05:29 10:43 WBC RBC Hgb Hct MCV MCH MCHC RDW Plt Count MPV PT 16.2 H INR 1.3 APTT 32.0 Sodium Potassium Chloride Carbon Dioxide Anion Gap BUN Creatinine Estim Creat Clear Calc Estimated GFR Glucose Calcium Total Bilirubin AST ALT Alkaline Phosphatase Total Creatine Kinase 54 Total Protein Albumin Procalcitonin 0.0 Rheumatoid Factor 14.0 Rheumatoid Factor Scrn Cancelled Rheumatoid Factor Titer Cancelled CMV IgG Ab <0.60 CMV IgM Ab <30.0 05/04/25 05:45 WBC 6.1 RBC 3.93 L Hgb 12.2 Hct 35.5 L MCV 90.3 MCH 31.0 MCHC 34.4 RDW 12.3 Plt Count 302 MPV 9.1 PT INR APTT Sodium 139 Potassium 3.9 Chloride 110 H Carbon Dioxide 22 Anion Gap 7 BUN 11 Creatinine 0.69 L Estim Creat Clear Calc 136 Estimated GFR > 60 Glucose 92 Calcium 8.8 Total Bilirubin 0.3 AST 33 ALT 31 Alkaline Phosphatase 71 Total Creatine Kinase Total Protein 7.0 Albumin 3.5 Procalcitonin Rheumatoid Factor Rheumatoid Factor Scrn Rheumatoid Factor Titer CMV IgG Ab CMV IgM Ab
[2025-05-04] MEDS: BENZONATATE 100 MG CAPSULE 200 MG PO ×2 (10:03→17:16)
[2025-05-04] MEDS: guaiFENesin 12 HR 600 MG TABCR 1200 MG PO ×2 (10:03→22:05)
[2025-05-04 10:08] LABS: Anti-CCP Ab, IgG/IgA 23 units (0-19)
[2025-05-04] MEDS: IPRATROPIUM 0.5 MG/ALBUTEROL SULFATE 2.5 MG (BASE) AMPUL.NEB 3 ML INHALATION ×2 (12:29→19:48)
[2025-05-04] MEDS: LACTATED RINGERS 1,000 ML 150 ML IV CONT (13:08)
[2025-05-04 13:09] LABS: BEDSIDEPREGUCG Negative (Negative)
[2025-05-04 13:09] LABS: EBV Nuclear Antigen Ab, IgG 186.0 U/mL (0.0-17.9)
--- NOTE | 2025-05-04 13:21 | WPDANESEPPF ---
Anes - Initial Pre Proc Eval Procedure: Operation Date: 05/04/25 14:15 Proposed Procedures p Flexible Bronchoscopy w Fluoro - Sidney Real MD Date/Time: 05/04/25 13:21 Surgeon: Heather Harper DO Pre Op Diagnosis: Atypical pneumonia, Failed outpatient treatment Patient Data Age: 29 Gender: F Height: 1.8 m Weight: 103.8 kg Last Vital Signs Temp 97.7 F 05/04/25 13:04 Pulse 77 05/04/25 13:04 Resp 18 05/04/25 13:04 BP 135/80 05/04/25 13:04 Pulse Ox 99 05/04/25 13:04 O2 Del Method Room Air 05/04/25 13:04 FiO2 21 05/03/25 22:55 Allergies Allergy/AdvReac Type Severity Reaction Status Date / Time No Known Allergies Allergy Verified 05/04/25 13:03 Home Medications ?Medication ?Instructions ?Recorded ?Confirmed ?Type ibuprofen 600 mg tablet 600 mg PO Q6H PRN pain #30 tabs 03/15/25 05/02/25 Rx Laboratory Tests 05/03/25 05/03/25 05/03/25 05:28 05:29 10:27 WBC RBC Hgb Hct MCV MCH MCHC RDW Plt Count MPV Sodium Potassium Chloride Carbon Dioxide Anion Gap BUN Creatinine Estim Creat Clear Calc Estimated GFR Glucose Calcium Total Bilirubin AST ALT Alkaline Phosphatase Total Protein Albumin POC Urine HCG, Qual Vancomycin Trough CCP IgG/IgA Ab 23 H units (0-19) Chlamy pneumoniae PCR Adenovirus (PCR) B. pertussis DNA (PCR) B.parapertussis DNA PCR Coronavirus OC43 (PCR) Coronavirus HKU1 (PCR) Coronavirus 229E (PCR) Coronavirus NL63 (PCR) CMV IgG Ab <0.60 U/mL (0.00-0.59) CMV IgM Ab <30.0 AU/mL (0.0-29.9) EBV Capsid Ag IgG Ab 87.3 H U/mL (0.0-17.9) EBV Capsid Ag IgM Ab <36.0 U/mL (0.0-35.9) EBV Nuclear Antigen Ab 186.0 H U/mL (0.0-17.9) EBV Interpretation Comment (.) Human Metapneumovir PCR Influenza A (H1) PCR Influ A (H1/09) PCR Influenza A (H3) PCR Influenza Type A (PCR) Influenza Type B (PCR) M.pneumoniae IgM Titer <770 U/mL (0-769) M. pneumoniae (PCR) Parainfluenza 1 (PCR) Parainfluenza 2 (PCR) Parainfluenza 3 (PCR) Parainfluenza 4 (PCR) RSV (PCR) Entero/Rhino (PCR) SARS-CoV-2 (PCR) 05/04/25 05/04/25 05/04/25 05:45 08:56 10:43 WBC 6.1 K/mm3 (4.5-10.0) RBC 3.93 L M/mm3 (4.2-5.4) Hgb 12.2 g/dL (12.0-15.0) Hct 35.5 L % (37.0-47.0) MCV 90.3 fl (80-100) MCH 31.0 pg (26-34) MCHC 34.4 g/dl (32-36) RDW 12.3 % (11.5-14.5) Plt Count 302 k/mm3 (150-375) MPV 9.1 fl (7.4-10.4) Sodium 139 mmol/L (137-145) Potassium 3.9 mmol/L (3.4-5.0) Chloride 110 H mmol/L (98-107) Carbon Dioxide 22 mmol/L (22-30) Anion Gap 7 mmol/L (4-12) BUN 11 mg/dL (7-17) Creatinine 0.69 L mg/dL (0.7-1.0) Estim Creat Clear Calc 136 ml/min Estimated GFR > 60 (59 - ) Glucose 92 mg/dL (65-110) Calcium 8.8 mg/dL (8.4-10.2) Total Bilirubin 0.3 mg/dL (0.2-1.3) AST 33 U/L (14-36) ALT 31 U/L (6-35) Alkaline Phosphatase 71 U/L (38-126) Total Protein 7.0 g/dL (6.3-8.2) Albumin 3.5 g/dL (3.5-5.1) POC Urine HCG, Qual Vancomycin Trough 6.6 L ug/mL (10.0-20.0) CCP IgG/IgA Ab Chlamy pneumoniae PCR Pending Adenovirus (PCR) Pending B. pertussis DNA (PCR) Pending B.parapertussis DNA PCR Pending Coronavirus OC43 (PCR) Pending Coronavirus HKU1 (PCR) Pending Coronavirus 229E (PCR) Pending Coronavirus NL63 (PCR) Pending CMV IgG Ab CMV IgM Ab EBV Capsid Ag IgG Ab EBV Capsid Ag IgM Ab EBV Nuclear Antigen Ab EBV Interpretation Human Metapneumovir PCR Pending Influenza A (H1) PCR Pending Influ A () PCR Pending Influenza A (H3) PCR Pending Influenza Type A (PCR) Pending Influenza Type B (PCR) Pending M.pneumoniae IgM Titer M. pneumoniae (PCR) Pending Parainfluenza 1 (PCR) Pending Parainfluenza 2 (PCR) Pending Parainfluenza 3 (PCR) Pending Parainfluenza 4 (PCR) Pending RSV (PCR) Pending Entero/Rhino (PCR) Pending SARS-CoV-2 (PCR) Pending 05/04/25 13:04 WBC RBC Hgb Hct MCV MCH MCHC RDW Plt Count MPV Sodium Potassium Chloride Carbon Dioxide Anion Gap BUN Creatinine Estim Creat Clear Calc Estimated GFR Glucose Calcium Total Bilirubin AST ALT Alkaline Phosphatase Total Protein Albumin POC Urine HCG, Qual Negative (Negative) Vancomycin Trough CCP IgG/IgA Ab Chlamy pneumoniae PCR Adenovirus (PCR) B. pertussis DNA (PCR) B.parapertussis DNA PCR Coronavirus OC43 (PCR) Coronavirus HKU1 (PCR) Coronavirus 229E (PCR) Coronavirus NL63 (PCR) CMV IgG Ab CMV IgM Ab EBV Capsid Ag IgG Ab EBV Capsid Ag IgM Ab EBV Nuclear Antigen Ab EBV Interpretation Human Metapneumovir PCR Influenza A (H1) PCR Influ A () PCR Influenza A (H3) PCR Influenza Type A (PCR) Influenza Type B (PCR) M.pneumoniae IgM Titer M. pneumoniae (PCR) Parainfluenza 1 (PCR) Parainfluenza 2 (PCR) Parainfluenza 3 (PCR) Parainfluenza 4 (PCR) RSV (PCR) Entero/Rhino (PCR) SARS-CoV-2 (PCR) Patient hx anesthesia problems: none Family hx anesthesia problems: none Results Review: All pre-operative results and documents have been reviewed as part of the pre-operative evaluation. REPLACED BY [facility] Past Medical History Medical History Vitiligo Obesity (BMI 30-39.9) History of methamphetamine abuse In remission for 10 years History of recurrent , currently 3 SAb and 1 elective medical termination (normal spontaneous vaginal delivery) x 2 2021-preeclampsia Surgical History Surgical History History of left salpingectomy (03/15/25) Due to ectopic History of D&C x 1 for twin loss first trimester Family History Family History Mother Diabetes mellitus COPD (chronic obstructive pulmonary disease) Grandparent Carcinoma of colon Father Unknown family medical history Social History Social History (Updated 05/03/25 @ 03:09 by Heather Harper DO) Social History: The patient and her have been since 2021. They have 2 children ages 3 and 6 years old. They have been residing in a long stay motel on and off for the last 6 months. They recently evicted from the hotel and have been living in their friend's car for the last week. The patient has smoked as much as 1.5 packs of cigarettes per day and started smoking at the age of 13. She has cut back to 0.5 packs of cigarettes per day since 2022. She has a distant history of methamphetamine use but stopped approximately 2014. She occasionally uses marijuana. She rarely drinks alcohol. She works part-time at a convenience store. Code status: Full code Surrogate decision maker: Darin () Smoking packs per day: 0.5 Smoking cigarettes per day: 10.0 Years smoked: 16 Smoking pack-years: 8.00 Smoking status: Heavy tobacco smoker Tobacco type: cigarettes Second hand tobacco smoke exposure: Yes Additional smoking assessment comments: not interested in smoking cessation Alcohol intake: current Alcohol use details: Rare Substance use: former Substance use type: marijuana and methamphetamine Other substance usage details: She has not used methamphetamine since proximally 2014. Lack of Transportation: YES Lack of Food: Often True Current Housing: I Do Not Have Housing Concerned About Future Housing: YES Difficulty Paying Gas/Electric Bills: YES Difficulty Paying for Meds: YES Currently Unemployed: No Education: High School Diploma/GED Difficulty w/ Childcare or Family Care: YES Spiritual care concerns: No Anes - Eval Final PreProcedure Day of Procedure 05/04/25 13:21 Patient weight: obese Lungs: normal air movement Airway: Mallampati scale class II Neurological: alert and oriented Last oral intake: >/= 8 hours ASA classification: III Emergent: no Anesthetic plan: proceed Anesthesia type and monitoring: general ETT and standard monitoring Results Review: All pre-operative results and documents have been reviewed as part of the pre-operative evaluation. Complicated hx reviewed. Notes appreciated. Atypical pnemonia, differential noted, pt stable resp status at this time. Informed Consent: The patient's anesthetic plan and its attendant risks and benefits were discussed with the patient/family/POA. Questions were solicited and answers provided to the satisfaction of the patient/family/POA.
[2025-05-04] MEDS: LIDOCAINE 2% LOCAL INJ 20 ML VIAL 6 ML INFILTRATE (14:53)
[2025-05-04] MEDS: SODIUM CHLORIDE 0.9% IV 500 ML BAG 140 ML IRRIGATION (15:02)
--- NOTE | 2025-05-04 15:07 | S_PTH ---
PATIENT: Julieta Reyes LOC: [id number] U#:[id number] AGE/SX: 29/F ROOM: 303 RE05/03/[address]: Latonya De Luna APRN : 1995 BED: 01 DIS: 05/05/2025 SPEC #: [id number] RECD: 05/05/25 07:19 STATUS: SELAM RETenisha #: [id number] WAYNE: 05/04/25 15:[address]: Sidney Real DEPT: [facility] Surgical RECD BY: Chelsey Stewart ENTERED: 05/05/25 07:22 SP TYPE: Surgical OTHR DR: DO Latonya Jimenez APRN [employer] FLOOR LEADER PHYSICIAN Tissues: A - Lung Biopsy B - Bronchial Alveolar Lavage Flow Procedures: Pas with Diastase Unstained Slides Hematoxylin and Eosin Stain Cell Block Acid Fast Stain Gross and Microscopic Level 4 Cytopathology Cytospin Flow Cytometry
[2025-05-04 15:09] LABS: ANA by IFA Rfx Titer/Pattern Positive (.)
--- NOTE | 2025-05-04 15:23 | CONSULT_PTH ---
PATIENT: Julieta Reyes LOC: [id number] U#:[id number] AGE/SX: 29/F ROOM: 303 RE05/03/[address]: Latonya De Luna APRN : 1995 BED: 01 DIS: 05/05/2025 SPEC #: [id number] RECD: 05/04/25 16:24 STATUS: SELAM REQ #: [id number] WAYNE: 05/04/25 15:[address]: Heather Harper DEPT: [facility] Consult RECD BY: Naeem Canchola MLT, ([facility]) ENTERED: 05/04/25 16:28 SP TYPE: Consult OTHR DR: IRONWORKER HELPER SHOP PHYSICIAN Sidney Real MD Tissues: A - Bronchial Washing Procedures: Cell Block Cytopathology Cytospin
[2025-05-04 16:22] LABS: Appearance Bronchial Fluid Hazy; Color Bronchial Fluid Colorless; Eosinophils Bronchial Fluid 2 %; Lymphocytes Bronchial Fluid 4 %; Macrophages Bronchial Fluid 2; Monocytes Bronchial Fluid 4 %; Neutrophils Bronchial Fluid 35 %; Other Cells Bronchial Fluid 53 %; Source Bronchial Fluid Bronchial Lavage
[2025-05-04] MEDS: ACETAMINOPHEN/BUTALBITAL/CAFFEINE 325-50-40 MG TABLET (FIORICET) 1 TAB PO (18:24)
[2025-05-04 21:07] LABS: Anti-MPO Antibodies 1.3 units (0.0-0.9)
[2025-05-05] VITALS (10 sets, daily range): BP systolic 128–132; BP diastolic 75–80; PULSE 79–115; RESP 18–20; TEMP 36.1–36.6; O2SAT 98–99
[2025-05-05] MEDS: IPRATROPIUM 0.5 MG/ALBUTEROL SULFATE 2.5 MG (BASE) AMPUL.NEB 3 ML INHALATION ×4 (01:39→16:10)
[2025-05-05] MEDS: CEFEPIME 2 GM in SODIUM CHLORIDE 0.9% IV 50 ML 100 ML IVPB ×3 (02:30→17:55)
[2025-05-05] MEDS: levoFLOXacin 750 MG/D5W 150 ML 750 MG/150 ML BAG 100 MG IVPB (03:41)
[2025-05-05 05:11] LABS: Hematocrit 35.2 % (37.0-47.0); Hemoglobin 12.0 g/dL (12.0-15.0); Mean Corpuscular HGB Conc 34.1 g/dl (32-36); Mean Corpuscular Hemoglobin 30.7 pg (26-34); Mean Corpuscular Volume 90.0 fl (80-100); Platelet Count Result 282 k/mm3 (150-375); Red Blood Count 3.91 M/mm3 (4.2-5.4); White Blood Count 5.8 K/mm3 (4.5-10.0)
[2025-05-05 05:31] LABS: Alanine Aminotransferase 31 U/L (6-35); Albumin Level 3.6 g/dL (3.5-5.1); Alkaline Phosphatase 73 U/L (38-126); Anion Gap 2 mmol/L (4-12); Aspartate Amino Transferase 30 U/L (14-36); Bilirubin,Total 0.6 mg/dL (0.2-1.3); Blood Urea Nitrogen 8 mg/dL (7-17); Calcium 9.1 mg/dL (8.4-10.2); Carbon Dioxide 25 mmol/L (22-30); Chloride 107 mmol/L (98-107); Estimated CRCL calculation 153 ml/min; Estimated Glomerular Filt Rate > 60; Glucose 88 mg/dL (65-110); Potassium 3.8 mmol/L (3.4-5.0); Sodium 134 mmol/L (137-145); Total Protein 7.0 g/dL (6.3-8.2)
[2025-05-05] MEDS: guaiFENesin 12 HR 600 MG TABCR 1200 MG PO (08:28)
[2025-05-05] MEDS: ENOXAPARIN 40 MG/0.4 ML SYRINGE SUB-Q (08:28)
[2025-05-05] MEDS: BENZONATATE 100 MG CAPSULE 200 MG PO ×3 (08:28→17:55)
--- NOTE | 2025-05-05 09:03 | P.PNPL_ITS ---
Progress Note: A&P Assessment and Plan (1) Lung mass: Code(s): R91.8 - Other nonspecific abnormal finding of lung field Status: Acute Assessment and Plan: female with bilateral large lung masses first seen on chest x-ray 02/10/2025 and on more recent CT scans from 03/17/2025 and 04/26/2025, now the masses in RUL, RLL and LLL with largest 9.0 X 5.2 in RUL and are without vascular or airway distortion within the masses and with some progression since 03/17/2025, mediastinal lymphadenopathy that has progressed since 03/17/2025. She complains of a history of migraines that have all been worsening over the last few months, painful swollen hands that have been worse over the last 6-8 months, blurry vision worse over the last 2 months. HIV negative, MRSA swab negative, COVID, influenza, RSV RT PCR assay negative. Eosinophils 122 per micro L on admission. Etiology: Sarcoidosis, lymphoma, cryptogenic organizing pneumonia, fungal infection and doubt metastatic disease, bacterial infection, Eosinophilic pneumonia, or vasculitis. 05/03 plan: Will proceed with bronchoscopy with BAL and transbronchial biopsies as soon as can be scheduled. I have discussed with assist coordinator and hopefully this will occur today. Unfortunately no anesthesia time later today. Continue vancomycin, cefepime and levofloxacin for now. Will hold off on any systemic steroids until pathology has returned. I will send serologies for autoimmune disease. I will order a NEELA screen that includes 11 different auto antibodies, an ANCA screen, a rheumatoid factor, anti CCP antibody, hypersensitivity pneumonitis panel, a CPK, an aldolase level, and myomarker 3 plus profile. I will send respiratory pathogen panel, urine for Legionella, urine for pneumococcal antigen, urine for Histoplasma, mycoplasma IgM, Aspergillus IgE titers. CMV titers, EBV titers. 05/04/2025: Patient states that her breathing at rest is a little bit better and overall she feels 25% back to her normal. Her dyspnea on exertion is a little bit better but persists at 20 ft, walking to the bathroom. She has no change in her persistent dry cough. Room air saturations are 100%. She is afebrile. White blood cell count 6.1, creatinine 0.69. Patient an overnight oximetry on room air with recording duration of 6 hours and 17 minutes. Average saturation 97%. Low saturation 93%. Time with saturation less than or equal to 88% was 0 minutes. Oxygen desaturation index 1.0. Plan: Will proceed with bronchoscopy with BAL and transbronchial biopsies. Continue vancomycin, cefepime and levofloxacin (all day 2) pending blood cultures and additional microbiology studies. Serologies: CPK 54, RF 14, Positive greater than 12. Anti CCP antibody 23, positive greater than 19, positive NEELA at 1:160, anti MPO antibody at 1.3, positive greater than 0.9. aldolase negative at 4.5. anti PR3 antibody was canceled by lab and we have called lab core to add on and they have agreed to do this. Myositis panel pending. Hypersensitivity pneumonitis panel pending. Titers: CMV IgG less than 0.6, negative. CMV IgM less than 30, negative. Hepatitis A, B and C screen negative. EBV capsid IgG positive at 87.3. EBV nuclear antigen IgG antibody positive at 186, EBV capsid antigen IgM negative at less than 36. Later in the day patient underwent bronchoscopy. All airways patent, mucosa normal, BAL medial segment right lower lobe with 140 in and 42 mL of non bloody fluid returned. Eleven transbronchial biopsies obtained from lateral, superior, posterior segments right lower lobe and the posterior segment right upper lobe. Results: BAL cell count: Neutrophils 35%, lymphocytes 4%, monocytes 4%, eosinophils 2%, macrophages 2%, other 53%. I reviewed the BAL cytospin with pathology on 05/05/2025 and there are a few multinucleated giant cells, no evidence of clonal lymphocyte population and no significant eosinophilia. 05/05/25: Overall the patient tells me she slept well. She is slowly feeling better. States she is 65% back to her baseline. She has persistent dyspnea on exertion but this has improved. She has continued sweating episodes. She is afebrile. Room air saturations 99%. White blood cell count 5.8, creatinine 0.69. weight 129.3. She has a positive NEELA at 1:160, positive rheumatoid factor at 14, positive CCP antibody at 23 and positive anti MPO antibody at 1.3. Plan: I have spoken to pathology and have rushed the transbronchial biopsies so that they may be able to be viewed later today. I spoke with the pathologist. Patient with 5 years history of painful hands, swelling of the fingers such as she can wear her wedding ring, painful wrists elbows knees ankles and back. she has a history of headaches, migraines, blurred vision. Positive serologies as above with multiple lung masses. Possible etiologies: sarcoid, rheumatologic lung disease, MPO associated vasculitis, lymphoma. Will await transbronchial biopsies but even if this is diagnostic for sarcoid, lymphoma or vasculitis, I recommend referral to higher level of care facility for evaluation by additional Pulmonary Team, rheumatology and thoracic surgery for diagnosis, possible additional biopsy which can't be performed at [facility] (EBUS vs VATS with biopsy) and treatment options. Discussed with patient and who are in agreement for transfer. Discussed with hospitalist, Latonya De Luna who will initiate transfer. Currently the patient is receiving cefepime and levofloxacin, both day 3. Will continue. Vancomycin has been discontinued with negative MRSA swab. Patient states that the DuoNebs help her breathe and will continue. Pulmonary inpatient consult services will resume on 05/07/2025, call with questions. Discussed with Latonya De Luna. (2) Asthma: Code(s): J45.909 - Unspecified asthma, uncomplicated Status: Acute Assessment and Plan: Regarding patient's history of asthma she was diagnosed to about age 16-16 and was given p.r.n. albuterol. Her triggers include perfumes, change in the season from spring to summer and from fall to winter, she takes p.r.n. albuterol but has not had any physician follow-up and has not taking any albuterol in 2 years. She wheezes when she exerts herself. 05/03/2025: Patient does not feel like she is having an asthma exacerbation. She has no wheezing. Plan: Will continue albuterol nebulizer q.6 hours. 05/04/2025: Patient states the albuterol nebulizers are helping her. Plan: I will add ipratropium today and place her on DuoNebs q.6 hours. 05/05/25: no wheezing on exam. Plan: Continue ipratropium in DuoNebs and will change to q.4 hours while awake Subjective Date/time seen: 05/05/25 09:03 Interval history: 05/03/2025: This is a new pulmonary consult for lung masses. 29-year-old with a history of asthma, tobacco use, and lung masses. Regarding patient's history of asthma she was diagnosed to about age [age] and was given p.r.n. albuterol. Her triggers include perfumes, change in the season from spring to summer and from fall to winter, she takes p.r.n. albuterol but has not had any physician follow-up and has not taking any albuterol in 2 years. She wheezes when she exerts herself. Regarding her tobacco use, the patient smoked 2 packs per day from age [age] for a total of 28 pack years, currently she is smoking half a pack per day. She smoked marijuana daily from age [age] and recently smokes 1 time every 2 weeks. Patient was exposed to secondhand smoke from her mother and currently smoke exposed to secondhand smoke from her . Patient vape tobacco products for 3 months and quit 1 month ago. Patient did methamphetamine 2 to 3 times a week from age [age] and has not done any since then. She denies cocaine, heroin use. 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 Patient denies prior history of cancer, chemotherapy, radiation therapy. No significant family history. Her grandpa has colon cancer he is in his 70s. She denies recurrent sinus disease. She has no new skin rashes, no new swollen or painful joints. She does complain of painful week hands occasionally dropping her phone for the last 6-8 months. She has headaches for 5 years that have been come becoming more frequent. She describes blurry vision for 3 years which is worse over the last 2 months and pain behind both eyes. 01/17/2025: Presented to the emergency room with nausea, vomiting and diarrhea. Room air saturations 100%. Creatinine 0.93, UA was negative for blood or protein. White blood cell count 7.0, eosinophils 5.1%. Diagnosed with acute viral illness and no meds were given. 02/09/2025: Presented to the ER complaining of hot, cold, sweats, nausea, vomiting, diarrhea. Exposed to sick children. She felt bloated. Room air saturations 100%. White blood cell count 8.3, creatinine 0.57, COVID, influenza, RSV RT PCR assay negative. Chest x-ray with rounded masses right lower lobe and right mid lung field. Patient was treated with azithromycin and Augmentin. 03/10/2025 presented with vaginal bleeding and a positive beta hCG. Returned on 03/12 and then 03/14 with vaginal bleeding and of sound to have a ruptured a toxic requiring laparoscopic left fallopian tube and ovary removal. Patient was discharged home. Patient described a minimal dry cough that was nothing out of the ordinary for her and otherwise had no breathing issues on 03/14/2025. 03/17/2025: Patient presented to the emergency depart with abdominal pain, nausea no vomiting. Room air saturations 99%. CT scan chest abdomen and pelvis demonstrated well-circumscribed round consolidative masses in the right upper lobe, 2 distinct lesions in the right lower lobe and 1 in the left lower lobe. White blood cell count 8.3, creatinine 0.65. Patient was told she had pneumonia and if she took antibiotics lesions with go away. She was prescribed azithromycin and Augmentin. She took those and felt no different. On 03/29 the patient noticed the development of rest shortness of breath and dyspnea on exertion. Her dry cough had increased in intermittently she had chest pain. Symptoms progressed on 04/23 she had hot and cold feelings with perspiration temperature was 98.2?, she had worsening dry cough and phlegm 2 to 3 times a day on a good day and 5-10 the on a bad day described as green to yellow or milky white. 04/26/2025 patient presented to the emergency room with continued respiratory complaints, dizziness, lightheaded, dyspnea on exertion across the room. Room air saturations 99%. White blood cell count 6.8, eosinophils 3.3%. Creatinine 0.65. CT scan of the chest compared to 03/17/2025 showed continued pulmonary round consolidative infiltrates right upper lobe, right lower lobe x2 and left lower lobe. The mass is not do not distort pulmonary vasculature or the airways. There was minimal progression from 03/17/2025. There was increased mediastinal adenopathy. Patient was given Augmentin and doxycycline but she could not afford these and did not fill these prescriptions. 05/02/2025: Patient presented to the emergency room with worsening shortness of breath at rest and dyspnea on exertion, cough with green to yellow phlegm, her kids had similar symptoms. Her blood pressure is 119/81, heart rate 86, respirations 18, room air saturations 99%. White blood cell count 6.1, e osinophils 2%, CRP 2.5, creatinine 0.63, HIV negative, MRSA swab negative, COVID influenza RSV RT PCR assay negative. Room air blood gas 7.43/32/79. Patient was treated with Solu-Medrol 125 x 1 dose, vancomycin, cefepime and Levaquin. Patient was given DuoNebs q.6 hours. 05/03/2025: Patient states she is the same. She has continued shortness of breath at rest and dyspnea on exertion. She is afebrile. She is on room air with saturations 98%. She is afebrile. White blood 6.2, creatinine 0.64. procalcitonin 0.1. BNP 51. 05/04/2025: Patient states that her breathing at rest is a little bit better and overall she feels 25% back to her normal. Her dyspnea on exertion is a little bit better but persists at 20 ft, walking to the bathroom. She has no change in her persistent dry cough. Room air saturations are 100%. She is afebrile. White blood cell count 6.1, creatinine 0.69. Patient an overnight oximetry on room air with recording duration of 6 hours and 17 minutes. Average saturation 97%. Low saturation 93%. Time with saturation less than or equal to 88% was 0 minutes. Oxygen desaturation index 1.0. Later in the day patient underwent bronchoscopy. All airways patent, mucosa normal, BAL medial segment right lower lobe with 140 in and 42 mL of non bloody fluid returned. Eleven transbronchial biopsies obtained from lateral, superior, posterior segments right lower lobe and the posterior segment right upper lobe. Results: BAL cell count: Neutrophils 35%, lymphocytes 4%, monocytes 4%, eosinophils 2%, macrophages 2%, other 53%. I reviewed the BAL cytospin with pathology on 05/05/2025 and there are a few multinucleated giant cells, no evidence of clonal blood refer a bell and no significant eosinophilia. 05/05/2025: Overall the patient tells me she slept well. She is slowly feeling better. States she is 65% back to her baseline. She has persistent dyspnea on exertion but this has improved. She has continued sweating episodes. She is afebrile. Room air saturations 99%. White blood cell count 5.8, creatinine 0.69. weight 129.3. She has a positive NEELA at 1-160, positive rheumatoid factor at 14, positive CCP antibody at 23 and positive anti MPO antibody at 1.3. Discussed with patient and and recommended referral to higher level of care facility for evaluation by additional Pulmonary Team, rheumatology and thoracic surgery for possible VATS with biopsy. DATA: 05/04/25: Patient had an overnight oximetry on room air with recording duration of 6 hours and 17 minutes. Average saturation 97%. Low saturation 93%. Time with saturation less than or equal to 88% was 0 minutes. Oxygen desaturation index 1.0. 05/02/25: EXAMINATION: XR chest 2V, 05/02/2025 18:51 CONSUMER MARKETING ANALYST HISTORY: cough COMPARISON: 04/26/2025. Technique: 2 views obtained. Findings: There are bilateral lung masses identified the largest in the right lower lobe 4 x 5 cm. No pneumothorax. Heart is normal size. Mediastinal and hilar contours are within normal limits. Bony thorax no acute abnormality. Impression: Bilateral metastasis . Findings appear relatively unchanged compared to the previous CT 04/26/2025. EXAMINATION: CTA chest PE abdomen pel DATE: 04/26/2025 06:45 INDICATION: Shortness of breath. Abdominal pain. TECHNIQUE: Computed tomography angiography (CTA) of the chest was performed with 100 mL Omnipaque-350 intravenous contrast timed to evaluate the pulmonary arteries. Coronal maximum intensity projection 3D-reconstructions were created by the technologist. Computed tomography (CT) of the abdomen and pelvis was performed with intravenous contrast. Automated exposure control and iterative reconstruction technique were employed. The dose-length product was 2404.64 mGy- cm. COMPARISON: CT 03/17/2025 FINDINGS: CTA chest: There are stable scattered nodules and masses involving all lobes. The largest mass measures 9.0 x 5.2 cm in right upper lobe. No pleural effusion. The heart size is normal. No pericardial effusion. There is mediastinal and bilateral hilar lymphadenopathy. There is no pulmonary embolus. The aorta is normal. There is mild chronic anterior wedging of multiple thoracic vertebral bodies. There is mild thoracic spondylosis. CT abdomen and pelvis: The liver, gallbladder, spleen, pancreas, adrenal glands, and kidneys are normal. There are no dilated loops of bowel. The appendix is normal. There is no free intraperitoneal fluid. There is mild bilateral external iliac and left common iliac lymphadenopathy. There is mild lumbar spondylosis. There is mild chronic anterior wedging of L1 vertebral body. IMPRESSION: 1. No pulmonary embolus. 2. Stable multifocal lung disease. The differential diagnosis includes pneumonia, eosinophilic pneumonia, sarcoid, vasculitis, and organizing pneumonia. 3. Mild chest and pelvic lymphadenopathy, likely reactive. 03/17/25: EXAMINATION: CTA chest PE abdomen pel INDICATION: Abdominal pain. COMPARISON: Chest single view 02/10/2025 FINDINGS: CTA chest: There are scattered nodules and masses in the lungs with involvement of all lobes. The largest mass measures 8.3 x 4.0 mm in right upper lobe. There is mild atelectasis bilaterally. The heart size is normal. No pericardial effusion. There is mild bilateral hilar lymphadenopathy. There is mild bilateral subpectoral lymphadenopathy. The heart size is normal. No pericardial effusion. There is no pulmonary embolus. There is mild thoracic spondylosis. CT abdomen and pelvis: The liver is normal. The gallbladder is distended, likely secondary to fasting. The spleen, pancreas, adrenal glands, and kidneys are normal. There are no dilated loops of bowel. The appendix is normal. There is physiologic fluid in the pelvis. There is free intraperitoneal gas and gas in the body wall, consistent with recent surgery. There is mild left external iliac lymphadenopathy. There is mild lumbar spondylosis. IMPRESSION: 1. No pulmonary embolus. 2. 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 The differential diagnosis includes pneumonia, eosinophilic pneumonia, sarcoid, vasculitis, and organizing pneumonia. 3. Mild chest and pelvic lymphadenopathy, likely reactive. Review of Systems Constitutional: Constitutional: Reports no additional constitutional complaints Eyes: Eyes: Reports no additional eye complaints ENT: Reports system reviewed and no additional complaints, except as documented Cardiovascular: Cardiovascular: Reports no additional cardiovascular complaints Respiratory: Respiratory: Reports no additional respiratory complaints Gastrointestinal: Gastrointestinal: Reports no additional gastrointestinal complaints Musculoskeletal: Musculoskeletal: Reports no additional musculoskeletal complaints Neurologic: Reports system reviewed and no additional complaints, except as documented Psychiatric: Psychiatric: Reports no additional psychiatric complaints Endocrine: Endocrine: Reports no additional endocrine complaints Hematologic/Lymphatic: Hematologic/Lymphatic: Reports no additional hem atologic/lymphatic complaints Allergic/Immunologic: Allergic/Immunologic: Reports no additional allergic/immunologic complaints Exam Const: General: cooperative and comfortable Orientation/consciousness: oriented to person, oriented to place and oriented to time Other: obese HENMT: Head: normal to inspection Ears: hearing grossly normal bilaterally Other: No oral ulcers. No lacrimal gland enlargement. Eyes: General: appearance normal, both eyes and all related structures Neck: Neck: normal visual inspection Chest: Chest palpation & inspection: normal inspection of the chest Resp: Effort & Inspection: normal respiratory effort and able to speak in complete sentences Auscultation: no crackles, no rales, no rhonchi, no wheezes and lung sounds not diminished Cardio: Jugular venous distension: no JVD GI: Inspection: normal to inspection Other: Laparoscopic wounds healing well. No masses. Skin: General skin exam: normal color Neuro: General: oriented to person, oriented to place and oriented to time Extrem: General: normal to inspection Other: No edema patient has painful digits, wrists, elbows and shoulders bilaterally as well as tender ankles. Psych: Appearance: grossly normal Objective Data Vital Signs Vital Signs: Vital Signs - 24 hr 05/04/25 09:05 05/04/25 10:00 05/04/25 12:30 Temperature Pulse Rate 78 75 Respiratory Rate 18 16 Blood Pressure Pulse Oximetry 95 Oxygen Delivery Room Air Oxygen Flow Rate Fraction of Inspired Oxygen 05/04/25 12:36 05/04/25 13:04 05/04/25 14:59 Temperature 36.5 C 36.4 C L Pulse Rate 82 77 117 H Respiratory Rate 16 18 20 Blood Pressure 135/80 141/72 H Pulse Oximetry 99 100 Oxygen Delivery Room Air Simple Face Mask Oxygen Flow Rate 10 Fraction of Inspired Oxygen 05/04/25 15:09 05/04/25 15:19 05/04/25 15:29 Temperature Pulse Rate 80 80 75 Respiratory Rate 25 H 20 30 H Blood Pressure 141/72 H 136/63 103/58 L Pulse Oximetry 100 95 94 Oxygen Delivery Simple Face Mask Simple Face Mask Room Air Oxygen Flow Rate 5 5 Fraction of Inspired Oxygen 05/04/25 15:39 05/04/25 15:49 05/04/25 16:13 Temperature 36.3 C L Pulse Rate 81 72 74 Respiratory Rate 24 H 24 H 16 Blood Pressure 116/65 95/52 L 117/72 Pulse Oximetry 96 95 98 Oxygen Delivery Room Air Room Air Oxygen Flow Rate Fraction of Inspired Oxygen 05/04/25 19:49 05/04/25 19:50 05/04/25 20:00 Temperature Pulse Rate 84 84 Respiratory Rate 20 20 Blood Pressure Pulse Oximetry 97 Oxygen Delivery Room Air Room Air Oxygen Flow Rate Fraction of Inspired Oxygen 21 05/04/25 20:02 05/04/25 20:15 05/05/25 01:39 Temperature 36.7 C Pulse Rate 85 77 115 H Respiratory Rate 20 16 20 Blood Pressure 122/69 Pulse Oximetry 98 Oxygen Delivery Oxygen Flow Rate Fraction of Inspired Oxygen 05/05/25 01:48 05/05/25 05:25 05/05/25 08:51 Temperature 36.1 C L Pulse Rate 105 H 79 Respiratory Rate 20 20 Blood Pressure 128/75 Pulse Oximetry 99 99 Oxygen Delivery Room Air Oxygen Flow Rate Fraction of Inspired Oxygen 05/05/25 08:51 05/05/25 08:59 Temperature Pulse Rate 86 94 Respiratory Rate 20 20 Blood Pressure Pulse Oximetry Oxygen Delivery Oxygen Flow Rate Fraction of Inspired Oxygen Intake/Output Intake/Output: Intake & Output 05/02/25 05/03/25 05/04/25 05/05/25 23:59 23:59 23:59 23:59 Intake Total 1180 2340 1100 Output Total 650 Balance 530 2340 1100 Meds/Results Medications: Active Medications Generic Name Dose Route Start Last Admin Trade Name Freq PRN Reason Stop Dose Admin Acetaminophen/Butalbital/Caffeine 1 tab 05/03/25 13:14 05/04/25 18:24 Acetaminophen/Butalbital/Caffeine 325-50-40 Mg Tablet (Fioricet) PO 1 tab Q4H PRN Administration Migraine Headache Albuterol/Ipratropium 3 ml 05/04/25 14:00 05/05/25 08:50 Ipratropium 0.5 Mg/Albuterol Sulfate 2.5 Mg (Base) Ampul.Neb 3 Ml INHALATION 3 ml Q6HRT KASEY Administration Benzonatate 200 mg 05/03/25 17:00 05/05/25 08:28 Benzonatate 100 Mg Capsule PO 200 mg TID KASEY Administration Calcium Carbonate 200 mg 05/02/25 22:10 Calcium Carbonate (Tums) 500 Mg (200 Mg Elemental) PO Q6H PRN Indigestion Docusate Sodium 100 mg 05/02/25 22:10 Docusate Sodium 100 Mg Capsule PO Q12H PRN Constipation Enoxaparin Sodium 40 mg 05/03/25 09:00 05/05/25 08:28 Enoxaparin 40 Mg/0.4 Ml Syringe SUB-Q 40 mg DAILY KASEY Administration Guaifenesin 1,200 mg 05/03/25 21:00 05/05/25 08:28 Guaifenesin 12 Hr 600 Mg Tabcr PO 1,200 mg Q12HR KASEY Administration Cefepime HCl 2 gm/ Sodium 50 mls @ 100 mls/hr 05/03/25 11:00 05/05/25 02:30 Chloride IVPB 100 mls/hr Q8H KASEY Administration Levofloxacin/Dextrose 750 mg in 150 mls @ 100 mls/hr 05/04/25 03:00 05/05/25 03:41 Levaquin 750 Mg/D5w 150 Ml IVPB 100 mls/hr Q24H KASEY Administration Ibuprofen 600 mg 05/02/25 22:10 Ibuprofen 600 Mg Tablet PO Q6H PRN Pain Rated 1-3 Radiology Results: ITS Impressions Upper Quadrant Ultrasound 05/03/25 15:23 IMPRESSION: No evidence for acute cholecystitis or cholelithiasis. No biliary ductal dilatation is noted. Brain MRI 05/04/25 12:55 IMPRESSION: 1. Normal brain with no acute intrarenal process or abnormally enhancing brain lesions. Chest X-Ray 05/04/25 15:40 IMPRESSION: 1. Pulmonary masses as described above. No evidence of pneumothorax. Imaging Bronch 05/04/25 15:58 IMPRESSION: 1. Fluoroscopy utilized during bronchoscopy with reported transbronchial biopsies. See procedure note for further detail. Labs Labs: Laboratory Results - last 24 hr 05/03/25 05/03/25 05/03/25 05:28 05:29 10:27 WBC RBC Hgb Hct MCV MCH MCHC RDW Plt Count MPV Sodium Potassium Chloride Carbon Dioxide Anion Gap BUN Creatinine Estim Creat Clear Calc Estimated GFR Glucose Calcium Total Bilirubin AST ALT Alkaline Phosphatase Total Protein Albumin Aldolase POC Urine HCG, Qual Bronch Specimen Source Bronchial Fluid Color Bronchial Fluid Appearance Bronchial Neutrophils Bronchial Lymphocytes Bronchial Monocytes Bronchial Eosinophils Bronchial Macrophages Bronchial Other Cells Vancomycin Trough CCP IgG/IgA Ab 23 H NEELA Screen Positive A NEELA Speckled Pattern 1:160 H NEELA Comment Comment Myeloperoxidase Ab 1.3 H EBV Capsid Ag IgG Ab 87.3 H EBV Capsid Ag IgM Ab <36.0 EBV Nuclear Antigen Ab 186.0 H EBV Interpretation Comment M.pneumoniae IgM Titer <770 05/03/25 05/04/25 05/04/25 10:43 08:56 13:04 WBC RBC Hgb Hct MCV MCH MCHC RDW Plt Count MPV Sodium Potassium Chloride Carbon Dioxide Anion Gap BUN Creatinine Estim Creat Clear Calc Estimated GFR Glucose Calcium Total Bilirubin AST ALT Alkaline Phosphatase Total Protein Albumin Aldolase 4.5 POC Urine HCG, Qual Negative Bronch Specimen Source Bronchial Fluid Color Bronchial Fluid Appearance Bronchial Neutrophils Bronchial Lymphocytes Bronchial Monocytes Bronchial Eosinophils Bronchial Macrophages Bronchial Other Cells Vancomycin Trough 6.6 L CCP IgG/IgA Ab NEELA Screen NEELA Speckled Pattern NEELA Comment Myeloperoxidase Ab EBV Capsid Ag IgG Ab EBV Capsid Ag IgM Ab EBV Nuclear Antigen Ab EBV Interpretation M.pneumoniae IgM Titer 05/04/25 05/05/25 15:23 04:38 WBC 5.8 RBC 3.91 L Hgb 12.0 Hct 35.2 L MCV 90.0 MCH 30.7 MCHC 34.1 RDW 12.4 Plt Count 282 MPV 9.0 Sodium 134 L Potassium 3.8 Chloride 107 Carbon Dioxide 25 Anion Gap 2 L BUN 8 Creatinine 0.69 L Estim Creat Clear Calc 153 Estimated GFR > 60 Glucose 88 Calcium 9.1 Total Bilirubin 0.6 AST 30 ALT 31 Alkaline Phosphatase 73 Total Protein 7.0 Albumin 3.6 Aldolase POC Urine HCG, Qual Bronch Specimen Source Bronchial lavage Bronchial Fluid Color Colorless Bronchial Fluid Appearance Hazy Bronchial Neutrophils 35 Bronchial Lymphocytes 4 Bronchial Monocytes 4 Bronchial Eosinophils 2 Bronchial Macrophages 2 Bronchial Other Cells 53 Vancomycin Trough CCP IgG/IgA Ab NEELA Screen NEELA Speckled Pattern NEELA Comment Myeloperoxidase Ab EBV Capsid Ag IgG Ab EBV Capsid Ag IgM Ab EBV Nuclear Antigen Ab EBV Interpretation M.pneumoniae IgM Titer
[2025-05-05 11:58] LABS: Add Urine Microscopic? NO; Appearance Urine Clear (Clear); Glucose Urine UA Negative (Negative); Leukocyte Esterase Ur Negative LEU/UL (Negative); Nitrate Urine Negative (Negative); Specific Grav Ur 1.006 (1.001-1.035)
[2025-05-05 13:09] LABS: ANA by IFA Rfx Titer/Pattern Positive (.); ANA by IFA Rfx YES YES
--- NOTE | 2025-05-05 16:17 | P.PNIM_ITS ---
Progress Note: A&P Assessment and Plan (1) Atypical pneumonia: Code(s): J18.9 - Pneumonia, unspecified organism Status: Acute Assessment and Plan: Sarcoidosis, lymphoma, cryptogenic organizing pneumonia, fungal infection and doubt metastatic disease, bacterial infection, Eosinophilic pneumonia, or vasculitis. Failed outpatient antibiotics Pulmonology consulted see Dr. Real's note for extensive details Transthoracic bronchoscopy today with BAL and biopsies Holding off on further steroids extended respiratory pathogen panel pending urine Legionella and pneumococcal antigen pending EBV CMV HIV and histoplasmosis pending TB, MAC or fungal causes. Pending Continue cefepime & Levaquin Guaifenesin Tessalon Perles Plan for transfer to [facility] for rheumatologic and further pulm work-up s/p bronch biopsy results (see Dr. Real note) (2) Migraine: Code(s): G43.909 - Migraine, unspecified, not intractable, without status migrainosus Status: Inactive Assessment and Plan: Patient with complaints of migraines for the last couple months increasing blurry vision Started on Fioricet MRI no acute finding (3) Transaminitis: Code(s): R74.01 - Elevation of levels of liver transaminase levels Status: Acute Assessment and Plan: no evidence of hepatic steatosis or cirrhosis on CT of the chest abdomen pelvis performed in April. hepatitis A, B and C antibody negative CMP WDL Liver ultrasound WDL (4) Obesity (BMI 30-39.9): Code(s): E66.9 - Obesity, unspecified Status: Acute Assessment and Plan: ApneaLink WDL Plan Plan for trasnfer to [facility] for rheumatologic and further pulmonary workup. Pt has been accepted by Dr. Moreno, pending bed placement. Time Spent With Patient Time: 60 Subjective Date/time seen: 05/05/25 1238 Interval history: Pt sitting on the bed comfortably upon my arrival. Pt with x2 sons and at the bedside. pt reports that her HAYDEN/SOB is better today. Reiterated her with the plan for transfer, pt agreeable. Review of Systems Review of Systems: 12 systems were reviewed with pertinent positives and negatives per HPI. Except as documented in the HPI, all other systems were reviewed and are negative. Exam Const: Other: Mildly ill-appearing, obese, appears stated age HENMT: Other: Mucous membranes are moist, no oral pharyngeal erythema, crowded posterior oropharynx Eyes: Other: Pupils are equal and reactive, no scleral icterus, no conjunctival pallor Neck: Other: No JVD, no lymphadenopathy, large neck circumference Resp: Other: Clear to auscultation bilaterally, no increased work of breathing Cardio: Other: Regular rate, regular rhythm, 2+ bilateral radial pedal pulses, no murmur GI: Other: Soft, nontender, nondistended, normoactive bowel sounds Skin: Other: No jaundice, no pallor, areas of irrigation of melena consistent with vitiligo, multiple tattoos of various quality on the extremities and back Neuro: Other: Alert oriented, speech is clear, no facial asymmetry, no localizing neurologic deficits noted during the course of conversation Extrem: Other: No clubbing, cyanosis or edema Psych: Other: Appropriate mood and affect, pleasant and cooperative, judgment and insight intact Objective Data Vital Signs Vital Signs: Vital Signs - 24 hr 05/04/25 19:49 05/04/25 19:50 05/04/25 20:00 Temperature Pulse Rate 84 84 Respiratory Rate 20 20 Blood Pressure Pulse Oximetry 97 Oxygen Delivery Room Air Room Air Fraction of Inspired Oxygen 21 05/04/25 20:02 05/04/25 20:15 05/05/25 01:39 Temperature 98.0 F Pulse Rate 85 77 115 H Respiratory Rate 20 16 20 Blood Pressure 122/69 Pulse Oximetry 98 Oxygen Delivery Fraction of Inspired Oxygen 05/05/25 01:48 05/05/25 05:25 05/05/25 08:30 Temperature 96.9 F L Pulse Rate 105 H 79 Respiratory Rate 20 20 Blood Pressure 128/75 Pulse Oximetry 99 Oxygen Delivery Room Air Fraction of Inspired Oxygen 05/05/25 08:51 05/05/25 08:51 05/05/25 08:59 Temperature Pulse Rate 86 94 Respiratory Rate 20 20 Blood Pressure Pulse Oximetry 99 Oxygen Delivery Room Air Fraction of Inspired Oxygen 05/05/25 11:53 05/05/25 12:02 05/05/25 16:00 Temperature 97.8 F Pulse Rate 84 83 86 Respiratory Rate 20 18 18 Blood Pressure 132/80 Pulse Oximetry 98 Oxygen Delivery Fraction of Inspired Oxygen 05/05/25 16:12 Temperature Pulse Rate 80 Respiratory Rate 20 Blood Pressure Pulse Oximetry Oxygen Delivery Fraction of Inspired Oxygen Intake/Output Intake/Output: Intake & Output 05/02/25 05/03/25 05/04/25 05/05/25 23:59 23:59 23:59 23:59 Intake Total 1180 2340 1680 Output Total 650 Balance 530 2340 1680 Meds/Results Medications: Active Medications Generic Name Dose Route Start Last Admin Trade Name Freq PRN Reason Stop Dose Admin Acetaminophen/Butalbital/Caffeine 1 tab 05/03/25 13:14 05/04/25 18:24 Acetaminophen/Butalbital/Caffeine 325-50-40 Mg Tablet (Fioricet) PO 1 tab Q4H PRN Administration Migraine Headache Albuterol/Ipratropium 3 ml 05/05/25 12:00 05/05/25 16:10 Ipratropium 0.5 Mg/Albuterol Sulfate 2.5 Mg (Base) Ampul.Neb 3 Ml INHALATION 3 ml [id number] KASEY Administration Benzonatate 200 mg 05/03/25 17:00 05/05/25 12:03 Benzonatate 100 Mg Capsule PO 200 mg TID KASEY Administration Calcium Carbonate 200 mg 05/02/25 22:10 Calcium Carbonate (Tums) 500 Mg (200 Mg Elemental) PO Q6H PRN Indigestion Docusate Sodium 100 mg 05/02/25 22:10 Docusate Sodium 100 Mg Capsule PO Q12H PRN Constipation Enoxaparin Sodium 40 mg 05/03/25 09:00 05/05/25 08:28 Enoxaparin 40 Mg/0.4 Ml Syringe SUB-Q 40 mg DAILY KASEY Administration Guaifenesin 1,200 mg 05/03/25 21:00 05/05/25 08:28 Guaifenesin 12 Hr 600 Mg Tabcr PO 1,200 mg Q12HR KAESY Administration Cefepime HCl 2 gm/ Sodium 50 mls @ 100 mls/hr 05/03/25 11:00 05/05/25 13:28 Chloride IVPB Infused Q8H KASEY Infusion Levofloxacin/Dextrose 750 mg in 150 mls @ 100 mls/hr 05/04/25 03:00 05/05/25 03:41 Levaquin 750 Mg/D5w 150 Ml IVPB 100 mls/hr Q24H KASEY Administration Ibuprofen 600 mg 05/02/25 22:10 Ibuprofen 600 Mg Tablet PO Q6H PRN Pain Rated 1-3 Radiology Results: ITS Impressions Upper Quadrant Ultrasound 05/03/25 15:23 IMPRESSION: No evidence for acute cholecystitis or cholelithiasis. No biliary ductal dilatation is noted. Brain MRI 05/04/25 12:55 IMPRESSION: 1. Normal brain with no acute intrarenal process or abnormally enhancing brain lesions. Chest X-Ray 05/04/25 15:40 IMPRESSION: 1. Pulmonary masses as described above. No evidence of pneumothorax. Imaging Bronch 05/04/25 15:58 IMPRESSION: 1. Fluoroscopy utilized during bronchoscopy with reported transbronchial biopsies. See procedure note for further detail. Labs Labs: Laboratory Results - last 24 hr 05/03/25 05/03/25 05/04/25 10:27 10:43 15:23 WBC RBC Hgb Hct MCV MCH MCHC RDW Plt Count MPV Sodium Potassium Chloride Carbon Dioxide Anion Gap BUN Creatinine Estim Creat Clear Calc Estimated GFR Glucose Calcium Total Bilirubin AST ALT Alkaline Phosphatase Total Protein Albumin Urine Color Urine Appearance Urine pH Ur Specific [place] Urine Protein Urine Glucose (UA) Urine Ketones Ur Blood (Man) Urine Nitrate Urine Bilirubin Urine Urobilinogen Ur Leukocyte Esterase Bronch Specimen Source Bronchial lavage Bronchial Fluid Color Colorless Bronchial Fluid Appearance Hazy Bronchial Neutrophils 35 Bronchial Lymphocytes 4 Bronchial Monocytes 4 Bronchial Eosinophils 2 Bronchial Macrophages 2 Bronchial Other Cells 53 NEELA Screen Positive A NEELA Speckled Pattern 1:320 H NEELA Comment Comment NEELA Comment 2 Comment Myeloperoxidase Ab 1.3 H Anti-sm/HOME VISITOR Abs <0.2 FILEMON-1 Antibody <0.2 Sjogren's Anti-SS-A >8.0 H Sjogren's Anti-SS-B 0.2 Mcfadden Antibodies <0.2 HOME VISITOR Antibodies 0.3 Scl-70 Scleroderma Ab <0.2 Double Strand DNA Ab 1 Ribosomal P Prot Ab <0.2 Chromatin Antibody <0.2 Centromere B Antibody <0.2 05/05/25 05/05/25 04:38 09:54 WBC 5.8 RBC 3.91 L Hgb 12.0 Hct 35.2 L MCV 90.0 MCH 30.7 MCHC 34.1 RDW 12.4 Plt Count 282 MPV 9.0 Sodium 134 L Potassium 3.8 Chloride 107 Carbon Dioxide 25 Anion Gap 2 L BUN 8 Creatinine 0.69 L Estim Creat Clear Calc 153 Estimated GFR > 60 Glucose 88 Calcium 9.1 Total Bilirubin 0.6 AST 30 ALT 31 Alkaline Phosphatase 73 Total Protein 7.0 Albumin 3.6 Urine Color Yellow Urine Appearance Clear Urine pH 7.0 Ur Specific [place] 1.006 Urine Protein Negative Urine Glucose (UA) Negative Urine Ketones Negative Ur Blood (Man) Negative Urine Nitrate Negative Urine Bilirubin Negative Urine Urobilinogen 0.2 Ur Leukocyte Esterase Negative Bronch Specimen Source Bronchial Fluid Color Bronchial Fluid Appearance Bronchial Neutrophils Bronchial Lymphocytes Bronchial Monocytes Bronchial Eosinophils Bronchial Macrophages Bronchial Other Cells NEELA Screen NEELA Speckled Pattern NEELA Comment NEELA Comment 2 Myeloperoxidase Ab Anti-sm/HOME VISITOR Abs FILEMON-1 Antibody Sjogren's Anti-SS-A Sjogren's Anti-SS-B Mcfadden Antibodies HOME VISITOR Antibodies Scl-70 Scleroderma Ab Double Strand DNA Ab Ribosomal P Prot Ab Chromatin Antibody Centromere B Antibody Quality VTE Prophylaxis VTE prophylaxis: pharmacologic ordered (Lovenox 40 mg subQ daily.)
[2025-05-09 09:08] LABS: Histoplasma Abs, Qn, DID Negative (Neg:<1:1)
== END 2025-05-05 18:50 | disposition left against medical advice (07) | DRG 142 ==
LOC: ANHED 20:56 → ANH3MEDSUR 21:23
PROVIDERS: Internal Medicine Pulmonary Disease; Nurse Practitioner Gerontology; Admitting Provider Internal Medicine; Emergency Provider Emergency Medicine
PROC: BB1DZZZ Fluoroscopy of Upper Airways (ICD-10-PCS; CPT 31624; principal; 2025-05-04 14:00)
DX: J84.10 Pulmonary fibrosis, unspecified (principal); G43.909 Migraine, unspecified, not intractable, without status migrainosus; R74.01 Elevation of levels of liver transaminase levels; E66.9 Obesity, unspecified; Z68.39 Body mass index [BMI] 39.0-39.9, adult; J45.909 Unspecified asthma, uncomplicated; R91.8 Other nonspecific abnormal finding of lung field; F17.210 Nicotine dependence, cigarettes, uncomplicated; Z59.02 Unsheltered homelessness; Z20.822 Contact with and (suspected) exposure to COVID-19
CPT/HCPCS: 0202U; 36415; 36600; 70553; 71045; 71046; 76705; 80053; 80074; 80202; 81003; 82085; 82550; 82805; 83605; 83690; 83880; 84145; 85018; 85025; 85027; 85610; 85652; 85730; 85999; 86001; 86003; 86038; 86140; 86200; 86331; 86364; 86430; 86480; 86606; 86609; 86644; 86645; 86664; 86665; 86671; 86698; 86703; 86738; 87040; 87070; 87186; 87205; 87254; 87449; 87637; 87641; 87899; 88108; 88184; 88305; 88312; 88313; 94640; 94762; 96374; 96375; 99199; 99285; A9270; A9577; G0378; G0432; J0692; J1650; J1956; J2003; J2004; J2704; J3373; J7030; J7040; J7120